=== PATIENT | female | born 1955 | race Two or more races ===

== ENCOUNTER → 2024-02-02 | Emergency (ER) | payer OTHER ==
[~2024-02-02] VITALS: Ht 152.4 cm; Wt 53.1 kg
[~2024-02-02] MED LIST: CIPR-173 PO; MET500T PO
[2024-02-02 17:22] VITALS: BP 145/83; PULSE 117; RESP 18; O2SAT 98
[2024-02-02 18:21] LABS: Urine Bacteria FEW /hpf (None Seen); Urine Blood TRACE /uL (Negative); Urine Clarity Clear (Clear); Urine Color Light-Yellow (Yellow); Urine Protein, UAD 2+ (Negative); Urine Specific Gravity 1.009 (1.001-1.035); Urine Urobilinogen Normal (Negative); Urine WBC 1 /hpf (0 - 5)
[2024-02-02 18:51] LABS: Basophils # (auto) 0 10 ^3/uL (0-0.2); Basophils % (auto) 0.4 % (0.0-2.0); Eosinophils # (auto) 0.1 10 ^3/uL (0-0.8); Eosinophils % (auto) 1.2 % (0.0-7.0); Hematocrit 28.5 % (36.0-46.0); Hemoglobin 9.5 g/dL (12.2-16.2); Lymphocytes # (auto) 1.6 10 ^3/uL (0.4-5.4); Lymphocytes % (auto) 14.5 % (10.0-50.0); Mean Corpuscular Hemoglobin 30.8 pg (28.0-32.0); Mean Corpuscular Hgb Conc. 33.5 g/dL (32.0-36.0); Mean Corpuscular Volume 92.1 fL (80.0-100.0); Monocytes # (auto) 1.2 10 ^3/uL (0-1.3); Monocytes % (auto) 10.4 % (0.0-12.0); Neutrophils # (auto) 8.2 10 ^3/uL (1.6-8.6); Neutrophils % (auto) 73.5 % (37.0-80.0); Red Blood Cells 3.09 10^6/uL (4.0-5.20); Red Cell Distribution Width 14.2 % (11.8-14.3); White Blood Cell 11.2 10^3/uL (4.4-10.8)
[2024-02-02 19:00] LABS: Alanine Aminotransferase 16 U/L (7-40); Albumin 4.1 g/dL (3.2-4.8); Alkaline Phosphatase 55 U/L (46-116); Anion Gap 12 (5-15); Aspartate Aminotransferase 8 U/L (13-40); BUN/Creatinine Ratio 7.3 (10.0-20.0); Blood Urea Nitrogen 37 mg/dL (9-23); Calcium 10.6 mg/dL (8.7-10.4); Carbon Dioxide 18 mmol/L (20-30); Chloride 111 mmol/L (98-107); Glucose 87 mg/dL (74-106); Potassium 3.7 mmol/L (3.5-5.1); Sodium 141 mmol/L (136-145)
[2024-02-02 19:01] LABS: Bilirubin, Total 0.2 mg/dL (0.2-1.0); Total Protein 6.6 g/dL (5.7-8.2)
== END | disposition home or self-care (01) ==
LOC: ER 16:36
DX: K57.32 Diverticulitis of large intestine without perforation or abscess without bleeding (principal); I12.9 Hypertensive chronic kidney disease with stage 1 through stage 4 chronic kidney disease, or unspecified chronic kidney disease; N18.9 Chronic kidney disease, unspecified; Z88.1 Allergy status to other antibiotic agents; Z88.8 Allergy status to other drugs, medicaments and biological substances
CPT/HCPCS: 36415; 74176; 80053; 81001; 85025

== ENCOUNTER 2024-04-03 10:17 | Inpatient (IN) | payer OTHER ==
[~2024-04-03] VITALS: Ht 152.4 cm; Wt 53.7 kg
[2024-04-03 11:28] LABS: Basophils # (auto) 0 10 ^3/uL (0-0.2); Basophils % (auto) 0.2 % (0.0-2.0); Eosinophils # (auto) 0.1 10 ^3/uL (0-0.8); Eosinophils % (auto) 0.6 % (0.0-7.0); Hematocrit 24.1 % (36.0-46.0); Hemoglobin 8.3 g/dL (12.2-16.2); Lymphocytes # (auto) 0.8 10 ^3/uL (0.4-5.4); Lymphocytes % (auto) 7.6 % (10.0-50.0); Mean Corpuscular Hemoglobin 32.5 pg (28.0-32.0); Mean Corpuscular Hgb Conc. 34.3 g/dL (32.0-36.0); Mean Corpuscular Volume 94.7 fL (80.0-100.0); Monocytes # (auto) 0.7 10 ^3/uL (0-1.3); Monocytes % (auto) 6.9 % (0.0-12.0); Neutrophils # (auto) 8.5 10 ^3/uL (1.6-8.6); Neutrophils % (auto) 84.7 % (37.0-80.0); Platelet Count (auto) 420 10^3/uL (140-450); Red Blood Cells 2.55 10^6/uL (4.0-5.20); Red Cell Distribution Width 14.5 % (11.8-14.3)
[2024-04-03 11:44] LABS: Alanine Aminotransferase 19 U/L (7-40); Albumin 4.3 g/dL (3.2-4.8); Alkaline Phosphatase 71 U/L (46-116); Anion Gap 9 (5-15); Aspartate Aminotransferase 10 U/L (13-40); BUN/Creatinine Ratio 7.4 (10.0-20.0); Blood Urea Nitrogen 48 mg/dL (9-23); Calcium 10.5 mg/dL (8.7-10.4); Carbon Dioxide 18 mmol/L (20-30); Chloride 112 mmol/L (98-107); Glucose 109 mg/dL (74-106); Lipase 26 U/L (12-53); Potassium 4.3 mmol/L (3.5-5.1); Sodium 139 mmol/L (136-145)
[2024-04-03 11:45] LABS: Bilirubin, Total < 0.2 mg/dL (0.2-1.0)
[2024-04-03 11:52] LABS: Urine Bacteria None Seen /hpf (None Seen)
[2024-04-03 12:06] LABS: Urine Blood Negative /uL (Negative); Urine Clarity Clear (Clear); Urine Color Light-Yellow (Yellow); Urine Protein, UAD 2+ (Negative); Urine Specific Gravity 1.009 (1.001-1.035); Urine Urobilinogen Normal (Negative); Urine WBC <1 /hpf (0 - 5)
[2024-04-03] MEDS: SODIUM CHLORIDE 0.9% 1,000 ML IV ONE ×2 (13:05→13:55)
[2024-04-03] MEDS: ALPRAZolam 0.25 MG TAB PO ONE (13:41)
[2024-04-03] MEDS: SODIUM CHLORIDE 0.9% 1,000 ML IV SCH (14:15)
[2024-04-03] MEDS ORDERED: NITROGLYCERIN 0.4 MG SL TAB SL PRN (14:15)
[2024-04-03] MEDS ORDERED: DOCUSATE SOD 100 MG CAP PO PRN (14:15)
[2024-04-03] MEDS ORDERED: MORPHINE SULFATE INJ 2 MG/ml SYRG IV PRN (14:15)
[2024-04-03] MEDS: levoFLOXacin 500MG 100 ML IV ONE (14:30)
[2024-04-03] MEDS: PANTOPRAZOLE 40 MG/10 ML VIAL INJ IV ONE (14:30)
[2024-04-03] MEDS: metroNIDAZOLE 500MG/100ML 100 ML IV ONE (14:30)
[2024-04-03] MEDS: ENOXAPARIN SOD 30 MG/0.3 ML SYRINGE SC SCH (16:00)
[2024-04-03 19:55] VITALS: PULSE 87; RESP 17; O2SAT 98
[2024-04-03] MEDS ORDERED: metroNIDAZOLE 500MG/100ML 100 ML IV SCH (22:00)
[2024-04-03] MEDS: cloNIDine HCL 0.1 MG TAB PO ONE (23:44)
[2024-04-04] MEDS ORDERED: PRAV20TA3 PO (00:58)
[2024-04-04] MEDS ORDERED: CARV6.2551 PO (00:58)
[2024-04-04] MEDS ORDERED: ONDA-188 PO (00:58)
[2024-04-04] MEDS ORDERED: MULT-1018 PO (00:58)
[2024-04-04] MEDS ORDERED: ALPR0.5T7 PO (00:58)
[2024-04-04] MEDS ORDERED: POTA1TAB4 PO (00:58)
[2024-04-04] MEDS ORDERED: BUSP10TA31 PO (00:58)
[2024-04-04] MEDS ORDERED: SERT-206 PO (00:58)
[2024-04-04] MEDS ORDERED: SPIR50TA5 PO (00:58)
[2024-04-04] MEDS ORDERED: LORA10TA6 PO (00:58)
[2024-04-04] MEDS ORDERED: LEVO75TA6 PO (00:58)
[2024-04-04] MEDS ORDERED: AMLO1TAB23 PO (00:58)
[2024-04-04] MEDS ORDERED: B-COTAB19 PO (00:58)
[2024-04-04] MEDS ORDERED: CALC0.25 PO (00:58)
[2024-04-04 01:00] VITALS: BP 156/76; PULSE 93; RESP 18; TEMP 98.7; O2SAT 97
[2024-04-04] MEDS: ACETAMINOPHEN/CODEINE#3 (300/30mg) TAB PO PRN (01:27)
[2024-04-04] MEDS: metroNIDAZOLE 500MG/100ML 100 ML IV SCH (01:37)
[2024-04-04 05:00] VITALS: BP 128/75; PULSE 93; RESP 19; TEMP 97.8; O2SAT 98
[2024-04-04 07:01] LABS: Basophils # (auto) 0 10 ^3/uL (0-0.2); Eosinophils # (auto) 0 10 ^3/uL (0-0.8); Hemoglobin 7.7 g/dL (12.2-16.2); Lymphocytes # (auto) 0.9 10 ^3/uL (0.4-5.4); Monocytes # (auto) 0.5 10 ^3/uL (0-1.3)
[2024-04-04 07:04] LABS: Basophils % (auto) 0.2 % (0.0-2.0); Eosinophils % (auto) 0.1 % (0.0-7.0); Hematocrit 22.8 % (36.0-46.0); Mean Corpuscular Hemoglobin 31.6 pg (28.0-32.0); Mean Corpuscular Hgb Conc. 33.7 g/dL (32.0-36.0); Mean Corpuscular Volume 93.5 fL (80.0-100.0); Monocytes % (auto) 5.9 % (0.0-12.0); Neutrophils # (auto) 7.2 10 ^3/uL (1.6-8.6); Neutrophils % (auto) 83.8 % (37.0-80.0); Platelet Count (auto) 371 10^3/uL (140-450); Red Blood Cells 2.43 10^6/uL (4.0-5.20); Red Cell Distribution Width 14.6 % (11.8-14.3); White Blood Cell 8.6 10^3/uL (4.4-10.8)
[2024-04-04 07:05] LABS: Alanine Aminotransferase 15 U/L (7-40); Albumin 3.8 g/dL (3.2-4.8); Alkaline Phosphatase 62 U/L (46-116); Anion Gap 14 (5-15); Aspartate Aminotransferase < 8 U/L (13-40); BUN/Creatinine Ratio 8.5 (10.0-20.0); Blood Urea Nitrogen 47 mg/dL (9-23); Calcium 9.9 mg/dL (8.7-10.4); Carbon Dioxide 15 mmol/L (20-30); Chloride 113 mmol/L (98-107); Glucose 86 mg/dL (74-106); Potassium 3.9 mmol/L (3.5-5.1); Sodium 142 mmol/L (136-145)
[2024-04-04 07:06] LABS: Bilirubin, Total < 0.2 mg/dL (0.2-1.0); Total Protein 6.1 g/dL (5.7-8.2)
[2024-04-04 08:47] VITALS: BP 146/70; PULSE 83; RESP 16; TEMP 98; O2SAT 97
[2024-04-04] MEDS ORDERED: levoFLOXacin 500MG 100 ML IV SCH (10:00)
[2024-04-04] MEDS: levoFLOXacin 250MG 50 ML IV SCH (10:36)
[2024-04-04] MEDS: PANTOPRAZOLE 40 MG/10 ML VIAL INJ IV SCH (10:37)
[2024-04-04] MEDS: ONDANSETRON HCL 4 MG/2 ML VIAL IV PRN (11:52)
[2024-04-04] MEDS: SODIUM BICARB 50mEq/50ml Vial 150 ML in D5W 5% 1,000 ML IV ONE (11:54)
[2024-04-04 13:05] VITALS: BP 162/79; PULSE 85; RESP 16; TEMP 98.3; O2SAT 99
[2024-04-04] MEDS: D5W/LACTATED RINGERS 1,000 ML IV SCH (14:37)
[2024-04-04] MEDS: POTASSIUM EFFERVESENT TAB 25 MEQ PO ONE (17:06)
[2024-04-04 17:16] VITALS: BP 179/85; PULSE 91; RESP 18; TEMP 98.2; O2SAT 98
[2024-04-04 21:00] VITALS: BP_SYST 163; BP_SYST 179; BP_DIAS 78; BP_DIAS 86; PULSE 77; PULSE 83; RESP 18; TEMP 98.7; O2SAT 93; O2SAT 96
[2024-04-04] MEDS: CARVEDILOL 3.125 MG TAB PO SCH (22:16)
[2024-04-04] MEDS: SODIUM BICARBONATE 650 MG TAB PO SCH (22:18)
[2024-04-05 01:00] VITALS: BP 148/72; PULSE 72; RESP 16; TEMP 98.6; O2SAT 97
[2024-04-05 04:27] LABS: Basophils # (auto) 0 10 ^3/uL (0-0.2); Basophils % (auto) 0.3 % (0.0-2.0); Eosinophils # (auto) 0.1 10 ^3/uL (0-0.8); Eosinophils % (auto) 1.2 % (0.0-7.0); Hemoglobin 7.4 g/dL (12.2-16.2); Lymphocytes # (auto) 1.1 10 ^3/uL (0.4-5.4); Monocytes # (auto) 0.6 10 ^3/uL (0-1.3); Neutrophils # (auto) 4.6 10 ^3/uL (1.6-8.6); White Blood Cell 6.4 10^3/uL (4.4-10.8)
[2024-04-05 04:31] LABS: Hematocrit 21.4 % (36.0-46.0); Lymphocytes % (auto) 17.3 % (10.0-50.0); Mean Corpuscular Hemoglobin 31.8 pg (28.0-32.0); Mean Corpuscular Hgb Conc. 34.6 g/dL (32.0-36.0); Monocytes % (auto) 9.5 % (0.0-12.0); Neutrophils % (auto) 71.7 % (37.0-80.0); Platelet Count (auto) 365 10^3/uL (140-450); Red Blood Cells 2.33 10^6/uL (4.0-5.20)
[2024-04-05 04:40] LABS: Alanine Aminotransferase 15 U/L (7-40); Albumin 3.5 g/dL (3.2-4.8); Alkaline Phosphatase 56 U/L (46-116); Anion Gap 8 (5-15); Aspartate Aminotransferase 10 U/L (13-40); BUN/Creatinine Ratio 7.6 (10.0-20.0); Bilirubin, Total < 0.2 mg/dL (0.2-1.0); Blood Urea Nitrogen 38 mg/dL (9-23); Calcium 9.4 mg/dL (8.7-10.4); Carbon Dioxide 24 mmol/L (20-30); Chloride 111 mmol/L (98-107); Glucose 140 mg/dL (74-106); Potassium 3.3 mmol/L (3.5-5.1); Sodium 143 mmol/L (136-145)
[2024-04-05 04:41] LABS: Total Protein 5.7 g/dL (5.7-8.2)
[2024-04-05 05:00] VITALS: BP 161/86; PULSE 73; RESP 18; TEMP 98.2; O2SAT 95
[2024-04-05] MEDS: cloNIDine HCL 0.1 MG TAB PO ONE (06:05)
[2024-04-05] MEDS: POTASSIUM CHL 20 Meq TABLET PO ONE (09:00)
[2024-04-05 09:18] VITALS: BP 152/83; PULSE 79; RESP 18; TEMP 97.7; O2SAT 97
[2024-04-05] MEDS: amLODIPine BESYLATE 5 MG TAB PO SCH (10:48)
[2024-04-05] MEDS: SPIRONOLACTONE 25 MG TAB PO SCH (10:49)
[2024-04-05] MEDS ORDERED: METR-344 PO (11:42)
[2024-04-05] MEDS ORDERED: LEVO500T91 PO (11:42)
[2024-04-05] MEDS ORDERED: ALPRAZolam 0.25 MG TAB PO PRN (11:45)
[2024-04-05] MEDS ORDERED: LEVO250T58 PO (11:45)
[2024-04-05] MEDS: POTASSIUM EFFERVESENT TAB 25 MEQ PO ONE (12:26)
[2024-04-05 13:29] VITALS: BP 147/66; PULSE 86; RESP 18; TEMP 98.1; O2SAT 98
[2024-04-05 17:19] VITALS: BP 154/82; PULSE 79; RESP 18; TEMP 98.4; O2SAT 97
[2024-04-05] MEDS: SEVELAMER 800 MG TAB PO SCH (18:00)
== END 2024-04-05 18:22 | disposition home or self-care (01) | DRG 392 ==
LOC: ER 10:17 → OVERFLOW 14:19 → WEST WING 23:49
PROVIDERS: ADMIT Nurse Practitioner Family; ATTEND Internal Medicine Geriatric Medicine
DX: K57.32 Diverticulitis of large intestine without perforation or abscess without bleeding (principal); I12.0 Hypertensive chronic kidney disease with stage 5 chronic kidney disease or end stage renal disease; N18.5 Chronic kidney disease, stage 5; D63.1 Anemia in chronic kidney disease; E87.6 Hypokalemia; G25.81 Restless legs syndrome; Z90.49 Acquired absence of other specified parts of digestive tract; Z85.038 Personal history of other malignant neoplasm of large intestine; Z88.0 Allergy status to penicillin; Z88.1 Allergy status to other antibiotic agents; Z80.0 Family history of malignant neoplasm of digestive organs
CPT/HCPCS: 36415; 71045; 74176; 76775; 80053; 81001; 83690; 83735; 83970; 84100; 85025; 99291; G0378; J2405; J2470; J3490

== ENCOUNTER 2024-06-24 09:12 | Inpatient (IN) | payer OTHER ==
[~2024-06-24] VITALS: Ht 152.4 cm; Wt 56.0 kg
[~2024-06-24 09:12] MED LIST changes: +ALPR0.5T7 PO; +AMLO1TAB23 PO; +B-COTAB19 PO; +BUSP10TA31 PO; +CALC0.25 PO; +CARV6.2551 PO; -CIPR-173 PO; +LEVO250T58 PO; +LEVO75TA6 PO; +LORA10TA6 PO; -MET500T PO; +METR-344 PO; +MULT-1018 PO; +ONDA-188 PO; +POTA1TAB4 PO; +PRAV20TA3 PO; +SERT-206 PO; +SPIR50TA5 PO
--- NOTE | 2024-06-24 10:15 | ED.PDOC ---
History of Present Illness HPI Comments 68Y F with PMHx HTN and CKD presents to ED for chief complaint SOB x4-5days. Additional symptoms include congestion, cough, headache, and body aches. Per daughter, pt's grandson and are also experiencing the same symptoms at home. Pt attempted to take OTC medications for relief but the symptoms did not improve. Chief Complaint: Shortness of Breath Time Seen by MD: 10:15 Primary Care Provider: Jessi GRIFFIN) Reviewed Notes: Medications, Allergies Allergies: Coded Allergies: Amoxicillin (Verified Allergy, Severe, 02/02/24) Cephalexin (Verified Allergy, Severe, 02/02/24) Clavulanic Acid (Verified Allergy, Severe, 02/02/24) Erythromycin (Verified Allergy, Severe, 02/02/24) Home Meds Active Scripts Levofloxacin Hemihydrate (LEVOFLOXACIN) 250 Mg Tab, 250 MG PO 1000 for 10 Days, #10 TAB Prov:MISAEL GORDON MD 04/05/24 Metronidazole (Flagyl) 500 Mg Tab, 500 MG PO TID for 10 Days, #30 TAB Prov:MISAEL GORDON MD 04/05/24 Reported Medications Loratadine (Loratadine) 10 Mg Tab, 10 MG PO DAILY, TAB 04/04/24 B-Complex Vitamins (Vitamin B Complex) Complex Tab, 1 TAB PO DAILY, TAB 04/04/24 Multiple Vitamin (Multivitamins) Tab, 1 TAB PO DAILY, TAB 04/04/24 Alprazolam (Alprazolam) 0.5 Mg Tab, 1 TAB PO DAILY PRN for ANXIETY 04/04/24 Ondansetron HCl (Ondansetron Hydrochloride) 4 Mg Tab, 1 TAB PO DAILY PRN for NAUSEA / VOMITING 04/04/24 Buspirone HCl (Buspirone HCl) 10 Mg Tab, 1 TAB PO BID 04/04/24 Calcitriol (Calcitriol) 0.25 Mcg Cap, 1 CAP PO DAILY 04/04/24 Levothyroxine Sodium (Levothyroxine Sodium) 75 Mcg Tab, 1 TAB PO DAILY 04/04/24 Sertraline Hcl (Sertraline Hcl) 50 Mg Tab, 1 TAB PO DAILY 04/04/24 Amlodipine Besylate (Amlodipine Besylate) 10 Mg Tab, 1 TAB PO DAILY 04/04/24 Carvedilol (Carvedilol) 6.25 Mg Tab, 1 TAB PO BID 04/04/24 Pravastatin Sodium (PRAVACHOL TABLET) 20 Mg Tb, 80 MG PO DAILY 04/04/24 Spironolactone (Spironolactone) 50 Mg Tab, 50 MG PO DAILY, TAB 04/04/24 Potassium Chloride (K-Tab) 20 Meq Tab, 1 TAB PO DAILY 04/04/24 Information Source: Patient, Relative (Child) Mode of Arrival: Wheelchair Severity: Moderate Timing: Days Duration: Since onset Past Medical History PAST MEDICAL HISTORY: Cancer, CKF, HTN QUALITY ASSURANCE ASSOCIATE History: No Pertinent QUALITY ASSURANCE ASSOCIATE History Family History Family History: Reviewed,noncontributory to illness, No family hx of Cancer, No family hx of DM, No family hx of Heart gerri, No family hx of HTN, No family hx ofKidney gerri, No family hx of Liver gerri, No family hx of Lung gerri, No family hx of Stroke Social History Smoker: Non-Smoker Alcohol: Denies ETOH Use Drugs: Denies Drug Use Lives In: Home Constitutional: reports: others (body aches); denies: chills, diaphoresis, fatigue, fever, malaise, sweats, weakness EENTM: reports: nose congestion; denies: blurred vision, double vision, ear bleeding, ear discharge, ear drainage, ear pain, ear ringing, eye pain, eye redness, hearing loss, mouth pain, mouth swelling, nasal discharge, nose bleeding, nose pain, photophobia, tearing, throat pain, throat swelling, voice changes, others Respiratory: reports: cough, shortness of breath; denies: hemoptysis, orthopnea, SOB at rest, SOB with excertion, stridor, wheezing, others Cardiovascular: denies: chest pain, dizzy spells, diaphoresis, Dyspnea on exertion, edema, irregular heart beat, left arm pain, lightheadedness, palpitations, PND, syncope, others Gastrointestinal: denies: abdomen distended, abdominal pain, blood streaked bowels, constipated, diarrhea, dysphagia, difficulty swallowing, hematemesis, melena, nausea, poor appetite, poor fluid intake, rectal bleeding, rectal pain, vomiting, others Genitourinary: denies: abnormal vagina bleeding, burning, dyspareunia, dysuria, flank pain, frequency, hematuria, incontinence, pain, , vagina discharge, urgency, others Neurological: reports: headache; denies: dizziness, fainting, left sided numbness, left sided weakness, numbness, paresthesia, pre-existing deficit, right sided numbness, right sided weakness, seizure, speech problems, tingling, tremors, weakness, others Musculoskeletal: denies: back pain, gout, joint pain, joint swelling, muscle pain, muscle stiffness, neck pain, others Integumetry: denies: bruises, change in color, change in hair/nails, dryness, laceration, lesions, lumps, rash, wounds, others Allergic/Immunocompromised: denies: Difficulty Healing, Frequent Infections, Hives, Itching, others Hematologic/Lymphatic: denies: anemia, blood clots, easy bleeding, easy bruising, swollen glands, others Endocrine: denies: excessive hunger, excessive sweating, excessive thirst, excessive urination, flushing, intolerance to cold, intolerance to heat, unexplained weight gain, unexplained weight loss, others Psychiatric: denies: anxiety, bipolar disorder, depression, hopeless, panic disorder, schizophrenia, sleepless, suicidal, others All Other Systems: Reviewed and Negative Physical Exam General Appearance: No Apparent Distress, Normal HEENT: Normal ENT Inspection, Pharynx Normal, TMs Normal Neck: Full Range of Motion, Non-Tender, Normal, Normal Inspection Respiratory: Chest Non-Tender, Lungs Clear, No Accessory Muscle Use, No Respiratory Distress, Normal Breath Sounds Cardiovascular: No Edema, No JVD, No Murmur, No Gallop, Normal Peripheral Pulses, Regular Rate/Rhythm Breast Exam: Deferred Gastrointestinal: No Organomegaly, Non Tender, No Pulsatile Mass, Normal Bowel Sounds, Soft Genitalia: Deferred Pelvic: Deferred Rectal: Deferred Extremities: No calf tenderness, Normal capillary refill, Normal inspection, Normal range of motion, Non-tender, No pedal edema Musculoskeletal : Apperance: Normal Neurologic: Alert, tangible personal property appraiser II-XII nml as Tested, No Motor Deficits, Normal Affect, Normal Mood, No Sensory Deficits Cerebellar Function: Normal Reflexes: Normal Skin: Dry, Normal Color, Warm Lymphatic: No Adenopathy Was a procedure done? Was a procedure done?: No EKG EKG : Pulse Rate (adult): 83 Donnelly: Normal Cardiac Rhythm: PVC's ST: Old Differential Dx Considerations may include: , NSTEMI, bacterial pneumonia, viral pneumonia, COVID-19, influenza, CHF X-Ray, Labs, Meds, VS Vital Signs Date Time Temp Pulse Resp B/P (MAP) Pulse Ox O2 Delivery O2 Flow Rate FiO2 06/24/24 11:01 85 18 97 Room Air 06/24/24 11:01 98.1 85 18 132/57 (82) 97 98.1 06/24/24 09:49 83 06/24/24 09:41 99.1 84 16 119/53 (75) 97 Lab Test 06/24/24 11:23 06/24/24 10:40 Range/Units Influenza Type A Antigen Pending Influenza Type B Antigen Pending SARS-CoV-2 Antigen (Rapid) Pending White Blood Count 6.2 4.4-10.8 10^3/uL Red Blood Count 2.57 L 4.0-5.20 10^6/uL Hemoglobin 8.3 L 12.2-16.2 g/dL Hematocrit 25.7 L 36.0-46.0 % Mean Corpuscular Volume 99.8 80.0-100.0 fL Mean Corpuscular Hemoglobin 32.4 H 28.0-32.0 pg Mean Corpuscular Hemoglobin Concent 32.5 32.0-36.0 g/dL Red Cell Distribution Width 15.2 H 11.8-14.3 % Platelet Count 227 140-450 10^3/uL Mean Platelet Volume 7.8 6.9-10.8 fL Neutrophils (%) (Auto) 77.5 37.0-80.0 % Lymphocytes (%) (Auto) 12.3 10.0-50.0 % Monocytes (%) (Auto) 9.4 0.0-12.0 % Eosinophils (%) (Auto) 0.5 0.0-7.0 % Basophils (%) (Auto) 0.3 0.0-2.0 % Neutrophils # (Auto) 4.8 1.6-8.6 10 ^3/uL Lymphocytes # (Auto) 0.8 0.4-5.4 10 ^3/uL Monocytes # (Auto) 0.6 0-1.3 10 ^3/uL Eosinophils # (Auto) 0 0-0.8 10 ^3/uL Basophils # (Auto) 0 0-0.2 10 ^3/uL Nucleated Red Blood Cells 0.1 % Sodium Level 138 136-145 mmol/L Potassium Level 5.9 *H 3.5-5.1 mmol/L Chloride Level 110 H 98-107 mmol/L Carbon Dioxide Level 14 L 20-31 mmol/L Anion Gap 14 5-15 Blood Urea Nitrogen 68 H 9-23 mg/dL Creatinine 7.08 H 0.550-1.02 mg/dL Glomerular Filtration Rate Calc 6 >90 mL/min BUN/Creatinine Ratio 9.6 L 10.0-20.0 Serum Glucose 83 74-106 mg/dL Calcium Level 9.5 8.7-10.4 mg/dL Troponin I High Sensitivity 67 *H </=34 ng/L [place] [address] Ph: [phone] DIAGNOSTIC IMAGING Diagnostic Imaging Report : [id number] Signed PATIENT: BRITTA YARBROUGH LYNNACCT: [id number] UNIT: [id number] : 1955 LOC: ER ROOM / BED: / AGE / SEX: 68 / F ADM STATUS: REG ER SERVICE 9 ORDERING PHYSICIAN: CLEMENTINA GREER MD PROCEDURE(s): CXR2 - CHEST TWO VIEWS ROUTINE REASON: SOB ORDER NUMBER(s): [id number], ACCESSION NUMBER(s): [id number] CHEST TWO VIEWS ROUTINE CLINICAL HISTORY: SOB COMPARISON: None TECHNIQUE: Frontal and lateral view of the chest was obtained FINDINGS: Lines and Tubes: None Lungs: No focal consolidation. Pleura: No effusion. No pneumothorax. Cardiomediastinal contours: Cardiomegaly Bones: No acute osseous abnormality. IMPRESSION: No acute cardiopulmonary disease. ATED BY: LAYA KABA MD DICTATED DATE/TIME: 06/24/241041 SIGNED BY: LAYA KABA MD SIGNED DATE/TIME: 06/24/241041 CC: X-Ray, Labs, Meds, VS Comment This 68-year-old female presents secondary to 3 4 day history of shortness of breath, denies body aches and malaise. She was noted to have a potassium 5.9, hemoglobin 8.5, and elevated troponin additionally, her GFR is 6. She was noted to have stage 3 chronic kidney disease. As she is endorsing chest pain has a heart score 4 with an elevated troponin, the patient further workup and management. Initially, she will need a consult to Nephrology for possible vascular access. Time of 1ST Reevaluation: 10:49 Reevaluation 1ST: Unchanged Patient Education/Counseling: Diagnosis, Treatment Family Education/Counseling: Diagnosis, Treatment Departure 1 Departure Time of Disposition: 12:13 Impression: Primary Impression: NSTEMI (non-ST elevated myocardial infarction) Additional Impressions: Renal failure Hyperkalemia Body aches Disposition: ADMITTED INPATIENT Admit to: Tele Condition: Serious Critical Care Note Critical Care Time?: No Stability Stability form required: No Heart Score Heart Score: Heart Score Response (Comments) Value History N/A 0 EKG N/A 0 Age N/A 0 Risk Factors N/A 0 Troponin N/A 0 Total 0 I personally scribed for SLAVA PEDRAZA MD ([email or web address]) on 06/24/24 at 10:36. Electronically submitted by Cindi Olivo ([email or web address]). I personally scribed for SLAVA PEDRAZA MD ([email or web address]) on 06/24/24 at 11:34. Electronically submitted by Cindi Olivo ([employer]). SLAVA PEDRAZA MD Jun 24, 2024 10:15
--- NOTE | 2024-06-24 10:44 | DVH ---
XY CHEST TWO VIEWS ROUTINE CLINICAL HISTORY: SOB COMPARISON: None TECHNIQUE: Frontal and lateral view of the chest was obtained FINDINGS: Lines and Tubes: None Lungs: No focal consolidation. Pleura: No effusion. No pneumothorax. Cardiomediastinal contours: Cardiomegaly Bones: No acute osseous abnormality. IMPRESSION: No acute cardiopulmonary disease.
[2024-06-24 11:23] LABS: Basophils # (auto) 0 10 ^3/uL (0-0.2); Basophils % (auto) 0.3 % (0.0-2.0); Eosinophils # (auto) 0 10 ^3/uL (0-0.8); Lymphocytes # (auto) 0.8 10 ^3/uL (0.4-5.4); Nucleated Red Blood Cells % 0.1 %; Platelet Count (auto) 227 10^3/uL (140-450)
[2024-06-24 11:26] LABS: Eosinophils % (auto) 0.5 % (0.0-7.0); Hematocrit 25.7 % (36.0-46.0); Hemoglobin 8.3 g/dL (12.2-16.2); Lymphocytes % (auto) 12.3 % (10.0-50.0); Mean Corpuscular Hemoglobin 32.4 pg (28.0-32.0); Mean Corpuscular Hgb Conc. 32.5 g/dL (32.0-36.0); Mean Corpuscular Volume 99.8 fL (80.0-100.0); Monocytes # (auto) 0.6 10 ^3/uL (0-1.3); Monocytes % (auto) 9.4 % (0.0-12.0); Neutrophils # (auto) 4.8 10 ^3/uL (1.6-8.6); Neutrophils % (auto) 77.5 % (37.0-80.0); Red Blood Cells 2.57 10^6/uL (4.0-5.20); Red Cell Distribution Width 15.2 % (11.8-14.3); White Blood Cell 6.2 10^3/uL (4.4-10.8)
[2024-06-24 11:30] LABS: Sodium 138 mmol/L (136-145)
[2024-06-24 11:31] LABS: Anion Gap 14 (5-15)
[2024-06-24 11:32] LABS: Calcium 9.5 mg/dL (8.7-10.4)
[2024-06-24 11:36] LABS: Glucose 83 mg/dL (74-106)
[2024-06-24 11:37] LABS: BUN/Creatinine Ratio 9.6 (10.0-20.0)
[2024-06-24 11:44] LABS: Blood Urea Nitrogen 68 mg/dL (9-23); Carbon Dioxide 14 mmol/L (20-31); Chloride 110 mmol/L (98-107)
[2024-06-24 11:48] LABS: Potassium 5.9 mmol/L (3.5-5.1)
[2024-06-24] MEDS: ALBUTEROL SULF 2.5 MG/0.5ML(0.5%) NEB SOLN NEB ONE (12:41)
[2024-06-24 13:00] VITALS: PULSE 85; RESP 18; O2SAT 100
[2024-06-24 13:00] LABS: COVID19 ANTIGEN SOFIA FIA NEGATIVE (NEGATIVE)
[2024-06-24 13:05] LABS: Rapid Influenza A Positive (Negative); Rapid Influenza B Negative (Negative)
[2024-06-24] MEDS ORDERED: DOCUSATE SOD 100 MG CAP PO PRN (16:00)
[2024-06-24] MEDS ORDERED: HYDROcodone-ACET 5/325MG TAB PO PRN (16:00)
[2024-06-24] MEDS ORDERED: MORPHINE SULFATE INJ 2 MG/ml SYRG IV PRN (16:00)
[2024-06-24] MEDS ORDERED: ONDANSETRON HCL 4 MG/2 ML VIAL IV PRN (16:00)
[2024-06-24] MEDS ORDERED: NITROGLYCERIN 0.4 MG SL TAB SL PRN (16:00)
[2024-06-24] MEDS ORDERED: ACETAMINOPHEN 325 MG TAB PO PRN (16:00)
[2024-06-24] MEDS ORDERED: ALBUTEROL SULF 2.5 MG/0.5ML(0.5%) NEB SOLN NEB PRN (16:15)
--- NOTE | 2024-06-24 16:22 | DVHHP2 ---
History of Present Illness Reason for Visit: Shortness of breath History of Present Illness Donya Palomares is a 68-year-old female with past medical history of hypertension, colon cancer, and chronic kidney disease who came in due to shortness of breath. Patient states she has been having flu like symptoms for about 4 days with headache, earache, cough, throat pain, and shortness of breath. Her symptoms have been worsening causing her to come to the hospital. Patient's entire family has been sick for the last week. Patient states that she sees a housekeeping worker down is Carlos Mckeon who she has been working with for her kidney failure. She has begun the process of having a fistula created on her left forearm. She has a final surgery Scheduled for July 07 and will be starting hemodialysis sometime after the of the year. Cardiovascular: HTN Heme/Onc: Cancer (colon) Renal/: Chronic renal insuff Past Surgical History: Other (colon resection) Smoke: No ALCOHOL: none Drugs: None Lives: with Family Domestic Violence: Neg Review of Systems Constitutional: Yes: Weakness, Malaise, Other (headache and earache); No: Fever, Chills, Sweats Eyes: No: Pain, Vision change, Conjunctivae inflammation, Eyelid inflammation, Other, Redness ENT: No: Ear pain, Ear discharge, Nose pain, Nose discharge, Nose congestion, Mouth pain, Mouth swelling, Throat pain, Throat swelling, Other Respiratory: Cough, Shortness of breath, SOB with excertion; No: Dry, Wheezing, Hemoptysis, Pleuritic Pain, Sputum, Wheezing, Other Cardiovascular: No: Chest Pain, Palpitations, Orthopnea, Paroxysmal Noc. Dyspnea, Edema, Lt Headedness, Other Gastrointestinal: No: Nausea, Vomiting, Abdominal Pain, Diarrhea, Constipation, Melena, Hematochezia, Other Genitourinary: No Dysuria, No Frequency, No Incontinence, No Hematuria, No Retention, No Other Musculoskeletal: No: other, neck pain, shoulder pain, arm pain, back pain, hand pain, leg pain, foot pain Skin: No: Rash, Lesions, Jaundice, Bruising, Other Neurological: No: Weakness, Numbness, Incoordination, Change in speech, Confusion, Seizures, Other Allergies: Coded Allergies: Amoxicillin (Verified Allergy, Severe, 02/02/24) Cephalexin (Verified Allergy, Severe, 02/02/24) Clavulanic Acid (Verified Allergy, Severe, 02/02/24) Erythromycin (Verified Allergy, Severe, 02/02/24) Medications Current Medications Medications Dose Ordered Sig/Thanh Route Start Time Stop Time Status Last Admin Dose Admin Acetaminophen/ Hydrocodone Bitart 1 tab Q4HP PRN PO 06/24/24 16:00 UNV Ondansetron HCl 4 mg Q4HP PRN IV 06/24/24 16:00 UNV Docusate Sodium 100 mg BIDPRN PRN PO 06/24/24 16:00 UNV Acetaminophen 650 mg Q6HP PRN PO 06/24/24 16:00 UNV Nitroglycerin 0.4 mg Q5MINP PRN SL 06/24/24 16:00 UNV Morphine Sulfate 2 mg Q30M PRN IV 06/24/24 16:00 UNV Sodium Chloride 1,000 ml @ 100 mls/hr Q10H IV 06/24/24 16:00 UNV Alprazolam 0.5 mg DAILY PRN PO 06/24/24 16:00 UNV Buspirone HCl 10 mg BID PO 06/24/24 22:00 UNV Calcitriol 0.25 mcg DAILY PO 06/25/24 10:00 UNV Loratadine 10 mg DAILY PO 06/25/24 10:00 UNV Multivitamins 1 tab DAILY PO 06/25/24 10:00 UNV Pravastatin Sodium 80 mg DAILY PO 06/25/24 10:00 UNV Sertraline HCl 50 mg DAILY PO 06/25/24 10:00 UNV Patient Own Medication 1 tab DAILY PO 06/25/24 10:00 UNV Patient Own Medication 1 tab DAILY PO 06/25/24 10:00 UNV Patient Own Medication 1 tab BID PO 06/24/24 22:00 UNV Patient Own Medication 1 tab DAILY PO 06/25/24 10:00 UNV Patient Own Medication 50 mg DAILY PO 06/25/24 10:00 UNV Exam Vital Signs Vital Signs Date Time Temp Pulse Resp B/P (MAP) Pulse Ox O2 Delivery O2 Flow Rate FiO2 06/24/24 12:41 20 95 Room Air* 0 21 06/24/24 12:16 83 06/24/24 11:01 98.1 132/57 (82) 98.1 General Appearance: Alert, Oriented X3, Cooperative, mild distress HEENT: Atraumatic, PERRLA Respiratory: Other (Diminished breath sounds) Cardiovascular: Regular rate, Normal S1, Normal S2 Abdominal: Normal bowel sounds, Soft, No tenderness Extremities: No clubbing, No cyanosis, No edema, Normal pulses, No tenderness/swelling, Other (Left arm fistula) Skin: No rashes, No breakdown, No significant lesion Neuro: Normal gait, Normal speech, Strength at 5/5 X4 ext Psych/Mental Status: Mental status NL, Mood NL Labs/Xrays Labs Test 06/24/24 13:07 06/24/24 11:23 06/24/24 10:40 Range/Units Troponin I High Sensitivity 63 *H </=34 ng/L Influenza Type A Antigen Positive Negative Influenza Type B Antigen Negative Negative SARS-CoV-2 Antigen (Rapid) Negative NEGATIVE White Blood Count 6.2 4.4-10.8 10^3/uL Red Blood Count 2.57 L 4.0-5.20 10^6/uL Hemoglobin 8.3 L 12.2-16.2 g/dL Hematocrit 25.7 L 36.0-46.0 % Mean Corpuscular Volume 99.8 80.0-100.0 fL Mean Corpuscular Hemoglobin 32.4 H 28.0-32.0 pg Mean Corpuscular Hemoglobin Concent 32.5 32.0-36.0 g/dL Red Cell Distribution Width 15.2 H 11.8-14.3 % Platelet Count 227 140-450 10^3/uL Mean Platelet Volume 7.8 6.9-10.8 fL Neutrophils (%) (Auto) 77.5 37.0-80.0 % Lymphocytes (%) (Auto) 12.3 10.0-50.0 % Monocytes (%) (Auto) 9.4 0.0-12.0 % Eosinophils (%) (Auto) 0.5 0.0-7.0 % Basophils (%) (Auto) 0.3 0.0-2.0 % Neutrophils # (Auto) 4.8 1.6-8.6 10 ^3/uL Lymphocytes # (Auto) 0.8 0.4-5.4 10 ^3/uL Monocytes # (Auto) 0.6 0-1.3 10 ^3/uL Eosinophils # (Auto) 0 0-0.8 10 ^3/uL Basophils # (Auto) 0 0-0.2 10 ^3/uL Nucleated Red Blood Cells 0.1 % Sodium Level 138 136-145 mmol/L Potassium Level 5.9 *H 3.5-5.1 mmol/L Chloride Level 110 H 98-107 mmol/L Carbon Dioxide Level 14 L 20-31 mmol/L Anion Gap 14 5-15 Blood Urea Nitrogen 68 H 9-23 mg/dL Creatinine 7.08 H 0.550-1.02 mg/dL Glomerular Filtration Rate Calc 6 >90 mL/min BUN/Creatinine Ratio 9.6 L 10.0-20.0 Serum Glucose 83 74-106 mg/dL Calcium Level 9.5 8.7-10.4 mg/dL XY CHEST TWO VIEWS ROUTINE FINDINGS: Lines and Tubes: None Lungs: No focal consolidation. Pleura: No effusion. No pneumothorax. Cardiomediastinal contours: Cardiomegaly Bones: No acute osseous abnormality. IMPRESSION: No acute cardiopulmonary disease. Assessment/Plan Assessment/Plan Assessment: Acute on chronic kidney failure, Hyperkalemia, Influenza A +, Elevated troponin, Hypertension, Plan: Admit to Tele, Nephrology consult, IV hydration, Lokelma, Manage/Monitor electrolytes closely, Supportive measures for influenza, Breathing treatments as needed, Supplemental oxygen as needed, Consider IV antibiotics if symptoms do not improve, Home medications reconciled, Plan discussed with: Patient My Orders Orders - MANE MCKAY TELECOMMUNICATION OPERATOR Procedure Category Date Status Time Admit ADMIT 06/24/24 Transmitted 15:46 Code Status CODE 06/24/24 Transmitted 15:46 Renal DIET 06/24/24 Transmitted Standard(2gna,3gk,Lopho) Dinner Hydrocodone-Acet PHA 06/24/24 Logged 5/325mg Tab ([place] 16:00 Ondansetron Hcl PHA 06/24/24 Logged (Zofran) 16:00 Docusate Sodium PHA 06/24/24 Logged Capsule (Colace 16:00 Complete Blood Count LAB 06/25/24 Verified 04:00 Comprehensive LAB 06/25/24 Verified Metabolic Panel 04:00 Condition: Serious MOHIT 06/24/24 In Process 15:46 Acetaminophen Tablet PHA 06/24/24 Logged (Tylenol Tablet) 16:00 Nitroglycerin PHA 06/24/24 Logged Sublingual (Ntrostat 16:00 Morphine Sulfate PHA 06/24/24 Logged Injection 16:00 Stat Ekg For Chest MOHIT 06/24/24 In Process Pain 15:46 Notify Of Changes MOHIT 06/24/24 In Process From Base 15:46 Dental Ceramist For [facility] 06/24/24 In Process 24 Hours 15:46 Emergency Dysrhythmia [facility] 06/24/24 In Process Protocol 15:46 Rhythm Strips Once [facility] 06/24/24 In Process Every Shift 15:46 Oxygen By Nasal RT 06/24/24 Transmitted Cannula 15:46 Strict I & O MOHIT 06/24/24 In Process 15:46 *[facility] CONS 06/24/24 Transmitted -[place] 15:46 Sodium Chloride 0.9% PHA 06/24/24 Logged 16:00 Sodium Chloride 0.9% PHA 06/24/24 Logged 16:00 Sodium Zirconium PHA 06/24/24 Logged Cyclosilicate 16:00 Alprazolam Tablet PHA 06/24/24 Logged (Xanax Tablet) 16:00 Buspirone Hcl Tablet PHA 06/24/24 Logged (Buspar Tablet) 22:00 Calcitriol Capsule PHA 06/25/24 Logged (Rocaltrol Capsule) 10:00 Loratadine Tablet PHA 06/25/24 Logged (Claritin Tablet) 10:00 Multiple Vitamin PHA 06/25/24 Logged Tablet (Mvi Tab) 10:00 Pravastatin Sodium PHA 06/25/24 Logged Tablet (Pravachol Tab 10:00 Sertraline Hcl PHA 06/25/24 Logged (Zoloft) 10:00 (Nf) Amlodipine PHA 06/25/24 Logged Besylate 10:00 (Nf) B-Complex PHA 06/25/24 Logged Vitamins (Vitamin B 10:00 (Nf) Carvedilol PHA 06/24/24 Logged 22:00 (Nf) Levothyroxine PHA 06/25/24 Logged Sodium 10:00 (Nf) Spironolactone PHA 06/25/24 Logged 10:00 Throat Lozenges PHA 06/24/24 Verified (Cepastat Lozenges) 16:00 Guaifenesin-Dextromet PHA 06/24/24 Verified Liquid (Robitussin 16:00 Date of Service: Jun 24, 2024 Billing Provider: MANE MCKAY Common Visit Codes: [id number] INP/OBS CARE (MOD) MANE MCKAY Jun 24, 2024 16:22
[2024-06-24] MEDS: SODIUM CHLORIDE 0.9% 500 ML IV ONE (17:10)
[2024-06-24] MEDS: SODIUM ZIRCONIUM CYCL 10 GM PAK PO ONE (17:10)
[2024-06-24] MEDS: SODIUM CHLORIDE 0.9% 1,000 ML IV SCH (17:11)
[2024-06-24] MEDS: guaiFENesin-DM 100/10mg/5ml SYR PO PRN (17:38)
[2024-06-24] MEDS: IPRATROPIUM BROM 0.5 MG/2.5ML INH SOL NEB SCH (18:00)
[2024-06-24 19:00] VITALS: PULSE 88; RESP 18; O2SAT 95
[2024-06-24] MEDS ORDERED: IPRATROPIUM BROM 0.5 MG/2.5ML INH SOL NEB PRN (19:15)
[2024-06-24 19:53] VITALS: RESP 16; O2SAT 100
[2024-06-24 21:24] LABS: Urine Bacteria FEW /hpf (None Seen); Urine Blood Negative /uL (Negative); Urine Clarity Turbid (Clear); Urine Color Light-Yellow (Yellow); Urine Mucus FEW (None Seen); Urine Protein, UAD 3+ (Negative); Urine Specific Gravity 1.017 (1.001-1.035); Urine Urobilinogen Normal (Negative); Urine WBC 3 /hpf (0 - 5); Urine pH 5.5 (5.0-9.0)
[2024-06-24 21:45] VITALS: BP 153/54; PULSE 90; RESP 18; TEMP 98.3; O2SAT 93
[2024-06-24] MEDS: CARVEDILOL 3.125 MG TAB PO SCH (22:12)
[2024-06-24] MEDS: ATORVASTATIN 20 MG TAB PO SCH (22:12)
[2024-06-24] MEDS: busPIRone HCL 10 MG TAB PO SCH (22:13)
[2024-06-24] MEDS ORDERED: ROPI5TAB20 PO (22:32)
[2024-06-25] VITALS (11 sets, daily range): BP systolic 120–144; BP diastolic 47–80; PULSE 78–97; RESP 16–22; TEMP 97.7–98.6; O2SAT 92–98
[2024-06-25] MEDS ORDERED: GABA-1308 PO (01:44)
[2024-06-25] MEDS: ALPRAZolam 0.5 MG TAB PO PRN (01:55)
[2024-06-25 08:34] LABS: Basophils # (auto) 0 10 ^3/uL (0-0.2); Basophils % (auto) 0.4 % (0.0-2.0); Eosinophils # (auto) 0 10 ^3/uL (0-0.8); Hemoglobin 7.7 g/dL (12.2-16.2); Lymphocytes # (auto) 0.7 10 ^3/uL (0.4-5.4); Lymphocytes % (auto) 19.7 % (10.0-50.0); Nucleated Red Blood Cells % 0.1 %; White Blood Cell 3.8 10^3/uL (4.4-10.8)
[2024-06-25 08:36] LABS: Eosinophils % (auto) 0.5 % (0.0-7.0); Hematocrit 22.7 % (36.0-46.0); Mean Corpuscular Hemoglobin 32.8 pg (28.0-32.0); Mean Corpuscular Volume 96.3 fL (80.0-100.0); Monocytes # (auto) 0.5 10 ^3/uL (0-1.3); Monocytes % (auto) 12.3 % (0.0-12.0); Neutrophils # (auto) 2.5 10 ^3/uL (1.6-8.6); Neutrophils % (auto) 67.1 % (37.0-80.0); Platelet Count (auto) 209 10^3/uL (140-450); Red Blood Cells 2.36 10^6/uL (4.0-5.20)
[2024-06-25 08:49] LABS: Albumin 3.5 g/dL (3.2-4.8); Alkaline Phosphatase 70 U/L (46-116); Anion Gap 16 (5-15); Aspartate Aminotransferase 32 U/L (13-40); BUN/Creatinine Ratio 8.8 (10.0-20.0); Glucose 83 mg/dL (74-106); Potassium 4.3 mmol/L (3.5-5.1); Sodium 142 mmol/L (136-145)
[2024-06-25 08:50] LABS: Total Protein 5.7 g/dL (5.7-8.2)
[2024-06-25 08:56] LABS: Alanine Aminotransferase 61 U/L (7-40); Bilirubin, Total < 0.2 mg/dL (0.2-1.0); Blood Urea Nitrogen 66 mg/dL (9-23); Carbon Dioxide 14 mmol/L (20-31); Chloride 112 mmol/L (98-107)
[2024-06-25] MEDS: MULTIPLE VITAMIN TAB PO SCH (09:10)
[2024-06-25] MEDS: LEVOTHYROXINE SODIUM 25 MCG TAB PO SCH (09:10)
[2024-06-25] MEDS: CALCITRIOL 0.25 MCG CAP PO SCH (09:11)
[2024-06-25] MEDS: SERTRALINE HCL 50 MG TAB PO SCH (09:11)
[2024-06-25] MEDS: amLODIPine BESYLATE 5 MG TAB PO SCH (09:12)
[2024-06-25] MEDS: LORATADINE 10 MG TAB PO SCH (09:13)
[2024-06-25] MEDS: VITAMIN B COMPLEX PO SCH (09:14)
[2024-06-25] MEDS: THROAT LOZENGES(CEPASTAT) MT PRN (09:32)
[2024-06-25] MEDS ORDERED: SPIRONOLACTONE 25 MG TAB PO SCH (10:00)
--- NOTE | 2024-06-25 14:36 | DVHINCON2 ---
Date of service: Jun 25, 2024 Referring Physician Erma Cullen NP Reason for Consultation JOSIE History of Present Illness Mrs. Palomares is a 68-year-old female with known history of advanced stage V chronic kidney disease with plans to optimally initiate kidney replacement as an outpatient. She has a maturing left upper extremity AV fistula with plans for another vascular surgery later this month. She was seen in her room patient's family was at bedside. Mrs. Palomares was in no acute distress. Current consultation requested due to elevated serum creatinine when compared to her baseline. She was also mildly hyperkalemic during admission. Past Medical History colon cancer Hypertension Stage V chronic kidney disease Allergies: Coded Allergies: Amoxicillin (Verified Allergy, Severe, 02/02/24) Cephalexin (Verified Allergy, Severe, 02/02/24) Clavulanic Acid (Verified Allergy, Severe, 02/02/24) Erythromycin (Verified Allergy, Severe, 02/02/24) Home Meds Reported Medications Gabapentin (Gabapentin) 100 Mg Cap, 100 MG PO BID for 30 Days, MG 06/25/24 Ropinirole Hydrochloride (Ropinirole Hcl) 0.25 Mg Tab, 0.25 MG PO DAILY, TAB 06/24/24 Loratadine (Loratadine) 10 Mg Tab, 10 MG PO DAILY, TAB 04/04/24 B-Complex Vitamins (Vitamin B Complex) Complex Tab, 1 TAB PO DAILY, TAB 04/04/24 Multiple Vitamin (Multivitamins) Tab, 1 TAB PO DAILY, TAB 04/04/24 Alprazolam (Alprazolam) 0.5 Mg Tab, 1 TAB PO DAILY PRN for ANXIETY 04/04/24 Ondansetron HCl (Ondansetron Hydrochloride) 4 Mg Tab, 1 TAB PO DAILY PRN for NAUSEA / VOMITING 04/04/24 Buspirone HCl (Buspirone HCl) 10 Mg Tab, 1 TAB PO BID 04/04/24 Calcitriol (Calcitriol) 0.25 Mcg Cap, 1 CAP PO DAILY 04/04/24 Levothyroxine Sodium (Levothyroxine Sodium) 75 Mcg Tab, 1 TAB PO DAILY 04/04/24 Sertraline Hcl (Sertraline Hcl) 50 Mg Tab, 1 TAB PO DAILY 04/04/24 Amlodipine Besylate (Amlodipine Besylate) 10 Mg Tab, 1 TAB PO DAILY 04/04/24 Carvedilol (Carvedilol) 6.25 Mg Tab, 1 TAB PO BID 04/04/24 Pravastatin Sodium (PRAVACHOL TABLET) 20 Mg Tb, 80 MG PO DAILY 04/04/24 Spironolactone (Spironolactone) 50 Mg Tab, 50 MG PO DAILY, TAB 04/04/24 Potassium Chloride (K-Tab) 20 Meq Tab, 1 TAB PO DAILY 04/04/24 Discontinued Scripts Levofloxacin Hemihydrate (LEVOFLOXACIN) 250 Mg Tab, 250 MG PO 1000 for 10 Days, #10 TAB Prov:MISAEL GORDON MD 04/05/24 Metronidazole (Flagyl) 500 Mg Tab, 500 MG PO TID for 10 Days, #30 TAB Prov:MISAEL GORDON MD 04/05/24 Current Medications Current Medications Medications (Trade) Dose Ordered Sig/Thanh Route PRN Reason Start Time Stop Time Status Last Admin Acetaminophen/ Hydrocodone Bitart ([place] 5/325MG Tab) 1 tab Q4HP PRN PO MODERATE PAIN (4-6 PAIN SCALE) 06/24/24 16:00 Ondansetron HCl (Zofran) 4 mg Q4HP PRN IV NAUSEA / VOMITING 06/24/24 16:00 Docusate Sodium (Colace Capsule) 100 mg BIDPRN PRN PO FOR CONSTIPATION 06/24/24 16:00 Acetaminophen (Tylenol Tablet) 650 mg Q6HP PRN PO PAIN SCALE 1-3 OR TEMP>100.4 06/24/24 16:00 Nitroglycerin (Ntrostat Sublingual) 0.4 mg Q5MINP PRN SL FOR CHEST PAIN 06/24/24 16:00 Morphine Sulfate 2 mg Q30M PRN IV FOR CHEST PAIN 06/24/24 16:00 Sodium Chloride 1,000 ml @ 100 mls/hr Q10H IV 06/24/24 16:00 06/25/24 09:32 Alprazolam (Xanax Tablet) 0.5 mg DAILY PRN PO ANXIETY 06/24/24 16:00 06/25/24 01:55 Buspirone HCl (Buspar Tablet) 10 mg BID PO 06/24/24 22:00 06/25/24 09:10 Calcitriol (Rocaltrol Capsule) 0.25 mcg DAILY PO 06/25/24 10:00 06/25/24 09:11 Loratadine (Claritin Tablet) 10 mg DAILY PO 06/25/24 10:00 06/25/24 09:13 Multivitamins (Mvi Tab) 1 tab DAILY PO 06/25/24 10:00 06/25/24 09:10 Atorvastatin Calcium (Lipitor) 20 mg HS PO 06/24/24 22:00 06/24/24 22:12 Sertraline HCl (Zoloft) 50 mg DAILY PO 06/25/24 10:00 06/25/24 09:11 Amlodipine Besylate (Norvasc Tablet) 10 mg DAILY PO 06/25/24 10:00 06/25/24 09:12 Patient Own Medication 1 tab DAILY PO 06/25/24 10:00 Carvedilol (Coreg Tablet) 6.25 mg BID PO 06/24/24 22:00 06/25/24 09:13 Levothyroxine Sodium (Synthroid Tablet) 75 mcg DAILY PO 06/25/24 10:00 06/25/24 09:10 Spironolactone (Aldactone) 50 mg DAILY PO 06/25/24 10:00 06/24/24 17:23 DC Throat Lozenges (Cepastat Lozenges) 1 bello Q2HP PRN MT FOR SORE THROAT 06/24/24 16:00 06/25/24 09:32 Guaifenesin/ Dextromethorphan (Robitussin-Dm Liquid) 10 ml Q4HP PRN PO FOR COUGH 06/24/24 16:00 06/25/24 09:27 Ipratropium [place] (Atrovent Medneb) 0.5 mg Q4HR NEB 06/24/24 18:00 06/24/24 19:17 DC Albuterol (Ventolin Medneb) 2.5 mg Q4HPRN PRN NEB SHORTNESS OF BREATH 06/24/24 16:15 Ipratropium [place] (Atrovent Medneb) 0.5 mg Q4HPRN PRN NEB SHORTNESS OF BREATH 06/24/24 19:15 Family History: FH: brain aneurysm G8 MOTHER, FH: pancreatic cancer G8 FATHER, Review of Systems denies nausea, vomiting, all other review systems were non-contributory H&P Exam Vital Signs/I&O Vital Sign Date Time Temp Pulse Resp B/P (MAP) Pulse Ox O2 Delivery O2 Flow Rate FiO2 06/25/24 11:04 98.6 90 18 141/66 95 0.0 21 98.6 06/25/24 10:00 Room Air Intake and Output 06/24/24 06/25/24 19:00 07:00 Intake Total 480 ml Output Total 500 ml Balance -20 ml Intake Oral 480 ml Output Urine Total 500 ml Physical Exam gen: nad heent: mmm lungs: CTA bilaterally cvs; no rub abd: soft, nontender ext: no edema, LUE AVF patent skin: no rash Labs/Diagnostic Data Labs/Diagnostic Data Laboratory Tests Test 06/25/24 07:22 06/24/24 19:00 06/24/24 15:51 06/24/24 13:07 Range/Units White Blood Count 3.8 #L 4.4-10.8 10^3/uL Red Blood Count 2.36 L 4.0-5.20 10^6/uL Hemoglobin 7.7 L 12.2-16.2 g/dL Hematocrit 22.7 #L 36.0-46.0 % Mean Corpuscular Volume 96.3 80.0-100.0 fL Mean Corpuscular Hemoglobin 32.8 H 28.0-32.0 pg Mean Corpuscular Hemoglobin Concent 34.0 32.0-36.0 g/dL Red Cell Distribution Width 15.0 H 11.8-14.3 % Platelet Count 209 140-450 10^3/uL Mean Platelet Volume 7.8 6.9-10.8 fL Neutrophils (%) (Auto) 67.1 37.0-80.0 % Lymphocytes (%) (Auto) 19.7 10.0-50.0 % Monocytes (%) (Auto) 12.3 H 0.0-12.0 % Eosinophils (%) (Auto) 0.5 0.0-7.0 % Basophils (%) (Auto) 0.4 0.0-2.0 % Neutrophils # (Auto) 2.5 1.6-8.6 10 ^3/uL Lymphocytes # (Auto) 0.7 0.4-5.4 10 ^3/uL Monocytes # (Auto) 0.5 0-1.3 10 ^3/uL Eosinophils # (Auto) 0 0-0.8 10 ^3/uL Basophils # (Auto) 0 0-0.2 10 ^3/uL Nucleated Red Blood Cells 0.1 % Sodium Level 142 136-145 mmol/L Potassium Level 4.3 3.5-5.1 mmol/L Chloride Level 112 H 98-107 mmol/L Carbon Dioxide Level 14 L 20-31 mmol/L Anion Gap 16 H 5-15 Blood Urea Nitrogen 66 H 9-23 mg/dL Creatinine 7.51 H 0.550-1.02 mg/dL Glomerular Filtration Rate Calc 5 >90 mL/min BUN/Creatinine Ratio 8.8 L 10.0-20.0 Serum Glucose 83 74-106 mg/dL Calcium Level 9.0 8.7-10.4 mg/dL Total Bilirubin < 0.2 L 0.2-1.0 mg/dL Aspartate Amino Transferase (AST) 32 13-40 U/L Alanine Aminotransferase (ALT) 61 H 7-40 U/L Alkaline Phosphatase 70 46-116 U/L Total Protein 5.7 5.7-8.2 g/dL Albumin 3.5 3.2-4.8 g/dL Urine Color Light-yellow Yellow Urine Clarity Turbid H Clear Urine pH 5.5 5.0-9.0 Urine Specific [place] 1.017 1.001-1.035 Urine Protein 3+ H Negative Urine Ketones Trace Negative Urine Blood Negative Negative /uL Urine Nitrite Negative Negative Urine Bilirubin Negative Negative Urine Urobilinogen Normal Negative mg/dL Urine Leukocyte Esterase Negative Negative /uL Urine RBC 1 0 - 4 /hpf Urine WBC 3 0 - 5 /hpf Urine Squamous Epithelial Cells Few <5 /hpf Urine Bacteria Few H None Seen /hpf Urine Mucus Few None Seen Urine Glucose Normal Normal mg/dL Troponin I High Sensitivity 65 *H 63 *H </=34 ng/L Test 06/24/24 11:23 06/24/24 10:40 Range/Units Influenza Type A Antigen Positive Negative Influenza Type B Antigen Negative Negative SARS-CoV-2 Antigen (Rapid) Negative NEGATIVE White Blood Count 6.2 4.4-10.8 10^3/uL Red Blood Count 2.57 L 4.0-5.20 10^6/uL Hemoglobin 8.3 L 12.2-16.2 g/dL Hematocrit 25.7 L 36.0-46.0 % Mean Corpuscular Volume 99.8 80.0-100.0 fL Mean Corpuscular Hemoglobin 32.4 H 28.0-32.0 pg Mean Corpuscular Hemoglobin Concent 32.5 32.0-36.0 g/dL Red Cell Distribution Width 15.2 H 11.8-14.3 % Platelet Count 227 140-450 10^3/uL Mean Platelet Volume 7.8 6.9-10.8 fL Neutrophils (%) (Auto) 77.5 37.0-80.0 % Lymphocytes (%) (Auto) 12.3 10.0-50.0 % Monocytes (%) (Auto) 9.4 0.0-12.0 % Eosinophils (%) (Auto) 0.5 0.0-7.0 % Basophils (%) (Auto) 0.3 0.0-2.0 % Neutrophils # (Auto) 4.8 1.6-8.6 10 ^3/uL Lymphocytes # (Auto) 0.8 0.4-5.4 10 ^3/uL Monocytes # (Auto) 0.6 0-1.3 10 ^3/uL Eosinophils # (Auto) 0 0-0.8 10 ^3/uL Basophils # (Auto) 0 0-0.2 10 ^3/uL Nucleated Red Blood Cells 0.1 % Sodium Level 138 136-145 mmol/L Potassium Level 5.9 *H 3.5-5.1 mmol/L Chloride Level 110 H 98-107 mmol/L Carbon Dioxide Level 14 L 20-31 mmol/L Anion Gap 14 5-15 Blood Urea Nitrogen 68 H 9-23 mg/dL Creatinine 7.08 H 0.550-1.02 mg/dL Glomerular Filtration Rate Calc 6 >90 mL/min BUN/Creatinine Ratio 9.6 L 10.0-20.0 Serum Glucose 83 74-106 mg/dL Calcium Level 9.5 8.7-10.4 mg/dL Troponin I High Sensitivity 67 *H </=34 ng/L Assessment IMP: !) hemodynamically mediated acute kidney injury superimposed on CKD 5 2) Hyperkalemia - improved 3) Influenza illness 4) colon cancer 5) anemia REC: - Gentle IV fluid hydration - Spirololactone held due to JOSIE and hyperkalemia - discussed plan of care from nephrology perspective with patient and patient's family - Currently without urgent indication for dialysis initiation Thank you for the consultation Plan discussed with: Patient, Spouse, Daughter, Son KATHRYN YEPEZ MD Jun 25, 2024 14:36
--- NOTE | 2024-06-25 19:29 | DVHPN2 ---
Subjective Assuming the care of the patient from today onwards. Patient is influenza A positive also has a acute kidney injury with underlying CKD . Reviewed: Care Plan Changes from previous H/P or p: No Changes Eyes: No Pain, No Vision change, No Conjunctivae inflammation, No Eyelid inflammation, No Other, No Redness ENT: No Ear pain, No Ear discharge, No Nose pain, No Nose discharge, No Nose congestion, No Mouth pain, No Mouth swelling, No Throat pain, No Throat swelling, No Other Cardiovascular: No Chest Pain, No Palpitations, No Orthopnea, No Paroxysmal Noc. Dyspnea, No Edema, No Lt Headedness, No Other Respiratory: Cough; No Dry; Shortness of breath, SOB with excertion; No Wheezing, No Hemoptysis, No Pleuritic Pain, No Sputum, No Other Gastrointestinal: No Nausea, No Vomiting, No Abdominal Pain, No Diarrhea, No Constipation, No Melena, No Hematochezia, No Other Genitourinary: No Dysuria, No Frequency, No Incontinence, No Hematuria, No Retention, No Other Musculoskeletal: No other, No neck pain, No shoulder pain, No arm pain, No back pain, No hand pain, No leg pain, No foot pain Skin: No Rash, No Lesions, No Jaundice, No Bruising, No Other Objective Vitals Vital Signs Date Time Temp Pulse Resp B/P (MAP) Pulse Ox O2 Delivery O2 Flow Rate FiO2 06/25/24 16:55 97.8 83 16 144/68 (93) 96 97.8 06/25/24 11:04 0.0 21 06/25/24 10:00 Room Air Intake/Output Intake and Output 06/25/24 07:00 Intake Total 480 ml Output Total 500 ml Balance -20 ml Intake Oral 480 ml Output Urine Total 500 ml Exam HEENT pupils are reactive Neck is supple CV is S1-S2 regular rate and rhythm Respiratory are clear GI positive bowel sound 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 Medications Current Medications Medications Dose Ordered Sig/Thanh Route Start Time Stop Time Status Last Admin Dose Admin Acetaminophen/ Hydrocodone Bitart 1 tab Q4HP PRN PO 06/24/24 16:00 Ondansetron HCl 4 mg Q4HP PRN IV 06/24/24 16:00 Docusate Sodium 100 mg BIDPRN PRN PO 06/24/24 16:00 Acetaminophen 650 mg Q6HP PRN PO 06/24/24 16:00 Nitroglycerin 0.4 mg Q5MINP PRN SL 06/24/24 16:00 Morphine Sulfate 2 mg Q30M PRN IV 06/24/24 16:00 Sodium Chloride 1,000 ml @ 100 mls/hr Q10H IV 06/24/24 16:00 06/25/24 18:06 100 MLS/HR Alprazolam 0.5 mg DAILY PRN PO 06/24/24 16:00 06/25/24 01:55 0.5 MG Buspirone HCl 10 mg BID PO 06/24/24 22:00 06/25/24 09:10 10 MG Calcitriol 0.25 mcg DAILY PO 06/25/24 10:00 06/25/24 09:11 0.25 MCG Loratadine 10 mg DAILY PO 06/25/24 10:00 06/25/24 09:13 10 MG Multivitamins 1 tab DAILY PO 06/25/24 10:00 06/25/24 09:10 1 TAB Atorvastatin Calcium 20 mg HS PO 06/24/24 22:00 06/24/24 22:12 20 MG Sertraline HCl 50 mg DAILY PO 06/25/24 10:00 06/25/24 09:11 50 MG Amlodipine Besylate 10 mg DAILY PO 06/25/24 10:00 06/25/24 09:12 10 MG Patient Own Medication 1 tab DAILY PO 06/25/24 10:00 Carvedilol 6.25 mg BID PO 06/24/24 22:00 06/25/24 09:13 6.25 MG Levothyroxine Sodium 75 mcg DAILY PO 06/25/24 10:00 06/25/24 09:10 75 MCG Throat Lozenges 1 ruth Q2HP PRN MT 06/24/24 16:00 06/25/24 18:05 1 RUTH Guaifenesin/ Dextromethorphan 10 ml Q4HP PRN PO 06/24/24 16:00 06/25/24 18:06 10 ML Albuterol 2.5 mg Q4HPRN PRN NEB 06/24/24 16:15 Ipratropium [place] 0.5 mg Q4HPRN PRN NEB 06/24/24 19:15 Oseltamivir Phosphate 75 mg Q12HR PO 06/25/24 22:00 06/30/24 21:59 Future Hold Laboratory Results Laboratory Tests 06/25/24 07:22 Chemistry Test 06/25/24 07:22 Albumin 3.5 g/dL (3.2-4.8) Calcium Level 9.0 mg/dL (8.7-10.4) Total Protein 5.7 g/dL (5.7-8.2) LFT Test 06/25/24 07:22 Alanine Aminotransferase (ALT) 61 U/L (7-40) H Alkaline Phosphatase 70 U/L (46-116) Aspartate Amino Transferase (AST) 32 U/L (13-40) Total Bilirubin < 0.2 mg/dL (0.2-1.0) L Urinalysis Test 06/24/24 19:00 Urine Color Light-yellow (Yellow) Urine Clarity Turbid (Clear) H Urine pH 5.5 (5.0-9.0) Urine Specific [place] 1.017 (1.001-1.035) Urine Protein 3+ (Negative) H Urine Ketones Trace (Negative) Urine Blood Negative /uL (Negative) Urine Nitrite Negative (Negative) Urine Bilirubin Negative (Negative) Urine Urobilinogen Normal mg/dL (Negative) Urine Leukocyte Esterase Negative /uL (Negative) Urine RBC 1 /hpf (0 - 4) Urine WBC 3 /hpf (0 - 5) Urine Squamous Epithelial Cells Few /hpf (<5) Urine Bacteria Few /hpf (None Seen) H Urine Mucus Few (None Seen) Urine Glucose Normal mg/dL (Normal) Assessment/Plan Assessment/Plan 68-year-old female with a known history of colon cancer , CKD who initially admitted to the hospital with a flu-like symptoms found to have 1. Acute kidney injury with underlying CKD 2. Hyperkalemia suspect secondary to Aldactone 3. Mildly elevated troponin suspect demand ischemia and decreased renal clearance 4. Hypertension 5. History of colon cancer 6. Influenza A positive -gentle IV hydration, Doppler isolation, nephrology consultation Plan discussed with: Patient, Spouse My Orders Orders - NHI CHIRINOS MD Procedure Category Date Status Time Oseltamivir 75mg PHA 06/25/24 In Process Capsule (Tamiflu 75mg 22:00 Date of Service: Jun 25, 2024 Billing Provider: NHI CHIRINOS MD Common Visit Codes: [id number] INP/OBS CARE(MOD), NOT BILLABLE NHI CHIRINOS MD Jun 25, 2024 19:29
[2024-06-25] MEDS ORDERED: OSELTAMIVIR 75 MG CAP PO SCH (22:00)
[2024-06-26] VITALS (10 sets, daily range): BP systolic 134–151; BP diastolic 60–71; PULSE 79–87; RESP 16–18; TEMP 97.7–98.6; O2SAT 93–95
[2024-06-26 07:37] LABS: Calcium 8.9 mg/dL (8.7-10.4); Potassium 3.6 mmol/L (3.5-5.1); Sodium 143 mmol/L (136-145)
[2024-06-26 07:38] LABS: Anion Gap 15 (5-15)
[2024-06-26 07:43] LABS: BUN/Creatinine Ratio 8.7 (10.0-20.0); Glucose 106 mg/dL (74-106)
[2024-06-26 07:44] LABS: Blood Urea Nitrogen 62 mg/dL (9-23); Carbon Dioxide 14 mmol/L (20-31); Chloride 114 mmol/L (98-107)
[2024-06-26] MEDS: VANCOMYCIN HCL 250 MG CAP PO SCH (17:24)
--- NOTE | 2024-06-26 17:58 | DVHPN2 ---
Subjective Patient is influenza A positive also has a acute kidney injury with underlying CKD . Insufficiency diff positive, diarrhea is getting better. Reviewed: Care Plan Changes from previous H/P or p: No Changes Eyes: No Pain, No Vision change, No Conjunctivae inflammation, No Eyelid inflammation, No Other, No Redness ENT: No Ear pain, No Ear discharge, No Nose pain, No Nose discharge, No Nose congestion, No Mouth pain, No Mouth swelling, No Throat pain, No Throat swelling, No Other Cardiovascular: No Chest Pain, No Palpitations, No Orthopnea, No Paroxysmal Noc. Dyspnea, No Edema, No Lt Headedness, No Other Respiratory: Cough; No Dry; Shortness of breath, SOB with excertion; No Wheezing, No Hemoptysis, No Pleuritic Pain, No Sputum, No Other Gastrointestinal: No Nausea, No Vomiting, No Abdominal Pain, No Diarrhea, No Constipation, No Melena, No Hematochezia, No Other Genitourinary: No Dysuria, No Frequency, No Incontinence, No Hematuria, No Retention, No Other Musculoskeletal: No other, No neck pain, No shoulder pain, No arm pain, No back pain, No hand pain, No leg pain, No foot pain Skin: No Rash, No Lesions, No Jaundice, No Bruising, No Other Objective Vitals Vital Signs Date Time Temp Pulse Resp B/P (MAP) Pulse Ox O2 Delivery O2 Flow Rate FiO2 06/26/24 17:00 97.7 87 18 138/66 (90) 95 97.7 06/26/24 10:00 Room Air 06/26/24 10:00 0 21 Intake/Output Intake and Output 06/26/24 07:00 Intake Total 4420 ml Output Total 1050 ml Balance 3370 ml Intake Oral 3220 ml IV Total 1200 ml Output Urine Total 600 ml Urine/Stool Mix 450 ml # Voids 4 # Bowel Movements 4 Exam HEENT pupils are reactive Neck is supple CV is S1-S2 regular rate and rhythm Respiratory are clear GI positive bowel sound 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 Medications Current Medications Medications Dose Ordered Sig/Thanh Route Start Time Stop Time Status Last Admin Dose Admin Acetaminophen/ Hydrocodone Bitart 1 tab Q4HP PRN PO 06/24/24 16:00 Ondansetron HCl 4 mg Q4HP PRN IV 06/24/24 16:00 Docusate Sodium 100 mg BIDPRN PRN PO 06/24/24 16:00 Acetaminophen 650 mg Q6HP PRN PO 06/24/24 16:00 Nitroglycerin 0.4 mg Q5MINP PRN SL 06/24/24 16:00 Morphine Sulfate 2 mg Q30M PRN IV 06/24/24 16:00 Sodium Chloride 1,000 ml @ 100 mls/hr Q10H IV 06/24/24 16:00 06/26/24 10:43 100 MLS/HR Alprazolam 0.5 mg DAILY PRN PO 06/24/24 16:00 06/26/24 02:13 0.5 MG Buspirone HCl 10 mg BID PO 06/24/24 22:00 06/26/24 10:43 10 MG Calcitriol 0.25 mcg DAILY PO 06/25/24 10:00 06/26/24 10:40 0.25 MCG Loratadine 10 mg DAILY PO 06/25/24 10:00 06/26/24 10:40 10 MG Multivitamins 1 tab DAILY PO 06/25/24 10:00 06/26/24 10:42 1 TAB Atorvastatin Calcium 20 mg HS PO 06/24/24 22:00 06/25/24 22:04 20 MG Sertraline HCl 50 mg DAILY PO 06/25/24 10:00 06/26/24 10:47 50 MG Amlodipine Besylate 10 mg DAILY PO 06/25/24 10:00 06/26/24 10:42 10 MG Patient Own Medication 1 tab DAILY PO 06/25/24 10:00 Carvedilol 6.25 mg BID PO 06/24/24 22:00 06/26/24 10:41 6.25 MG Levothyroxine Sodium 75 mcg DAILY PO 06/25/24 10:00 06/26/24 10:41 75 MCG Throat Lozenges 1 ruth Q2HP PRN MT 06/24/24 16:00 06/26/24 17:24 1 RUTH Guaifenesin/ Dextromethorphan 10 ml Q4HP PRN PO 06/24/24 16:00 06/26/24 10:40 10 ML Albuterol 2.5 mg Q4HPRN PRN NEB 06/24/24 16:15 Ipratropium [place] 0.5 mg Q4HPRN PRN NEB 06/24/24 19:15 Oseltamivir Phosphate 75 mg Q12HR PO 06/25/24 22:00 06/30/24 21:59 Hold Vancomycin HCl 250 mg Q6HR PO 06/26/24 18:00 06/26/24 17:24 250 MG Laboratory Results Laboratory Tests 06/25/24 07:22 06/26/24 06:23 Chemistry Test 06/26/24 06:23 Calcium Level 8.9 mg/dL (8.7-10.4) Urinalysis Test 06/24/24 19:00 Urine Color Light-yellow (Yellow) Urine Clarity Turbid (Clear) H Urine pH 5.5 (5.0-9.0) Urine Specific [place] 1.017 (1.001-1.035) Urine Protein 3+ (Negative) H Urine Ketones Trace (Negative) Urine Blood Negative /uL (Negative) Urine Nitrite Negative (Negative) Urine Bilirubin Negative (Negative) Urine Urobilinogen Normal mg/dL (Negative) Urine Leukocyte Esterase Negative /uL (Negative) Urine RBC 1 /hpf (0 - 4) Urine WBC 3 /hpf (0 - 5) Urine Squamous Epithelial Cells Few /hpf (<5) Urine Bacteria Few /hpf (None Seen) H Urine Mucus Few (None Seen) Urine Glucose Normal mg/dL (Normal) Microbiology Microbiology Date/Time Source Procedure Growth Status 06/25/24 12:52 Stool Clostridium difficile Toxin Assay - Final Complete Assessment/Plan Assessment/Plan 68-year-old female with a known history of colon cancer , CKD who initially admitted to the hospital with a flu-like symptoms found to have 1. Acute kidney injury with underlying CKD 2. Hyperkalemia suspect secondary to Aldactone 3. Mildly elevated troponin suspect demand ischemia and decreased renal clearance 4. Hypertension 5. History of colon cancer 6. Influenza A positive 7. C diff colitis -add vancomycin p.o. 250 mg Q 6 hours -gentle IV hydration, droplet and contact isolation, nephrology consultation appreciated Plan discussed with: Patient My Orders Orders - NHI CHIRINOS MD Procedure Category Date Status Time Vancomycin Po PHA 06/26/24 In Process (Vancomycin 18:00 * Infectious [place]- CONS 06/26/24 Transmitted [place] 14:38 Date of Service: Jun 26, 2024 Billing Provider: NHI CHIRINOS MD Common Visit Codes: [id number] INP/OBS CARE(MOD) NHI CHIRINOS MD Jun 26, 2024 17:58
--- NOTE | 2024-06-26 18:05 | DVHPN2 ---
Progress Note - Dictate Date Seen: Jun 26, 2024 Medical Necessity Reason Pt with a Central, PICC or Fol: No Subjective resting comfortably vital signs Vital Sign Date Time Temp Pulse Resp B/P (MAP) Pulse Ox O2 Delivery O2 Flow Rate FiO2 06/26/24 17:00 97.7 87 18 138/66 (90) 95 97.7 06/26/24 10:00 Room Air 06/26/24 10:00 0 21 Total Intake and Output 06/25/24 06/25/24 06/26/24 15:00 23:00 07:00 Intake Total 600 ml 3020 ml 800 ml Output Total 650 ml 400 ml Balance -50 ml 3020 ml 400 ml medications Current Medications Medications Dose Ordered Sig/Thanh Route Start Time Stop Time Status Last Admin Dose Admin Acetaminophen/ Hydrocodone Bitart 1 tab Q4HP PRN PO 06/24/24 16:00 Ondansetron HCl 4 mg Q4HP PRN IV 06/24/24 16:00 Docusate Sodium 100 mg BIDPRN PRN PO 06/24/24 16:00 Acetaminophen 650 mg Q6HP PRN PO 06/24/24 16:00 Nitroglycerin 0.4 mg Q5MINP PRN SL 06/24/24 16:00 Morphine Sulfate 2 mg Q30M PRN IV 06/24/24 16:00 Sodium Chloride 1,000 ml @ 100 mls/hr Q10H IV 06/24/24 16:00 06/26/24 10:43 100 MLS/HR Alprazolam 0.5 mg DAILY PRN PO 06/24/24 16:00 06/26/24 02:13 0.5 MG Buspirone HCl 10 mg BID PO 06/24/24 22:00 06/26/24 10:43 10 MG Calcitriol 0.25 mcg DAILY PO 06/25/24 10:00 06/26/24 10:40 0.25 MCG Loratadine 10 mg DAILY PO 06/25/24 10:00 06/26/24 10:40 10 MG Multivitamins 1 tab DAILY PO 06/25/24 10:00 06/26/24 10:42 1 TAB Atorvastatin Calcium 20 mg HS PO 06/24/24 22:00 06/25/24 22:04 20 MG Sertraline HCl 50 mg DAILY PO 06/25/24 10:00 06/26/24 10:47 50 MG Amlodipine Besylate 10 mg DAILY PO 06/25/24 10:00 06/26/24 10:42 10 MG Patient Own Medication 1 tab DAILY PO 06/25/24 10:00 Carvedilol 6.25 mg BID PO 06/24/24 22:00 06/26/24 10:41 6.25 MG Levothyroxine Sodium 75 mcg DAILY PO 06/25/24 10:00 06/26/24 10:41 75 MCG Throat Lozenges 1 ruth Q2HP PRN MT 06/24/24 16:00 06/26/24 17:24 1 RUTH Guaifenesin/ Dextromethorphan 10 ml Q4HP PRN PO 06/24/24 16:00 06/26/24 10:40 10 ML Albuterol 2.5 mg Q4HPRN PRN NEB 06/24/24 16:15 Ipratropium [place] 0.5 mg Q4HPRN PRN NEB 06/24/24 19:15 Oseltamivir Phosphate 75 mg Q12HR PO 06/25/24 22:00 06/30/24 21:59 Hold Vancomycin HCl 250 mg Q6HR PO 06/26/24 18:00 06/26/24 17:24 250 MG objective gen: nad lungs: cta cvs: no rub ext: no edema laboratory and microbiology Laboratory Tests 06/26/24 06:23 06/25/24 07:22 Test 06/26/24 06:23 Range/Units Serum Glucose 106 74-106 mg/dL Assessment/Plan IMP: !) hemodynamically mediated acute kidney injury superimposed on CKD 5 2) Hyperkalemia - improved 3) Influenza illness 4) colon cancer 5) anemia REC: - will continue with 1/2 NS - without urgent indication for dialysis - 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
--- NOTE | 2024-06-26 18:27 | DVHINCON2 ---
Date of service: Jun 26, [address] Gee History of Present Illness This is a 68-year-old female with past medical history of hypertension who complained of shortness of breath. Patient states she has been having flu like symptoms for about 4 days with headache, earache, cough, throat pain, and foster rtness of breath. Her symptoms have been worsening causing her to come to the hospital. Patient's entire family has been sick for the last week. Patient states that she sees a information assurance down is Carlos Mckeon who she has been working with for her kidney failure. She has begun the process of having a fistula created on her left forearm. She has a final surgery Scheduled for Decem and will be starting hemodialysis later this month Past Medical History Cardiovascular: HTN Heme/Onc: Cancer (colon) Renal/: Chronic renal insuff Past Surgical History Past Surgical History: Other (colon resection) Family History: FH: brain aneurysm G8 MOTHER, FH: pancreatic cancer G8 FATHER, Family History Lives: with Family Domestic Violence: Neg Social History Smoke: No ALCOHOL: none Drugs: None Allergies: Coded Allergies: Amoxicillin (Verified Allergy, Severe, 02/02/24) Cephalexin (Verified Allergy, Severe, 02/02/24) Clavulanic Acid (Verified Allergy, Severe, 02/02/24) Erythromycin (Verified Allergy, Severe, 02/02/24) Home Meds Reported Medications Gabapentin (Gabapentin) 100 Mg Cap, 100 MG PO BID for 30 Days, MG 06/25/24 Ropinirole Hydrochloride (Ropinirole Hcl) 0.25 Mg Tab, 0.25 MG PO DAILY, TAB 06/24/24 Loratadine (Loratadine) 10 Mg Tab, 10 MG PO DAILY, TAB 04/04/24 B-Complex Vitamins (Vitamin B Complex) Complex Tab, 1 TAB PO DAILY, TAB 04/04/24 Multiple Vitamin (Multivitamins) Tab, 1 TAB PO DAILY, TAB 04/04/24 Alprazolam (Alprazolam) 0.5 Mg Tab, 1 TAB PO DAILY PRN for ANXIETY 04/04/24 Ondansetron HCl (Ondansetron Hydrochloride) 4 Mg Tab, 1 TAB PO DAILY PRN for NAUSEA / VOMITING 04/04/24 Buspirone HCl (Buspirone HCl) 10 Mg Tab, 1 TAB PO BID 04/04/24 Calcitriol (Calcitriol) 0.25 Mcg Cap, 1 CAP PO DAILY 04/04/24 Levothyroxine Sodium (Levothyroxine Sodium) 75 Mcg Tab, 1 TAB PO DAILY 04/04/24 Sertraline Hcl (Sertraline Hcl) 50 Mg Tab, 1 TAB PO DAILY 04/04/24 Amlodipine Besylate (Amlodipine Besylate) 10 Mg Tab, 1 TAB PO DAILY 04/04/24 Carvedilol (Carvedilol) 6.25 Mg Tab, 1 TAB PO BID 04/04/24 Pravastatin Sodium (PRAVACHOL TABLET) 20 Mg Tb, 80 MG PO DAILY 04/04/24 Spironolactone (Spironolactone) 50 Mg Tab, 50 MG PO DAILY, TAB 04/04/24 Potassium Chloride (K-Tab) 20 Meq Tab, 1 TAB PO DAILY 04/04/24 Discontinued Scripts Levofloxacin Hemihydrate (LEVOFLOXACIN) 250 Mg Tab, 250 MG PO 1000 for 10 Days, #10 TAB Prov:MISAEL GORDON MD 04/05/24 Metronidazole (Flagyl) 500 Mg Tab, 500 MG PO TID for 10 Days, #30 TAB Prov:MISAEL GORDON MD 04/05/24 Current Medications Current Medications Medications (Trade) Dose Ordered Sig/Thanh Route PRN Reason Start Time Stop Time Status Last Admin Oseltamivir Phosphate (Tamiflu 75MG Capsule) 75 mg Q12HR PO 06/25/24 22:00 06/30/24 21:59 Hold Vancomycin HCl (Vancomycin Hydrochloride) 250 mg Q6HR PO 06/26/24 18:00 06/26/24 17:24 Sodium Chloride 1,000 ml @ 100 mls/hr Q10H IV 06/26/24 18:15 Review of Systems Constitutional: Yes: Weakness, Malaise, Other (headache and earache); No: Fever, Chills, Sweats Eyes: No: Pain, Vision change, Conjunctivae inflammation, Eyelid inflammation, Other, Redness ENT: No: Ear pain, Ear discharge, Nose pain, Nose discharge, Nose congestion, Mouth pain, Mouth swelling, Throat pain, Throat swelling, Other Respiratory: Cough, Shortness of breath, SOB with excertion; No: Dry, Wheezing, Hemoptysis, Pleuritic Pain, Sputum, Wheezing, Other Cardiovascular: No: Chest Pain, Palpitations, Orthopnea, Paroxysmal Noc. Dyspnea, Edema, Lt Headedness, Other Gastrointestinal: No: Nausea, Vomiting, Abdominal Pain, Diarrhea, Constipation, Melena, Hematochezia, Other Genitourinary: No Dysuria, No Frequency, No Incontinence, No Hematuria, No Retention, No Other Musculoskeletal: No: other, neck pain, shoulder pain, arm pain, back pain, hand pain, leg pain, foot pain Skin: No: Rash, Lesions, Jaundice, Bruising, Other Neurological: No: Weakness, Numbness, Incoordination, Change in speech, Confusion, Seizures, Other Vital Signs Vital Signs Date Time Temp Pulse Resp B/P (MAP) Pulse Ox O2 Delivery O2 Flow Rate FiO2 06/26/24 17:00 97.7 87 18 138/66 (90) 95 97.7 06/26/24 10:00 Room Air 06/26/24 10:00 0 21 Physical Exam General Appearance: Alert, Oriented X3, Cooperative, mild distress HEENT: Atraumatic, PERRLA Respiratory: Other (Diminished breath sounds) Cardiovascular: Regular rate, Normal S1, Normal S2 Abdominal: Normal bowel sounds, Soft, No tenderness Extremities: No clubbing, No cyanosis, No edema, Normal pulses, No tenderness/swelling, Other (Left arm fistula) Skin: No rashes, No breakdown, No significant lesion Neuro: Normal gait, Normal speech, Strength at 5/5 X4 ext Psych/Mental Status: Mental status NL, Mood NL Labs/Diagnostic Data Labs Test 06/26/24 06:23 06/25/24 07:22 06/24/24 19:00 06/24/24 15:51 Range/Units Sodium Level 143 136-145 mmol/L Potassium Level 3.6 3.5-5.1 mmol/L Chloride Level 114 H 98-107 mmol/L Carbon Dioxide Level 14 L 20-31 mmol/L Anion Gap 15 5-15 Blood Urea Nitrogen 62 H 9-23 mg/dL Creatinine 7.09 H 0.550-1.02 mg/dL Glomerular Filtration Rate Calc 6 >90 mL/min BUN/Creatinine Ratio 8.7 L 10.0-20.0 Serum Glucose 106 74-106 mg/dL Calcium Level 8.9 8.7-10.4 mg/dL White Blood Count 3.8 #L 4.4-10.8 10^3/uL Red Blood Count 2.36 L 4.0-5.20 10^6/uL Hemoglobin 7.7 L 12.2-16.2 g/dL Hematocrit 22.7 #L 36.0-46.0 % Mean Corpuscular Volume 96.3 80.0-100.0 fL Mean Corpuscular Hemoglobin 32.8 H 28.0-32.0 pg Mean Corpuscular Hemoglobin Concent 34.0 32.0-36.0 g/dL Red Cell Distribution Width 15.0 H 11.8-14.3 % Platelet Count 209 140-450 10^3/uL Mean Platelet Volume 7.8 6.9-10.8 fL Neutrophils (%) (Auto) 67.1 37.0-80.0 % Lymphocytes (%) (Auto) 19.7 10.0-50.0 % Monocytes (%) (Auto) 12.3 H 0.0-12.0 % Eosinophils (%) (Auto) 0.5 0.0-7.0 % Basophils (%) (Auto) 0.4 0.0-2.0 % Neutrophils # (Auto) 2.5 1.6-8.6 10 ^3/uL Lymphocytes # (Auto) 0.7 0.4-5.4 10 ^3/uL Monocytes # (Auto) 0.5 0-1.3 10 ^3/uL Eosinophils # (Auto) 0 0-0.8 10 ^3/uL Basophils # (Auto) 0 0-0.2 10 ^3/uL Nucleated Red Blood Cells 0.1 % Total Bilirubin < 0.2 L 0.2-1.0 mg/dL Aspartate Amino Transferase (AST) 32 13-40 U/L Alanine Aminotransferase (ALT) 61 H 7-40 U/L Alkaline Phosphatase 70 46-116 U/L Total Protein 5.7 5.7-8.2 g/dL Albumin 3.5 3.2-4.8 g/dL Urine Color Light-yellow Yellow Urine Clarity Turbid H Clear Urine pH 5.5 5.0-9.0 Urine Specific [place] 1.017 1.001-1.035 Urine Protein 3+ H Negative Urine Ketones Trace Negative Urine Blood Negative Negative /uL Urine Nitrite Negative Negative Urine Bilirubin Negative Negative Urine Urobilinogen Normal Negative mg/dL Urine Leukocyte Esterase Negative Negative /uL Urine RBC 1 0 - 4 /hpf Urine WBC 3 0 - 5 /hpf Urine Squamous Epithelial Cells Few <5 /hpf Urine Bacteria Few H None Seen /hpf Urine Mucus Few None Seen Urine Glucose Normal Normal mg/dL Troponin I High Sensitivity 65 *H </=34 ng/L Test 06/24/24 11:23 Range/Units Influenza Type A Antigen Positive Negative Influenza Type B Antigen Negative Negative SARS-CoV-2 Antigen (Rapid) Negative NEGATIVE Microbiology Date/Time Source Procedure Growth Status 06/25/24 12:52 Stool Clostridium difficile Toxin Assay - Final Complete Assessment A 68 yo F with Influenza A C diff diarrhea JOSIE on CKD electrolyte imbalance Recommendations gentle IV hydration po vancomycin 125 q6h not a candidate for Tamiflu due to low GFR thank you for consult Plan discussed with: LAILA Jimenez MD Jun 26, 2024 18:27
[2024-06-26] MEDS: SOD CHL 0.45% 1,000 ML IV SCH (18:47)
[2024-06-27] VITALS (8 sets, daily range): BP systolic 137–160; BP diastolic 60–75; PULSE 75–99; RESP 18; TEMP 97.5–98.6; O2SAT 92–98
--- NOTE | 2024-06-27 05:47 | ECG ---
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
[2024-06-27] MEDS: SODIUM BICARBONATE 650 MG TAB PO SCH (13:05)
[2024-06-27] MEDS: SODIUM BICARB 8.4% 50Meq/50ml SYR Vial IV ONE (13:05)
--- NOTE | 2024-06-27 15:30 | DVHPN2 ---
Progress Note Date Seen: Jun 27, 2024 Medical Necessity Reason Pt with a Central, PICC or Fol: No Subjective Patient reports: No new complaints Review of Systems: HEENT:Normal, CVS:Normal, RESPIRATORY:Abnormal, GI:Abnormal, :Normal, MSK:Normal, NEURO:Normal Objective vital signs Vital Sign Date Time Temp Pulse Resp B/P (MAP) Pulse Ox O2 Delivery O2 Flow Rate FiO2 06/27/24 10:31 86 160/64 06/27/24 09:35 96 Nasal Cannula 2.0 06/27/24 09:35 28 06/27/24 09:00 97.5 18 97.5 Total Intake and Output 06/26/24 06/26/24 06/27/24 15:00 23:00 07:00 Intake Total 480 ml 2100 ml 1300 ml Output Total 400 ml Balance 480 ml 1700 ml 1300 ml medications Current Medications Medications Dose Ordered Sig/Thanh Route Start Time Stop Time Status Last Admin Dose Admin Acetaminophen/ Hydrocodone Bitart 1 tab Q4HP PRN PO 06/24/24 16:00 Ondansetron HCl 4 mg Q4HP PRN IV 06/24/24 16:00 Docusate Sodium 100 mg BIDPRN PRN PO 06/24/24 16:00 Acetaminophen 650 mg Q6HP PRN PO 06/24/24 16:00 Nitroglycerin 0.4 mg Q5MINP PRN SL 06/24/24 16:00 Morphine Sulfate 2 mg Q30M PRN IV 06/24/24 16:00 Alprazolam 0.5 mg DAILY PRN PO 06/24/24 16:00 06/27/24 00:07 0.5 MG Buspirone HCl 10 mg BID PO 06/24/24 22:00 06/27/24 10:29 10 MG Calcitriol 0.25 mcg DAILY PO 06/25/24 10:00 06/27/24 10:29 0.25 MCG Loratadine 10 mg DAILY PO 06/25/24 10:00 06/27/24 10:31 10 MG Multivitamins 1 tab DAILY PO 06/25/24 10:00 06/27/24 10:30 1 TAB Atorvastatin Calcium 20 mg HS PO 06/24/24 22:00 06/26/24 21:30 20 MG Sertraline HCl 50 mg DAILY PO 06/25/24 10:00 06/27/24 10:29 50 MG Amlodipine Besylate 10 mg DAILY PO 06/25/24 10:00 06/27/24 10:30 10 MG Patient Own Medication 1 tab DAILY PO 06/25/24 10:00 Carvedilol 6.25 mg BID PO 06/24/24 22:00 06/27/24 10:31 6.25 MG Levothyroxine Sodium 75 mcg DAILY PO 06/25/24 10:00 06/27/24 10:29 75 MCG Throat Lozenges 1 ruth Q2HP PRN MT 06/24/24 16:00 06/27/24 05:47 1 RUTH Guaifenesin/ Dextromethorphan 10 ml Q4HP PRN PO 06/24/24 16:00 06/26/24 10:40 10 ML Albuterol 2.5 mg Q4HPRN PRN NEB 06/24/24 16:15 Cancel Ipratropium [place] 0.5 mg Q4HPRN PRN NEB 06/24/24 19:15 Cancel Oseltamivir Phosphate 75 mg Q12HR PO 06/25/24 22:00 06/30/24 21:59 Hold Vancomycin HCl 250 mg Q6HR PO 06/26/24 18:00 06/27/24 13:05 250 MG Sodium Bicarbonate 650 mg QID PO 06/27/24 12:00 06/27/24 13:05 650 MG laboratory and microbiology Laboratory Tests 06/26/24 06:23 06/25/24 07:22 Test 06/26/24 06:23 Range/Units Serum Glucose 106 74-106 mg/dL Microbiology Date/Time Source Procedure Growth Status 06/25/24 12:52 Stool Clostridium difficile Toxin Assay - Final Complete Problem List/Assessment/Plan Problem List/Assessment/Plan IMP: !) hemodynamically mediated acute kidney injury superimposed on CKD 5 2) Hyperkalemia - improved 3) Influenza illness 4) colon cancer 5) anemia recs dc ivf has avf / need vasc sx procedure as outpt per pt monitor for spare hand needs daily Plan discussed with: Patient My Orders My Orders Orders - URSZULA RAI MD Procedure Category Date Status Time Sodium Bicarb Tab PHA 06/27/24 In Process 12:00 Communication Order ORDERS 06/27/24 Transmitted 10:54 URSZULA RAI MD Jun 27, 2024 15:30
--- NOTE | 2024-06-27 16:23 | DVHPN2 ---
Subjective Patient is influenza A positive also has a acute kidney injury with underlying CKD . Insufficiency diff positive, diarrhea is getting better. Reviewed: Care Plan Changes from previous H/P or p: No Changes Eyes: No Pain, No Vision change, No Conjunctivae inflammation, No Eyelid inflammation, No Other, No Redness ENT: No Ear pain, No Ear discharge, No Nose pain, No Nose discharge, No Nose congestion, No Mouth pain, No Mouth swelling, No Throat pain, No Throat swelling, No Other Cardiovascular: No Chest Pain, No Palpitations, No Orthopnea, No Paroxysmal Noc. Dyspnea, No Edema, No Lt Headedness, No Other Respiratory: Cough; No Dry; Shortness of breath, SOB with excertion; No Wheezing, No Hemoptysis, No Pleuritic Pain, No Sputum, No Other Gastrointestinal: No Nausea, No Vomiting, No Abdominal Pain, No Diarrhea, No Constipation, No Melena, No Hematochezia, No Other Genitourinary: No Dysuria, No Frequency, No Incontinence, No Hematuria, No Retention, No Other Musculoskeletal: No other, No neck pain, No shoulder pain, No arm pain, No back pain, No hand pain, No leg pain, No foot pain Skin: No Rash, No Lesions, No Jaundice, No Bruising, No Other Objective Vitals Vital Signs Date Time Temp Pulse Resp B/P (MAP) Pulse Ox O2 Delivery O2 Flow Rate FiO2 06/27/24 10:31 86 160/64 06/27/24 09:35 96 Nasal Cannula 2.0 06/27/24 09:35 28 06/27/24 09:00 97.5 18 97.5 Intake/Output Intake and Output 06/27/24 07:00 Intake Total 3880 ml Output Total 400 ml Balance 3480 ml Intake Oral 2340 ml IV Total 1540 ml Output Urine Total 400 ml # Voids 4 # Bowel Movements 1 Exam HEENT pupils are reactive Neck is supple CV is S1-S2 regular rate and rhythm Respiratory are clear GI positive bowel sound Extremity 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 Medications Current Medications Medications Dose Ordered Sig/Thanh Route Start Time Stop Time Status Last Admin Dose Admin Acetaminophen/ Hydrocodone Bitart 1 tab Q4HP PRN PO 06/24/24 16:00 Ondansetron HCl 4 mg Q4HP PRN IV 06/24/24 16:00 Docusate Sodium 100 mg BIDPRN PRN PO 06/24/24 16:00 Acetaminophen 650 mg Q6HP PRN PO 06/24/24 16:00 Nitroglycerin 0.4 mg Q5MINP PRN SL 06/24/24 16:00 Morphine Sulfate 2 mg Q30M PRN IV 06/24/24 16:00 Alprazolam 0.5 mg DAILY PRN PO 06/24/24 16:00 06/27/24 00:07 0.5 MG Buspirone HCl 10 mg BID PO 06/24/24 22:00 06/27/24 10:29 10 MG Calcitriol 0.25 mcg DAILY PO 06/25/24 10:00 06/27/24 10:29 0.25 MCG Loratadine 10 mg DAILY PO 06/25/24 10:00 06/27/24 10:31 10 MG Multivitamins 1 tab DAILY PO 06/25/24 10:00 06/27/24 10:30 1 TAB Atorvastatin Calcium 20 mg HS PO 06/24/24 22:00 06/26/24 21:30 20 MG Sertraline HCl 50 mg DAILY PO 06/25/24 10:00 06/27/24 10:29 50 MG Amlodipine Besylate 10 mg DAILY PO 06/25/24 10:00 06/27/24 10:30 10 MG Patient Own Medication 1 tab DAILY PO 06/25/24 10:00 Carvedilol 6.25 mg BID PO 06/24/24 22:00 06/27/24 10:31 6.25 MG Levothyroxine Sodium 75 mcg DAILY PO 06/25/24 10:00 06/27/24 10:29 75 MCG Throat Lozenges 1 ruth Q2HP PRN MT 06/24/24 16:00 06/27/24 05:47 1 RUTH Guaifenesin/ Dextromethorphan 10 ml Q4HP PRN PO 06/24/24 16:00 06/26/24 10:40 10 ML Albuterol 2.5 mg Q4HPRN PRN NEB 06/24/24 16:15 Cancel Ipratropium [place] 0.5 mg Q4HPRN PRN NEB 06/24/24 19:15 Cancel Oseltamivir Phosphate 75 mg Q12HR PO 06/25/24 22:00 06/30/24 21:59 Hold Vancomycin HCl 250 mg Q6HR PO 06/26/24 18:00 06/27/24 13:05 250 MG Sodium Bicarbonate 650 mg QID PO 06/27/24 12:00 06/27/24 13:05 650 MG Laboratory Results Laboratory Tests 06/25/24 07:22 06/26/24 06:23 Urinalysis Test 06/24/24 19:00 Urine Color Light-yellow (Yellow) Urine Clarity Turbid (Clear) H Urine pH 5.5 (5.0-9.0) Urine Specific [place] 1.017 (1.001-1.035) Urine Protein 3+ (Negative) H Urine Ketones Trace (Negative) Urine Blood Negative /uL (Negative) Urine Nitrite Negative (Negative) Urine Bilirubin Negative (Negative) Urine Urobilinogen Normal mg/dL (Negative) Urine Leukocyte Esterase Negative /uL (Negative) Urine RBC 1 /hpf (0 - 4) Urine WBC 3 /hpf (0 - 5) Urine Squamous Epithelial Cells Few /hpf (<5) Urine Bacteria Few /hpf (None Seen) H Urine Mucus Few (None Seen) Urine Glucose Normal mg/dL (Normal) Microbiology Microbiology Date/Time Source Procedure Growth Status 06/25/24 12:52 Stool Clostridium difficile Toxin Assay - Final Complete Assessment/Plan Assessment/Plan 68-year-old female with a known history of colon cancer , CKD who initially admitted to the hospital with a flu-like symptoms found to have 1. Acute kidney injury with underlying CKD 2. Hyperkalemia suspect secondary to Aldactone 3. Mildly elevated troponin suspect demand ischemia and decreased renal clearance 4. Hypertension 5. History of colon cancer 6. Influenza A positive 7. C diff colitis 8. METABOLIC ACIDOSIS -vancomycin p.o. 250 mg Q 6 hours -gentle IV hydration, droplet and contact isolation, nephrology consultation appreciated Plan discussed with: Patient Date of Service: Jun 27, 2024 Billing Provider: NHI CHIRINOS MD Common Visit Codes: NOT BILLABLE NHI CHIRINOS MD Jun 27, 2024 16:23
--- NOTE | 2024-06-27 23:36 | DVHPN2 ---
Progress Note - Dictate Date Seen: Jun 27, 2024 Medical Necessity Reason Pt with a Central, PICC or Fol: No Subjective Patient is influenza A positive also has a acute kidney injury with underlying CKD . Insufficiency diff positive, diarrhea is getting better. vital signs Vital Sign Date Time Temp Pulse Resp B/P (MAP) Pulse Ox O2 Delivery O2 Flow Rate FiO2 06/27/24 22:04 95 157/75 06/27/24 21:00 97.9 18 98 97.9 06/27/24 20:00 Nasal Cannula* 2 28 Total Intake and Output 06/26/24 06/26/24 06/27/24 15:00 23:00 07:00 Intake Total 480 ml 2100 ml 1300 ml Output Total 400 ml Balance 480 ml 1700 ml 1300 ml medications Current Medications Medications Dose Ordered Sig/Thanh Route Start Time Stop Time Status Last Admin Dose Admin Acetaminophen/ Hydrocodone Bitart 1 tab Q4HP PRN PO 06/24/24 16:00 Ondansetron HCl 4 mg Q4HP PRN IV 06/24/24 16:00 Docusate Sodium 100 mg BIDPRN PRN PO 06/24/24 16:00 Acetaminophen 650 mg Q6HP PRN PO 06/24/24 16:00 Nitroglycerin 0.4 mg Q5MINP PRN SL 06/24/24 16:00 Morphine Sulfate 2 mg Q30M PRN IV 06/24/24 16:00 Alprazolam 0.5 mg DAILY PRN PO 06/24/24 16:00 06/27/24 00:07 0.5 MG Buspirone HCl 10 mg BID PO 06/24/24 22:00 06/27/24 21:53 10 MG Calcitriol 0.25 mcg DAILY PO 06/25/24 10:00 06/27/24 10:29 0.25 MCG Loratadine 10 mg DAILY PO 06/25/24 10:00 06/27/24 10:31 10 MG Multivitamins 1 tab DAILY PO 06/25/24 10:00 06/27/24 10:30 1 TAB Atorvastatin Calcium 20 mg HS PO 06/24/24 22:00 06/27/24 21:53 20 MG Sertraline HCl 50 mg DAILY PO 06/25/24 10:00 06/27/24 10:29 50 MG Amlodipine Besylate 10 mg DAILY PO 06/25/24 10:00 06/27/24 10:30 10 MG Patient Own Medication 1 tab DAILY PO 06/25/24 10:00 Carvedilol 6.25 mg BID PO 06/24/24 22:00 06/27/24 22:04 6.25 MG Levothyroxine Sodium 75 mcg DAILY PO 06/25/24 10:00 06/27/24 10:29 75 MCG Throat Lozenges 1 ruth Q2HP PRN MT 06/24/24 16:00 06/27/24 18:39 1 RUTH Guaifenesin/ Dextromethorphan 10 ml Q4HP PRN PO 06/24/24 16:00 06/26/24 10:40 10 ML Albuterol 2.5 mg Q4HPRN PRN NEB 06/24/24 16:15 Cancel Ipratropium [place] 0.5 mg Q4HPRN PRN NEB 06/24/24 19:15 Cancel Oseltamivir Phosphate 75 mg Q12HR PO 06/25/24 22:00 06/30/24 21:59 Hold Vancomycin HCl 250 mg Q6HR PO 06/26/24 18:00 06/27/24 17:23 250 MG Sodium Bicarbonate 650 mg QID PO 06/27/24 12:00 06/27/24 21:53 650 MG laboratory and microbiology Laboratory Tests 06/26/24 06:23 06/25/24 07:22 Test 06/26/24 06:23 Range/Units Serum Glucose 106 74-106 mg/dL Assessment/Plan A 68 yo F with Influenza A C diff diarrhea JOSIE on CKD electrolyte imbalance recommendations gentle IV hydration po vancomycin 125 q6h not a candidate for Tamiflu due to low GFR thank you for consult LAILA CUMMINS MD Jun 27, 2024 23:36
[2024-06-28] VITALS (8 sets, daily range): BP systolic 153–157; BP diastolic 65–72; PULSE 58–83; RESP 16–19; TEMP 97.2–98.1; O2SAT 93–97
[2024-06-28 15:11] LABS: Sodium 145 mmol/L (136-145)
[2024-06-28 15:12] LABS: Anion Gap 15 (5-15); Calcium 8.9 mg/dL (8.7-10.4); Carbon Dioxide 20 mmol/L (20-31)
[2024-06-28 15:17] LABS: Glucose 97 mg/dL (74-106)
[2024-06-28 15:18] LABS: BUN/Creatinine Ratio 8.1 (10.0-20.0); Blood Urea Nitrogen 56 mg/dL (9-23); Chloride 110 mmol/L (98-107); Potassium 2.7 mmol/L (3.5-5.1)
[2024-06-28] MEDS: POTASSIUM CHL 20 Meq TABLET PO ONE (17:01)
--- NOTE | 2024-06-28 17:12 | DVHPN2 ---
Progress Note Date Seen: Jun 28, 2024 Medical Necessity Reason Pt with a Central, PICC or Fol: No Subjective Patient reports: No new complaints, Feels better Review of Systems: HEENT:Normal, CVS:Normal, RESPIRATORY:Normal, GI:Normal, :Normal, MSK:Normal, NEURO:Normal Objective vital signs Vital Sign Date Time Temp Pulse Resp B/P (MAP) Pulse Ox O2 Delivery O2 Flow Rate FiO2 06/28/24 13:00 97.8 76 18 153/68 (96) 97 97.8 06/28/24 11:45 Room Air* 0 21 Total Intake and Output 06/27/24 06/27/24 06/28/24 15:00 23:00 07:00 Intake Total 620 ml 1380 ml 700 ml Output Total 900 ml 600 ml Balance 620 ml 480 ml 100 ml medications Current Medications Medications Dose Ordered Sig/Thanh Route Start Time Stop Time Status Last Admin Dose Admin Acetaminophen/ Hydrocodone Bitart 1 tab Q4HP PRN PO 06/24/24 16:00 Ondansetron HCl 4 mg Q4HP PRN IV 06/24/24 16:00 Docusate Sodium 100 mg BIDPRN PRN PO 06/24/24 16:00 Acetaminophen 650 mg Q6HP PRN PO 06/24/24 16:00 Nitroglycerin 0.4 mg Q5MINP PRN SL 06/24/24 16:00 Morphine Sulfate 2 mg Q30M PRN IV 06/24/24 16:00 Alprazolam 0.5 mg DAILY PRN PO 06/24/24 16:00 06/28/24 00:43 0.5 MG Buspirone HCl 10 mg BID PO 06/24/24 22:00 06/28/24 09:57 10 MG Calcitriol 0.25 mcg DAILY PO 06/25/24 10:00 06/28/24 09:58 0.25 MCG Loratadine 10 mg DAILY PO 06/25/24 10:00 06/28/24 09:57 10 MG Multivitamins 1 tab DAILY PO 06/25/24 10:00 06/28/24 09:58 1 TAB Atorvastatin Calcium 20 mg HS PO 06/24/24 22:00 06/27/24 21:53 20 MG Sertraline HCl 50 mg DAILY PO 06/25/24 10:00 06/28/24 09:58 50 MG Amlodipine Besylate 10 mg DAILY PO 06/25/24 10:00 06/28/24 09:58 10 MG Patient Own Medication 1 tab DAILY PO 06/25/24 10:00 Carvedilol 6.25 mg BID PO 06/24/24 22:00 06/28/24 09:58 6.25 MG Levothyroxine Sodium 75 mcg DAILY PO 06/25/24 10:00 06/28/24 09:58 75 MCG Throat Lozenges 1 ruth Q2HP PRN MT 06/24/24 16:00 06/27/24 18:39 1 RUTH Guaifenesin/ Dextromethorphan 10 ml Q4HP PRN PO 06/24/24 16:00 06/26/24 10:40 10 ML Albuterol 2.5 mg Q4HPRN PRN NEB 06/24/24 16:15 Cancel Ipratropium [place] 0.5 mg Q4HPRN PRN NEB 06/24/24 19:15 Cancel Oseltamivir Phosphate 75 mg Q12HR PO 06/25/24 22:00 06/30/24 21:59 Hold Vancomycin HCl 250 mg Q6HR PO 06/26/24 18:00 06/28/24 12:57 250 MG Sodium Bicarbonate 650 mg QID PO 06/27/24 12:00 06/28/24 12:57 650 MG laboratory and microbiology Laboratory Tests 06/28/24 14:50 06/25/24 07:22 Test 06/28/24 14:50 Range/Units Serum Glucose 97 74-106 mg/dL Microbiology Date/Time Source Procedure Growth Status 06/25/24 12:52 Stool Clostridium difficile Toxin Assay - Final Complete Problem List/Assessment/Plan Problem List/Assessment/Plan IMP: 1> hemodynamically mediated acute kidney injury superimposed on CKD 5 2) Hypokalemia 3) Influenza illness 4) colon cancer 5) anemia recs dc ivf has avf / need vasc sx procedure as outpt per pt kcl replace bicarb as ordered Plan discussed with: Patient URSZULA RAI MD Jun 28, 2024 17:12
[2024-06-28] MEDS ORDERED: VANC250C4 PO (17:15)
[2024-06-28] MEDS ORDERED: SODI650T PO (17:16)
[2024-06-28] MEDS ORDERED: CARV6.2517 PO (17:16)
--- NOTE | 2024-06-28 17:19 | DVHDS2 ---
Discharge Summary Date of Admission Jun 24, 2024 at 15:46 Date of Discharge: Jun 28, 2024 Labs/Diagnostic Data: Laboratory Results Test 06/28/24 14:50 06/25/24 07:22 06/24/24 19:00 06/24/24 15:51 Sodium Level 145 mmol/L (136-145) Potassium Level 2.7 mmol/L (3.5-5.1) Chloride Level 110 mmol/L (98-107) Carbon Dioxide Level 20 mmol/L (20-31) Anion Gap 15 (5-15) Blood Urea Nitrogen 56 mg/dL (9-23) Creatinine 6.91 mg/dL (0.550-1.02) Glomerular Filtration Rate Calc 6 mL/min (>90) BUN/Creatinine Ratio 8.1 (10.0-20.0) Serum Glucose 97 mg/dL (74-106) Calcium Level 8.9 mg/dL (8.7-10.4) White Blood Count 3.8 10^3/uL (4.4-10.8) Red Blood Count 2.36 10^6/uL (4.0-5.20) Hemoglobin 7.7 g/dL (12.2-16.2) Hematocrit 22.7 % (36.0-46.0) Mean Corpuscular Volume 96.3 fL (80.0-100.0) Mean Corpuscular Hemoglobin 32.8 pg (28.0-32.0) Mean Corpuscular Hemoglobin Concent 34.0 g/dL (32.0-36.0) Red Cell Distribution Width 15.0 % (11.8-14.3) Platelet Count 209 10^3/uL (140-450) Mean Platelet Volume 7.8 fL (6.9-10.8) Neutrophils (%) (Auto) 67.1 % (37.0-80.0) Lymphocytes (%) (Auto) 19.7 % (10.0-50.0) Monocytes (%) (Auto) 12.3 % (0.0-12.0) Eosinophils (%) (Auto) 0.5 % (0.0-7.0) Basophils (%) (Auto) 0.4 % (0.0-2.0) Neutrophils # (Auto) 2.5 10 ^3/uL (1.6-8.6) Lymphocytes # (Auto) 0.7 10 ^3/uL (0.4-5.4) Monocytes # (Auto) 0.5 10 ^3/uL (0-1.3) Eosinophils # (Auto) 0 10 ^3/uL (0-0.8) Basophils # (Auto) 0 10 ^3/uL (0-0.2) Nucleated Red Blood Cells 0.1 % Total Bilirubin < 0.2 mg/dL (0.2-1.0) Aspartate Amino Transferase (AST) 32 U/L (13-40) Alanine Aminotransferase (ALT) 61 U/L (7-40) Alkaline Phosphatase 70 U/L (46-116) Total Protein 5.7 g/dL (5.7-8.2) Albumin 3.5 g/dL (3.2-4.8) Hepatitis B Surface Antigen Negative (Negative) Urine Color Light-yellow (Yellow) Urine Clarity Turbid (Clear) Urine pH 5.5 (5.0-9.0) Urine Specific [place] 1.017 (1.001-1.035) Urine Protein 3+ (Negative) Urine Ketones Trace (Negative) Urine Blood Negative /uL (Negative) Urine Nitrite Negative (Negative) Urine Bilirubin Negative (Negative) Urine Urobilinogen Normal mg/dL (Negative) Urine Leukocyte Esterase Negative /uL (Negative) Urine RBC 1 /hpf (0 - 4) Urine WBC 3 /hpf (0 - 5) Urine Squamous Epithelial Cells Few /hpf (<5) Urine Bacteria Few /hpf (None Seen) Urine Mucus Few (None Seen) Urine Glucose Normal mg/dL (Normal) Troponin I High Sensitivity 65 ng/L (</=34) Test 06/24/24 11:23 Influenza Type A Antigen Positive (Negative) Influenza Type B Antigen Negative (Negative) SARS-CoV-2 Antigen (Rapid) Negative (NEGATIVE) Other Laboratory Tests 06/28/24 14:50 06/25/24 07:22 Brief Hx & Hospital Course: 68-year-old female with a known history of colon cancer , CKD who initially admitted to the hospital with a flu-like symptoms found to have acute kidney injury with a underlying CKD . Patient was found to have influenza positive but medication was not given because of contraindication because of CKD. Patient had hyperkalemia which was thought secondary to Aldactone which was held as well as potassium supplement was held. Patient's medication and yesterday started on beta padmini. Also patient has metabolic acidosis with underlying acute kidney injury on CKD, started on p.o. bicarb. Nephrology cleared the patient to be discharged. Patient's hospital course was eventful for C diff colitis requiring vancomycin p.o.. Infectious Disease was consulted patient is currently cleared to be discharged. Patient's vitals remained stable physical examination no change. Condition at Discharge: Stable Final Diagnosis/Problems List 68-year-old female with a known history of colon cancer , CKD who initially admitted to the hospital with a flu-like symptoms found to have 1. Acute kidney injury with underlying CKD 2. Hyperkalemia suspect secondary to Aldactone 3. Mildly elevated troponin suspect demand ischemia and decreased renal clearance 4. Hypertension 5. History of colon cancer 6. Influenza A positive 7. C diff colitis 8. METABOLIC ACIDOSIS Discharge Disposition: Home SNF Discharge Will this Physician continue t: No Discharge Instruct/Medications Diet: Cardiac 2g Na,low cholest Diet comment: Renal diet. Activity: No Restrictions, As Tolerated Follow Up/Referral: Follow up with the PCP in one week Follow up with the Nephrology in one week Medications: As reconciled and prescribed Discharge Statement: "Patient was advised to return to the ER or call 911 if any headaches, dizziness, shortness of breath, chest pain, abdominal pain, bleeding, fevers, or worsening of medical condition. Patient was counseled about treatment plan, medications, possible side effects, patientverbalized understanding. All questions were answered to the best of my ability. This discharge took greater then 30 minutes in planning, reviewing documentation, counseling the patient, and discussing with other team members." ASSESSMENT ASSESSMENT Assessment 68-year-old female with a known history of colon cancer , CKD who initially admitted to the hospital with a flu-like symptoms found to have 1. Acute kidney injury with underlying CKD 2. Hyperkalemia suspect secondary to Aldactone 3. Mildly elevated troponin suspect demand ischemia and decreased renal clearance 4. Hypertension 5. History of colon cancer 6. Influenza A positive 7. C diff colitis 8. METABOLIC ACIDOSIS Date of Service: Jun 28, 2024 Billing Provider: NHI CHIRINOS MD Common Visit Codes: NOT BILLABLE NHI CHIRINOS MD Jun 28, 2024 17:19
== END 2024-06-28 18:50 | disposition home or self-care (01) | DRG 193 ==
LOC: ER 09:12 → TELE 15:46 → TELE-WESTW 21:20 → TELE-EAST 06-27 22:23
PROVIDERS: ADMIT Nurse Practitioner Family; ATTEND Internal Medicine
DX: J10.1 Influenza due to other identified influenza virus with other respiratory manifestations (principal); I21.A1 Myocardial infarction type 2; N17.0 Acute kidney failure with tubular necrosis; A04.72 Enterocolitis due to Clostridium difficile, not specified as recurrent; N18.5 Chronic kidney disease, stage 5; E87.20 Acidosis, unspecified; I12.0 Hypertensive chronic kidney disease with stage 5 chronic kidney disease or end stage renal disease; Z20.822 Contact with and (suspected) exposure to COVID-19; D64.9 Anemia, unspecified; E87.5 Hyperkalemia; E87.6 Hypokalemia; T50.0X5A Adverse effect of mineralocorticoids and their antagonists, initial encounter; Z88.1 Allergy status to other antibiotic agents; Z88.0 Allergy status to penicillin; Z85.038 Personal history of other malignant neoplasm of large intestine; Z80.0 Family history of malignant neoplasm of digestive organs; Y92.89 Other specified places as the place of occurrence of the external cause
CPT/HCPCS: 36415; 71046; 80048; 80053; 81001; 84484; 85025; 87340; 87426; 87493; 87804; 93005; 94640; 96360; G0378

== ENCOUNTER 2024-11-07 20:55 | Inpatient (IN) | payer OTHER ==
[~2024-11-07] VITALS: Ht 152.4 cm; Wt 64.5 kg
[~2024-11-07 20:55] MED LIST changes: +CARV6.2517 PO; +GABA-1308 PO; -LEVO250T58 PO; -METR-344 PO; -POTA1TAB4 PO; +ROPI5TAB20 PO; +SODI650T PO; -SPIR50TA5 PO; +VANC250C4 PO
--- NOTE | 2024-11-07 21:05 | ED.PDOC ---
History of Present Illness HPI Comments 69-year-old female brought in by EMS presents with a chief complaint of generalized weakness, SOB, and irregular heart rhythm. Patient states that she was at dialysis and went to use the restroom, came back, and was feeling extremely weak and SOB. Patient was hooked up to a monitor and they found her heart rate to be in the 170's. They called EMS thereafter. Patient has no known history of A-Fib and has been compliant with all her medications. Time Seen by MD: 21:02 Primary Care Provider: Jessi GRIFFIN) Reviewed Notes: Medications, Allergies Allergies: Coded Allergies: Amoxicillin (Verified Allergy, Severe, 02/02/24) Cephalexin (Verified Allergy, Severe, 02/02/24) Clavulanic Acid (Verified Allergy, Severe, 02/02/24) Erythromycin (Verified Allergy, Severe, 02/02/24) Home Meds Active Scripts Carvedilol (Coreg) 6.25 Mg Tab, 1 TAB PO BID, #60 TAB 5 Refills Prov:NHI CHIRINOS MD 06/28/24 Sodium Bicarbonate (Sodium Bicarbonate) 650 Mg Tab, 650 MG PO TID for 7 Days, #21 TAB Prov:NHI CHIRINOS MD 06/28/24 Vancomycin HCl (Vancomycin HCl) 250 Mg Cap, 250 MG PO Q6HR for 10 Days, #40 CAP Prov:NHI CHIRINOS MD 06/28/24 Reported Medications Gabapentin (Gabapentin) 100 Mg Cap, 100 MG PO BID for 30 Days, MG 06/25/24 Ropinirole Hydrochloride (Ropinirole Hcl) 0.25 Mg Tab, 0.25 MG PO DAILY, TAB 06/24/24 Loratadine (Loratadine) 10 Mg Tab, 10 MG PO DAILY, TAB 04/04/24 B-Complex Vitamins (Vitamin B Complex) Complex Tab, 1 TAB PO DAILY, TAB 04/04/24 Multiple Vitamin (Multivitamins) Tab, 1 TAB PO DAILY, TAB 04/04/24 Alprazolam (Alprazolam) 0.5 Mg Tab, 1 TAB PO DAILY PRN for ANXIETY 04/04/24 Ondansetron HCl (Ondansetron Hydrochloride) 4 Mg Tab, 1 TAB PO DAILY PRN for NAUSEA / VOMITING 04/04/24 Buspirone HCl (Buspirone HCl) 10 Mg Tab, 1 TAB PO BID 04/04/24 Calcitriol (Calcitriol) 0.25 Mcg Cap, 1 CAP PO DAILY 04/04/24 Levothyroxine Sodium (Levothyroxine Sodium) 75 Mcg Tab, 1 TAB PO DAILY 04/04/24 Sertraline Hcl (Sertraline Hcl) 50 Mg Tab, 1 TAB PO DAILY 04/04/24 Amlodipine Besylate (Amlodipine Besylate) 10 Mg Tab, 1 TAB PO DAILY 04/04/24 Carvedilol (Carvedilol) 6.25 Mg Tab, 1 TAB PO BID 04/04/24 Pravastatin Sodium (PRAVACHOL TABLET) 20 Mg Tb, 80 MG PO DAILY 04/04/24 Information Source: Patient, Emergency Med Personnel Mode of Arrival: EMS Severity: Moderate Timing: Hours Duration: Since onset Prehospital treatment: [employer] Past Medical History PAST MEDICAL HISTORY: Cancer, CKF, ESRD, HTN CODING DIRECTOR History: No Pertinent CODING DIRECTOR History Family History Family History: Reviewed,noncontributory to illness, No family hx of Cancer, No family hx of DM, No family hx of Heart gerri, No family hx of HTN, No family hx ofKidney gerri, No family hx of Liver gerri, No family hx of Lung gerri, No family hx of Stroke Social History Smoker: Non-Smoker Alcohol: Denies ETOH Use Drugs: Denies Drug Use Lives In: Home Constitutional: reports: weakness; denies: chills, diaphoresis, fatigue, fever, malaise, sweats, others EENTM: denies: blurred vision, double vision, ear bleeding, ear discharge, ear drainage, ear pain, ear ringing, eye pain, eye redness, hearing loss, mouth pain, mouth swelling, nasal discharge, nose bleeding, nose congestion, nose pain, photophobia, tearing, throat pain, throat swelling, voice changes, others Respiratory: reports: shortness of breath; denies: cough, hemoptysis, orthopnea, SOB at rest, SOB with excertion, stridor, wheezing, others Cardiovascular: reports: irregular heart beat; denies: chest pain, dizzy spells, diaphoresis, Dyspnea on exertion, edema, left arm pain, lightheadedness, palpitations, PND, syncope, others Gastrointestinal: denies: abdomen distended, abdominal pain, blood streaked bowels, constipated, diarrhea, dysphagia, difficulty swallowing, hematemesis, melena, nausea, poor appetite, poor fluid intake, rectal bleeding, rectal pain, vomiting, others Genitourinary: denies: abnormal vagina bleeding, burning, dyspareunia, dysuria, flank pain, frequency, hematuria, incontinence, pain, , vagina discharge, urgency, others Neurological: denies: dizziness, fainting, headache, left sided numbness, left sided weakness, numbness, paresthesia, pre-existing deficit, right sided numbness, right sided weakness, seizure, speech problems, tingling, tremors, weakness, others Musculoskeletal: denies: back pain, gout, joint pain, joint swelling, muscle pain, muscle stiffness, neck pain, others Integumetry: denies: bruises, change in color, change in hair/nails, dryness, laceration, lesions, lumps, rash, wounds, others Allergic/Immunocompromised: denies: Difficulty Healing, Frequent Infections, Hives, Itching, others Hematologic/Lymphatic: denies: anemia, blood clots, easy bleeding, easy bruising, swollen glands, others Endocrine: denies: excessive hunger, excessive sweating, excessive thirst, excessive urination, flushing, intolerance to cold, intolerance to heat, unexplained weight gain, unexplained weight loss, others Psychiatric: denies: anxiety, bipolar disorder, depression, hopeless, panic disorder, schizophrenia, sleepless, suicidal, others All Other Systems: Reviewed and Negative Physical Exam General Appearance: No Apparent Distress, Normal HEENT: Normal ENT Inspection, Pharynx Normal, TMs Normal Neck: Full Range of Motion, Non-Tender, Normal, Normal Inspection Respiratory: Chest Non-Tender, Lungs Clear, No Accessory Muscle Use, No Respiratory Distress, Normal Breath Sounds Cardiovascular: No Edema, No JVD, No Murmur, No Gallop, Normal Peripheral Pulses, Tachycardia Breast Exam: Deferred Gastrointestinal: No Organomegaly, Non Tender, No Pulsatile Mass, Normal Bowel Sounds, Soft Genitalia: Deferred Pelvic: Deferred Rectal: Deferred Extremities: No calf tenderness, Normal capillary refill, Normal inspection, Normal range of motion, Non-tender, No pedal edema Musculoskeletal : Apperance: Normal Neurologic: Alert, project admin II-XII nml as Tested, No Motor Deficits, Normal Affect, Normal Mood, No Sensory Deficits Cerebellar Function: Normal Reflexes: Normal Skin: Dry, Normal Color, Warm Lymphatic: No Adenopathy Was a procedure done? Was a procedure done?: No Differential Dx Considerations may include: ACS, CVA, electrolyte abnormality, metabolic disarray X-Ray, Labs, Meds, VS Vital Signs Date Time Temp Pulse Resp B/P (MAP) Pulse Ox O2 Delivery O2 Flow Rate FiO2 11/08/24 02:00 96 21 167/78 (107) 92 11/08/24 01:30 94 22 157/75 (102) 94 11/08/24 01:00 132/68 11/08/24 01:00 126 17 132/68 (89) 95 11/08/24 00:30 151 17 156/86 (109) 96 11/08/24 00:25 144/80 11/08/24 00:00 119 17 144/80 (101) 96 11/07/24 23:52 148 11/07/24 23:51 171/74 11/07/24 23:00 92 23 171/74 (106) 97 11/07/24 21:47 94 11/07/24 21:13 98.2 96 18 161/77 (105) 99 98.2 11/07/24 21:11 96 18 99 Nasal Cannula* 4 36 11/07/24 21:02 98.0 170 20 153/88 (109) 98 98.0 11/07/24 20:56 158 Lab Test 11/08/24 00:50 11/07/24 22:31 11/07/24 21:21 11/07/24 21:11 Range/Units Troponin I High Sensitivity 184 *H 86 *H 50 *H </=34 ng/L White Blood Count 6.3 4.4-10.8 10^3/uL Red Blood Count 2.35 L 4.0-5.20 10^6/uL Hemoglobin 7.3 L 12.2-16.2 g/dL Hematocrit 21.6 L 36.0-46.0 % Mean Corpuscular Volume 92.0 80.0-100.0 fL Mean Corpuscular Hemoglobin 31.1 28.0-32.0 pg Mean Corpuscular Hemoglobin Concent 33.8 32.0-36.0 g/dL Red Cell Distribution Width 15.7 H 11.8-14.3 % Platelet Count 179 140-450 10^3/uL Mean Platelet Volume 7.7 6.9-10.8 fL Neutrophils (%) (Auto) 74.2 37.0-80.0 % Lymphocytes (%) (Auto) 14.9 10.0-50.0 % Monocytes (%) (Auto) 9.7 0.0-12.0 % Eosinophils (%) (Auto) 1.0 0.0-7.0 % Basophils (%) (Auto) 0.2 0.0-2.0 % Neutrophils # (Auto) 4.7 1.6-8.6 10 ^3/uL Lymphocytes # (Auto) 0.9 0.4-5.4 10 ^3/uL Monocytes # (Auto) 0.6 0-1.3 10 ^3/uL Eosinophils # (Auto) 0.1 0-0.8 10 ^3/uL Basophils # (Auto) 0 0-0.2 10 ^3/uL Nucleated Red Blood Cells 0.0 % Sodium Level 142 136-145 mmol/L Potassium Level 3.6 3.5-5.1 mmol/L Chloride Level 107 98-107 mmol/L Carbon Dioxide Level 27 20-31 mmol/L Anion Gap 8 5-15 Blood Urea Nitrogen 26 H 9-23 mg/dL Creatinine 3.77 H 0.550-1.02 mg/dL Glomerular Filtration Rate Calc 12 >90 mL/min BUN/Creatinine Ratio 6.9 L 10.0-20.0 Serum Glucose 149 H 74-106 mg/dL Calcium Level 9.2 8.7-10.4 mg/dL Phosphorus Level 3.2 2.4-5.1 mg/dL Magnesium Level 1.8 1.6-2.6 mg/dL B-Type Natriuretic Peptide 477.15 0-100 pg/mL POC Glucose 139 H 70-106 mg/dl Current Medications Medications (Trade) Dose Ordered Sig/Thanh Route Start Time Stop Time Status Last Admin Diltiazem HCl 125 ml @ 5 mls/hr Q24H ONCE IV 11/07/24 23:30 11/08/24 23:29 11/07/24 23:51 Diltiazem HCl (Cardizem Injection) 10 mg ONCE ONCE IV 11/07/24 23:30 11/07/24 23:31 DC 11/07/24 23:38 Time of 1ST Reevaluation: 21:32 Reevaluation 1ST: Unchanged Patient Education/Counseling: Diagnosis, Treatment Family Education/Counseling: No Family Present Departure 1 Departure Time of Disposition: 02:43 (Patient with AFib with RVR. Patient was started on diltiazem drip rockets this is patient's home medication. We will admit patient for further workup and expert consultation) Impression: Primary Impression: Atrial fibrillation with RVR Additional Impressions: Shortness of breath Palpitations Disposition: 09 ADMITTED INPATIENT Admit to: Med Surg Condition: Serious Critical Care Note Critical Care Time?: Yes Critical care comment: AFib with RVR Authorized and Performed by: Negro Reese MD Total critical care time: Approximately 42 minutes Due to a high probability of clinically significant, life threatening deterioration, the patient required my highest level of preparedness to intervene emergently and I personally spent this critical care time directly and personally managing the patient. This critical care time included obtaining a history; examining the patient; pulse oximetry; ordering and review of studies; arranging urgent treatment with development of a management plan; evaluation of patient's response to treatment; frequent reassessment; and, discussions with other providers. This critical care time was performed to assess and manage the high probability of imminent, life-threatening deterioration that could result in multi-organ failure. It was exclusive of separately billable procedures and treating other patients and teaching time. Please see my other sections and the rest of the note for further information on patient assessment and treatment. Stability Stability form required: No I personally scribed for NEGRO REESE MD ([email or web address]) on 11/07/24 at 21:05. El ectronically submitted by Shalom Jordan ([email or web address]). NEGRO REESE MD Nov 07, 2024 21:05
[2024-11-07 21:11] VITALS: PULSE 96; RESP 18; O2SAT 99
--- NOTE | 2024-11-07 21:36 | DVH ---
EXAM: XY CHEST PORTABLE TECHNIQUE: Single frontal chest radiograph CLINICAL HISTORY: sob COMPARISON: XY CHEST XRAY 1 VIEW on DOS: 04/04/24 Findings/Impression: Frontal chest radiograph demonstrates no acute osseous or superficial soft tissue abnormalities. The trachea is midline. Cardiomegaly with pulmonary vascular congestion. Small left pleural effusion and/or atelectasis. No pneumothorax.
[2024-11-07 21:43] LABS: Basophils # (auto) 0 10 ^3/uL (0-0.2); Basophils % (auto) 0.2 % (0.0-2.0); Eosinophils # (auto) 0.1 10 ^3/uL (0-0.8); Hematocrit 21.6 % (36.0-46.0); Hemoglobin 7.3 g/dL (12.2-16.2); Lymphocytes # (auto) 0.9 10 ^3/uL (0.4-5.4); Lymphocytes % (auto) 14.9 % (10.0-50.0); Mean Corpuscular Hemoglobin 31.1 pg (28.0-32.0); Mean Corpuscular Hgb Conc. 33.8 g/dL (32.0-36.0); Monocytes # (auto) 0.6 10 ^3/uL (0-1.3); Monocytes % (auto) 9.7 % (0.0-12.0); Neutrophils # (auto) 4.7 10 ^3/uL (1.6-8.6); Neutrophils % (auto) 74.2 % (37.0-80.0); Platelet Count (auto) 179 10^3/uL (140-450); Red Blood Cells 2.35 10^6/uL (4.0-5.20); Red Cell Distribution Width 15.7 % (11.8-14.3); White Blood Cell 6.3 10^3/uL (4.4-10.8)
[2024-11-07 21:53] LABS: Potassium 3.6 mmol/L (3.5-5.1); Sodium 142 mmol/L (136-145)
[2024-11-07 21:54] LABS: Anion Gap 8 (5-15); Carbon Dioxide 27 mmol/L (20-31)
[2024-11-07 21:55] LABS: Calcium 9.2 mg/dL (8.7-10.4)
[2024-11-07 21:59] LABS: Chloride 107 mmol/L (98-107)
[2024-11-07 22:00] LABS: BUN/Creatinine Ratio 6.9 (10.0-20.0); Blood Urea Nitrogen 26 mg/dL (9-23); Glucose 149 mg/dL (74-106); Magnesium 1.8 mg/dL (1.6-2.6)
[2024-11-07 22:02] LABS: Phosphorus 3.2 mg/dL (2.4-5.1)
[2024-11-07] MEDS: dilTIAZem 25 MG/5 ML VIAL IV ONE (23:38)
[2024-11-07] MEDS: dilTIAZem 125mg/125ml BAG KIT 125 ML IV ONE (23:51)
[2024-11-08] VITALS (30 sets, daily range): BP systolic 113–178; BP diastolic 49–84; PULSE 73–138; RESP 12–26; TEMP 97.8–99.3; O2SAT 93–98
[2024-11-08] MEDS ORDERED: HYDROcodone-ACET 5/325MG TAB PO PRN (03:30)
[2024-11-08] MEDS ORDERED: ACETAMINOPHEN 325 MG TAB PO PRN (03:30)
[2024-11-08] MEDS ORDERED: NITROGLYCERIN 0.4 MG SL TAB SL PRN (03:30)
[2024-11-08] MEDS ORDERED: MORPHINE SULFATE INJ 2 MG/ml SYRG IV PRN (03:30)
--- NOTE | 2024-11-08 03:43 | DVHHP2 ---
Admitting Diagnosis: Afib with RVR, Elevated troponin, CHF, ESRD on HD History of Present Illness History Source: Patient Exam Limitations: No limitations HPI Donya Palomares is a 69-year-old female with a history of ESRD on HD, colon cancer, hypertension who presents with a chief complaint of generalized weakness, SOB, and irregular heart rhythm. Patient states that she was at dialysis and went to use the restroom, came back, and was feeling extremely weak and SOB. Patient was hooked up to a monitor and they found her heart rate to be in the 170's. Patient reports she has a history of an irregular hear rate but it has never lasted this long. Patient reports associated dyspnea, and midsternal chest tightness with palpitations x 1 day. Patient states "I am scared my brother two weeks ago of a heart attack". Patient denies any headaches, dizziness, blurry vision, abdominal pain, nausea, vomiting, melena, hematochezia, dysuria, hematuria. Patient admitted for further evaluation and treatment. Home Meds Active Scripts Carvedilol (Coreg) 6.25 Mg Tab, 1 TAB PO BID, #60 TAB 5 Refills Prov:NHI CHIRINOS MD 06/28/24 Sodium Bicarbonate (Sodium Bicarbonate) 650 Mg Tab, 650 MG PO TID for 7 Days, #21 TAB Prov:NHI CHIRINOS MD 06/28/24 Vancomycin HCl (Vancomycin HCl) 250 Mg Cap, 250 MG PO Q6HR for 10 Days, #40 CAP Prov:NHI CHIRINOS MD 06/28/24 Reported Medications Gabapentin (Gabapentin) 100 Mg Cap, 100 MG PO BID for 30 Days, MG 06/25/24 Ropinirole Hydrochloride (Ropinirole Hcl) 0.25 Mg Tab, 0.25 MG PO DAILY, TAB 06/24/24 Loratadine (Loratadine) 10 Mg Tab, 10 MG PO DAILY, TAB 04/04/24 B-Complex Vitamins (Vitamin B Complex) Complex Tab, 1 TAB PO DAILY, TAB 04/04/24 Multiple Vitamin (Multivitamins) Tab, 1 TAB PO DAILY, TAB 04/04/24 Alprazolam (Alprazolam) 0.5 Mg Tab, 1 TAB PO DAILY PRN for ANXIETY 04/04/24 Ondansetron HCl (Ondansetron Hydrochloride) 4 Mg Tab, 1 TAB PO DAILY PRN for NAUSEA / VOMITING 04/04/24 Buspirone HCl (Buspirone HCl) 10 Mg Tab, 1 TAB PO BID 04/04/24 Calcitriol (Calcitriol) 0.25 Mcg Cap, 1 CAP PO DAILY 04/04/24 Levothyroxine Sodium (Levothyroxine Sodium) 75 Mcg Tab, 1 TAB PO DAILY 04/04/24 Sertraline Hcl (Sertraline Hcl) 50 Mg Tab, 1 TAB PO DAILY 04/04/24 Amlodipine Besylate (Amlodipine Besylate) 10 Mg Tab, 1 TAB PO DAILY 04/04/24 Carvedilol (Carvedilol) 6.25 Mg Tab, 1 TAB PO BID 04/04/24 Pravastatin Sodium (PRAVACHOL TABLET) 20 Mg Tb, 80 MG PO DAILY 04/04/24 Past Medical History Cardiac: HTN Pulmonary: No pertinent Hx Central Nervous System: No pertinent Hx GI: Colon cancer Hemotology/Oncology: No pertinent Hx Hepatobiliary: No pertinent Hx Psychiatric: No pertinent Hx Musculoskeletal: No pertinent Hx Rheumotologic: No pertinent Hx Infectious Disease: No peritnent Hx ENT: No pertinent Hx Renal/: ESRD HD/PD Endocrine: No pertinent Hx Dermatology: No pertinent Hx Patient Family History: FH: brain aneurysm G8 MOTHER, FH: pancreatic cancer G8 FATHER, Smoker: No Hx (Negative) Alocohol: None Drugs: None Lives with: With family Domestic Violence: Neg Review of Systems Constitutional: No symptom reported Ears, Nose, & Throat: No symptom reported Eyes: No symptom reported Pulmonary/Respiratory: Dyspnea Cardiovascular: Palpitations, Other (chest tightness) Gastrointestinal: No symptom reported Genitourinary: No symptom reported Musculoskeletal: No symptom reported Skin: No symptom reported Psychiatric: No symptom reported Endocrine: No symptom reported Hemotologic/Lymphatic: No symptom reported H&P Exam Vital Signs Vital Signs Date Time Temp Pulse Resp B/P (MAP) Pulse Ox O2 Delivery O2 Flow Rate FiO2 11/08/24 02:00 96 21 167/78 (107) 92 11/07/24 21:13 98.2 98.2 11/07/24 21:11 Nasal Cannula* 4 36 General Appeara: Well developed, Well nourished, Normal Appearance Head Exam: Normal inspection Neck Exam: Normal inspection, Non-tender, Normal alignment Eye Exam: bilateral eye Normal inspection, bilateral eye PERRL, bilateral eye EOMI Ear Exam: bilateral ear Auricle normal Nasal Exam: Normal inspection Mouth: Normal Inspection Pulmonary/Respiratory: Normal inspection, Normal breath sounds, Chest non- tender, Lungs clear Cardiovascular/Chest: Normal inspection, Regular rate, Normal Rhythm Peripheral Pulses: 2+ dorsalis pedis (R), 2+ dorsalis pedis (L), 2+ Radial (R), 2+ Radial (L) Abdominal Exam: Normal bowel sounds, Soft, No tenderness Rectal Exam: Deferred Back Exam: Normal inspection 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: Normal hearing, Normal speech, PERRL Motor/Sensory: Normal sensory function, Normal motor function Neuro/Mental St: Alert, Oriented Appearance: Appropriate appearance, Appropriate insight Eye contact/ Speech: Cooperative, Good eye contact, Normal speech Thoughts/Psych: Normal thought pattern Skin Exam: Normal inspection, Normal color, Warm/dry Labs/Xrays Labs Test 11/08/24 00:50 11/07/24 21:21 11/07/24 21:11 Range/Units Troponin I High Sensitivity 184 *H </=34 ng/L White Blood Count 6.3 4.4-10.8 10^3/uL Red Blood Count 2.35 L 4.0-5.20 10^6/uL Hemoglobin 7.3 L 12.2-16.2 g/dL Hematocrit 21.6 L 36.0-46.0 % Mean Corpuscular Volume 92.0 80.0-100.0 fL Mean Corpuscular Hemoglobin 31.1 28.0-32.0 pg Mean Corpuscular Hemoglobin Concent 33.8 32.0-36.0 g/dL Red Cell Distribution Width 15.7 H 11.8-14.3 % Platelet Count 179 140-450 10^3/uL Mean Platelet Volume 7.7 6.9-10.8 fL Neutrophils (%) (Auto) 74.2 37.0-80.0 % Lymphocytes (%) (Auto) 14.9 10.0-50.0 % Monocytes (%) (Auto) 9.7 0.0-12.0 % Eosinophils (%) (Auto) 1.0 0.0-7.0 % Basophils (%) (Auto) 0.2 0.0-2.0 % Neutrophils # (Auto) 4.7 1.6-8.6 10 ^3/uL Lymphocytes # (Auto) 0.9 0.4-5.4 10 ^3/uL Monocytes # (Auto) 0.6 0-1.3 10 ^3/uL Eosinophils # (Auto) 0.1 0-0.8 10 ^3/uL Basophils # (Auto) 0 0-0.2 10 ^3/uL Nucleated Red Blood Cells 0.0 % Sodium Level 142 136-145 mmol/L Potassium Level 3.6 3.5-5.1 mmol/L Chloride Level 107 98-107 mmol/L Carbon Dioxide Level 27 20-31 mmol/L Anion Gap 8 5-15 Blood Urea Nitrogen 26 H 9-23 mg/dL Creatinine 3.77 H 0.550-1.02 mg/dL Glomerular Filtration Rate Calc 12 >90 mL/min BUN/Creatinine Ratio 6.9 L 10.0-20.0 Serum Glucose 149 H 74-106 mg/dL Calcium Level 9.2 8.7-10.4 mg/dL Phosphorus Level 3.2 2.4-5.1 mg/dL Magnesium Level 1.8 1.6-2.6 mg/dL B-Type Natriuretic Peptide 477.15 0-100 pg/mL POC Glucose 139 H 70-106 mg/dl Assessment/Plan Problem List: (1) Atrial fibrillation with RVR (2) NSTEMI (non-ST elevated myocardial infarction) (3) CHF (congestive heart failure) (4) Acute on chronic kidney failure Plan This is a 69 yo female with a known history of hypertension, Diverticulitis, colon cancer, hypothyroidism, ESRD on HD who presents to the hospital with generalized weakness, shortness of breath, irregular heart rate. Patient was found to have 1. A fib with RVR 2. Elevated troponin levels 3. CHF 4. ESRD on HD 5. Hypertension 6. Hx of colon cancer Plan: Admit SDU Cardiology consultation, 2D echocardiogram, serial troponin levels, ASA, Statin Heparin drip per pharmacy ACS protocol Fluid restriction, strict I&O , daily weight Antihypertensive as needed for BP management Cardizem drip continued as per protocol Continue home medications when reconciled Discussed all above with patient. Discussed adverse effects of medication Heparin drip including bleeding. Patient verbalizes agreement and understanding of care plan. All questions were answered. Discussed assessment and care plan with supervising MD. Plan discussed with: Patient, Other Code Visit Code Visit Total Time (mins): 45 Additional Comments Additional Comments Additional Comments 69-year-old female with a known history of hypertension, hypothyroidism, end- stage renal disease on hemodialysis, recent diagnosis of colon cancer in December 2023 status post partial colectomy, left AV fistula initially presented to the hospital with generalized weakness and palpitations found to have 1. AFib with RVR 2. Elevated troponin rule out acute DC 3. Congestive heart failure unspecified currently compensated 4. End-stage renal disease on hemodialysis 5. Hypertension 6. Hypothyroidism 7. History of colon cancer status post partial colectomy, currently in remission -continue amiodarone drip, heparin drip, 2D echo and cardiology consultation -hemodialysis per Nephrology. -plan of care discussed with the patient and patient's at bedside, -risks benefits alternatives of heparin drip and green life-threatening bleeding disorder that explained to the patient in detail who understand verbalized understanding and agreeable to plan [facility] Nov 08, 2024 03:43 NHI CHIRINOS MD Nov 08, 2024 11:43
[2024-11-08 03:53] LABS: Urine Bacteria None Seen /hpf (None Seen)
[2024-11-08 03:55] LABS: Basophils # (auto) 0 10 ^3/uL (0-0.2); Basophils % (auto) 0.3 % (0.0-2.0); Eosinophils # (auto) 0.1 10 ^3/uL (0-0.8); Eosinophils % (auto) 1.1 % (0.0-7.0); Hematocrit 21.1 % (36.0-46.0); Hemoglobin 7.1 g/dL (12.2-16.2); Lymphocytes # (auto) 1.2 10 ^3/uL (0.4-5.4); Lymphocytes % (auto) 17.9 % (10.0-50.0); Mean Corpuscular Hemoglobin 31.1 pg (28.0-32.0); Mean Corpuscular Hgb Conc. 33.9 g/dL (32.0-36.0); Mean Corpuscular Volume 91.7 fL (80.0-100.0); Monocytes # (auto) 0.8 10 ^3/uL (0-1.3); Monocytes % (auto) 11.8 % (0.0-12.0); Neutrophils # (auto) 4.5 10 ^3/uL (1.6-8.6); Neutrophils % (auto) 68.9 % (37.0-80.0); Nucleated Red Blood Cells % 0.1 %; Platelet Count (auto) 182 10^3/uL (140-450); Red Cell Distribution Width 15.4 % (11.8-14.3); White Blood Cell 6.5 10^3/uL (4.4-10.8)
[2024-11-08 04:03] LABS: Potassium 3.6 mmol/L (3.5-5.1); Sodium 145 mmol/L (136-145)
[2024-11-08 04:04] LABS: Urine Blood Negative /uL (Negative); Urine Clarity Clear (Clear); Urine Color Colorless (Yellow); Urine Protein, UAD 1+ (Negative); Urine Specific Gravity 1.004 (1.001-1.035); Urine Squamous Epithelial Cell None Seen /hpf (<5); Urine Urobilinogen Normal (Negative); Urine WBC < 1 /HPF (0-5)
[2024-11-08 04:04] LABS: Anion Gap 9 (5-15); Calcium 9.2 mg/dL (8.7-10.4); Carbon Dioxide 26 mmol/L (20-31); Chloride 110 mmol/L (98-107)
[2024-11-08 04:09] LABS: BUN/Creatinine Ratio 6.4 (10.0-20.0); Blood Urea Nitrogen 28 mg/dL (9-23); Glucose 88 mg/dL (74-106); Triglycerides 58 mg/dL (< 150)
[2024-11-08 04:10] LABS: LDL Cholesterol 44 mg/dL (< 100); Magnesium 1.9 mg/dL (1.6-2.6)
[2024-11-08 04:11] LABS: Cholesterol 110 mg/dL (< 200); HDL Cholesterol 53 mg/dL (40-59)
[2024-11-08 04:14] LABS: INR 1.14 (0.9-1.15); Partial Thromboplastin Time 29.5 SEC (24.5-34.5); Prothrombin Time 11.9 sec (9.3-11.8)
[2024-11-08] MEDS: HEPARIN SODIUM (PORCINE) 5000 UNITS/ML 1ML VIAL IV ONE (04:47)
[2024-11-08] MEDS: HEPARIN DRIP/D5W 100UNITS/ML 250 ML IV SCH (05:07)
[2024-11-08] MEDS: ONDANSETRON HCL 4 MG/2 ML VIAL IV PRN ×2 (05:58→16:01)
[2024-11-08] MEDS ORDERED: SODIUM BICARBONATE 650 MG TAB PO SCH (06:00)
[2024-11-08] MEDS ORDERED: PATIENTS OWN MEDICATION (Sodium Bicarbonate 650 MG) PO SCH (06:00)
--- NOTE | 2024-11-08 06:24 | ECG ---
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
--- NOTE | 2024-11-08 06:25 | ECG ---
[facility] Test Date: 2024-11-07 Test Time: 21:47:07 Pat Name: BRITTA YARBROUGH Department: ED Room: 0280T Gender: F Measurement Superintendent: ARMOND : 1955 Requested By: NEGRO BELLAMY Order Number: [id number] Reading MD: Santiago Cordero Measurements Intervals [place] Rate: 94 P: 75 KS: 151 QRS: 7 QRSD: 81 T: 70 QT: 356 QTc: 446 Interpretive Statements Sinus rhythm Consider left atrial enlargement Probable anterior infarct, old Electronically Signed On 11-09-2024 13:11:12 PDT by Santiago Cordero Please click the below link to view image of tracing.
[2024-11-08] MEDS: hydrALAZINE HCL 20 MG/ML VL IV PRN (08:20)
[2024-11-08] MEDS ORDERED: PATIENTS OWN MEDICATION (Levothyroxine Sodium 1 TAB) PO SCH (10:00)
[2024-11-08] MEDS ORDERED: PATIENTS OWN MEDICATION (Carvedilol 1 TAB) PO SCH (10:00)
[2024-11-08] MEDS ORDERED: amLODIPine BESYLATE 5 MG TAB PO SCH (10:00)
[2024-11-08] MEDS ORDERED: CARVEDILOL 3.125 MG TAB PO SCH (10:00)
[2024-11-08] MEDS ORDERED: PATIENTS OWN MEDICATION (Amlodipine Besylate 1 TAB) PO SCH (10:00)
[2024-11-08] MEDS ORDERED: ALBUMIN 25% 50 ML IV ONE (10:15)
--- NOTE | 2024-11-08 10:21 | ECG ---
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
[2024-11-08] MEDS: ALPRAZolam 0.5 MG TAB PO PRN (10:25)
[2024-11-08] MEDS: PANTOPRAZOLE 40 MG/10 ML VIAL INJ IV SCH (10:28)
[2024-11-08] MEDS: AMIODARONE BOLUS KIT 100 ML IV ONE (10:31)
[2024-11-08] MEDS: CARVEDILOL 12.5 MG TAB PO SCH (10:31)
[2024-11-08] MEDS: SERTRALINE HCL 50 MG TAB PO SCH (10:32)
[2024-11-08] MEDS: busPIRone HCL 10 MG TAB PO SCH (10:33)
[2024-11-08] MEDS: ASPirin-EC 81 mg tab PO SCH (10:33)
[2024-11-08] MEDS: GABAPENTIN 100 MG CAP PO SCH (10:33)
[2024-11-08] MEDS: CALCITRIOL 0.25 MCG CAP PO SCH (10:33)
[2024-11-08] MEDS: AMIODARONE 360mg/200mL PREMIX 200 ML IV ONE (10:52)
[2024-11-08] MEDS: LEVOTHYROXINE SODIUM 25 MCG TAB PO SCH (10:53)
--- NOTE | 2024-11-08 10:54 | DVHINCON2 ---
Date Seen: Nov 08, 2024 Referring Physician BRENDA Walker Reason for Consultation A-fib with RVR History of Present Illness This is a pleasant 69-year-old female who presented to the emergency room via EMS with a chief complaint of generalized weakness. The patient who is ESRD states she was at a Hemodialysis Center when she developed increased weakness to her lower extremities followed by cardiac palpitations associated with shortness of breath. Upon EMS arrival, she was found in an atrial fibrillation rhythm with rapid ventricular rate and an associated BGL of 71 mg/dL. Medicated with IV fluids and oral glucose x 15 g. At time of assessment, the patient was fluct uating in between a normal sinus rhythm and atrial fibrillation with rapid ventricular rate. She also complaints of left-sided chest tightness, nonradiating, and rated as 3/10. Multiple 12 lead electrocardiograms x 4 revealed intermittent a-fib with RVR up to 150s bpm and a sinus rhythm without evident ST-segment changes. The patient reports significant family history for coronary artery disease including his brother two weeks ago from an massive myocardial infarction at age 67 y.o. with history of PTCAs including 2-3 FILIBERTO and other family members including a paternal uncle and two cousins from massive myocardial infarctions. Significant medical history includes hypertension, dyslipidemia, hypothyroidism, end-stage renal disease on hemod ialysis M-W-F, history of colon cancer with colectomy on 12/2023 at [facility], anxiety, and remote history of tobacco use including 30 pack-years. Past Medical History Past medical history reviewed. No other significant than mentioned above. Past Surgical History Left arm fistula Colon cancer with colectomy, 12/2023 Family History: FH: brain aneurysm G8 MOTHER, FH: pancreatic cancer G8 FATHER, Family History Family history reviewed. See HPI. Social History Denies the use of illicit drugs, alcohol, or tobacco use. Allergies: Coded Allergies: Amoxicillin (Verified Allergy, Severe, 02/02/24) Cephalexin (Verified Allergy, Severe, 02/02/24) Clavulanic Acid (Verified Allergy, Severe, 02/02/24) Erythromycin (Verified Allergy, Severe, 02/02/24) Home Meds Active Scripts Carvedilol (Coreg) 6.25 Mg Tab, 1 TAB PO BID, #60 TAB 5 Refills Prov:NHI CHIRINOS MD 06/28/24 Sodium Bicarbonate (Sodium Bicarbonate) 650 Mg Tab, 650 MG PO TID for 7 Days, #21 TAB Prov:NHI CHIRINOS MD 06/28/24 Vancomycin HCl (Vancomycin HCl) 250 Mg Cap, 250 MG PO Q6HR for 10 Days, #40 CAP Prov:NHI CHIRINOS MD 06/28/24 Reported Medications Gabapentin (Gabapentin) 100 Mg Cap, 100 MG PO BID for 30 Days, MG 06/25/24 Ropinirole Hydrochloride (Ropinirole Hcl) 0.25 Mg Tab, 0.25 MG PO DAILY, TAB 06/24/24 Loratadine (Loratadine) 10 Mg Tab, 10 MG PO DAILY, TAB 04/04/24 B-Complex Vitamins (Vitamin B Complex) Complex Tab, 1 TAB PO DAILY, TAB 04/04/24 Multiple Vitamin (Multivitamins) Tab, 1 TAB PO DAILY, TAB 04/04/24 Alprazolam (Alprazolam) 0.5 Mg Tab, 1 TAB PO DAILY PRN for ANXIETY 04/04/24 Ondansetron HCl (Ondansetron Hydrochloride) 4 Mg Tab, 1 TAB PO DAILY PRN for NAUSEA / VOMITING 04/04/24 Buspirone HCl (Buspirone HCl) 10 Mg Tab, 1 TAB PO BID 04/04/24 Calcitriol (Calcitriol) 0.25 Mcg Cap, 1 CAP PO DAILY 04/04/24 Levothyroxine Sodium (Levothyroxine Sodium) 75 Mcg Tab, 1 TAB PO DAILY 04/04/24 Sertraline Hcl (Sertraline Hcl) 50 Mg Tab, 1 TAB PO DAILY 04/04/24 Amlodipine Besylate (Amlodipine Besylate) 10 Mg Tab, 1 TAB PO DAILY 04/04/24 Carvedilol (Carvedilol) 6.25 Mg Tab, 1 TAB PO BID 04/04/24 Pravastatin Sodium (PRAVACHOL TABLET) 20 Mg Tb, 80 MG PO DAILY 04/04/24 Home Meds Home medications reviewed. Current Medications Current Medications Medications (Trade) Dose Ordered Sig/Thanh Route PRN Reason Start Time Stop Time Status Last Admin Nitroglycerin (Ntrostat Sublingual) 0.4 mg Q5MINP PRN SL FOR CHEST PAIN 11/08/24 03:30 Morphine Sulfate 2 mg Q30M PRN IV FOR CHEST PAIN 11/08/24 03:30 Heparin Sodium/ Dextrose 250 ml @ 7 mls/hr Q24H IV 11/08/24 04:45 11/08/24 05:07 Ondansetron HCl (Zofran) 4 mg Q6HP PRN IV NAUSEA / VOMITING 11/08/24 03:30 11/08/24 05:58 Acetaminophen/ Hydrocodone Bitart ([place] 5/325MG Tab) 1 tab Q6HPRN PRN PO PAIN SCALE 1 THRU 6 11/08/24 03:30 Pantoprazole Sodium (Protonix) 40 mg DAILY IV 11/08/24 10:00 Acetaminophen (Tylenol Tablet) 650 mg Q6HPRN PRN PO PAIN SCALE 1-3 OR TEMP>100.4 11/08/24 03:30 Atorvastatin Calcium (Lipitor) 40 mg HS PO 11/08/24 22:00 Aspirin (Ecotrin Enteric Coated Tablet) 81 mg DAILY PO 11/08/24 10:00 Hydralazine HCl (Apresoline Injection) 10 mg Q6HPRN PRN IV SBP>160 or DBP>105 11/08/24 03:45 11/08/24 08:20 Alprazolam (Xanax Tablet) 0.5 mg DAILY PRN PO ANXIETY 11/08/24 05:00 11/08/24 10:25 Buspirone HCl (Buspar Tablet) 10 mg BID PO 11/08/24 10:00 Gabapentin (Neurontin Capsule) 100 mg BID PO 11/08/24 10:00 Sertraline HCl (Zoloft) 50 mg DAILY PO 11/08/24 10:00 Patient Own Medication 1 tab DAILY PO 11/08/24 10:00 11/08/24 05:20 WA Patient Own Medication 1 tab BID PO 11/08/24 10:00 11/08/24 05:20 WA Patient Own Medication 1 tab DAILY PO 11/08/24 10:00 11/08/24 05:20 WA Patient Own Medication 0.25 mg HS PO 11/08/24 22:00 Patient Own Medication 650 mg TID PO 11/08/24 06:00 11/08/24 05:20 DC Calcitriol (Rocaltrol Capsule) 0.25 mcg DAILY PO 11/08/24 10:00 Amlodipine Besylate (Norvasc Tablet) 10 mg DAILY PO 11/08/24 10:00 11/08/24 10:08 DC Carvedilol (Coreg Tablet) 6.25 mg BID PO 11/08/24 10:00 11/08/24 10:08 DC Levothyroxine Sodium (Synthroid Tablet) 75 mcg DAILY@0630 PO 11/08/24 06:30 Sodium Bicarbonate 650 mg TID PO 11/08/24 06:00 Carvedilol (Coreg Tablet) 12.5 mg BID PO 11/08/24 10:11 Review of Systems Constitutional: Generalized weakness Ears, Nose, & Throat: No symptom reported Eyes: No symptom reported Neurological: No symptoms reported Pulmonary/Respiratory: SOB Cardiovascular: Chest pain, palpitations Gastrointestinal: No symptom reported Genitourinary: No symptom reported Musculoskeletal: No symptom reported Skin: No symptom reported Psychiatric: No symptom reported Endocrine: No symptom reported Hemotologic/Lymphatic: No symptom reported Vital Signs Vital Signs Date Time Temp Pulse Resp B/P (MAP) Pulse Ox O2 Delivery O2 Flow Rate FiO2 11/08/24 08:20 172/75 11/08/24 08:00 104 11/08/24 07:00 19 96 11/07/24 21:13 98.2 98.2 11/07/24 21:11 Nasal Cannula* 4 36 Physical Exam General Appearance: Cooperative. Well developed. Pale. In no acute distress Head Exam: Normal inspection Neck Exam: Normal inspection. Non-tender. Normal alignment Pulmonary/Respiratory: Chest non-tender. Crackles to bilateral breath sounds Cardiovascular/Chest: Irregularly irregular rate and rhythm. Paroxysmal AFib with RVR. Peripheral Pulses: 2+ Radial (R). 2+ Radial (L). 2+ Pedal (R). 2+ Pedal (L) Abdominal Exam: Normal bowel sounds. Soft. Nontender. Ankle Exam: Negative ankle edema Lower extremities: Negative lower extremity edema Neuro/Mental Status: A&O x4. Coherent Thoughts/Psych: Normal thought pattern. Appropriate mood and affect. Good judgement and insight Appearance: In no acute distress Skin Exam: Normal inspection. Pale color. Warm. Dry Labs/Diagnostic Data Labs Test 11/08/24 03:51 11/08/24 03:40 11/07/24 21:21 11/07/24 21:11 Range/Units Urine Color Colorless Yellow Urine Clarity Clear Clear Urine pH 8.0 5.0-9.0 Urine Specific [place] 1.004 1.001-1.035 Urine Protein 1+ H Negative Urine Ketones Negative Negative Urine Blood Negative Negative /uL Urine Nitrite Negative Negative Urine Bilirubin Negative Negative Urine Urobilinogen Normal Negative mg/dL Urine Leukocyte Esterase Negative Negative /uL Urine RBC 1 0 - 4 /hpf Urine Microscopic WBC < 1 0-5 /HPF Urine Squamous Epithelial Cells None seen <5 /hpf Urine Bacteria None seen None Seen /hpf Urine Glucose Trace Normal mg/dL White Blood Count 6.5 4.4-10.8 10^3/uL Red Blood Count 2.30 L 4.0-5.20 10^6/uL Hemoglobin 7.1 L 12.2-16.2 g/dL Hematocrit 21.1 L 36.0-46.0 % Mean Corpuscular Volume 91.7 80.0-100.0 fL Mean Corpuscular Hemoglobin 31.1 28.0-32.0 pg Mean Corpuscular Hemoglobin Concent 33.9 32.0-36.0 g/dL Red Cell Distribution Width 15.4 H 11.8-14.3 % Platelet Count 182 140-450 10^3/uL Mean Platelet Volume 7.4 6.9-10.8 fL Neutrophils (%) (Auto) 68.9 37.0-80.0 % Lymphocytes (%) (Auto) 17.9 10.0-50.0 % Monocytes (%) (Auto) 11.8 0.0-12.0 % Eosinophils (%) (Auto) 1.1 0.0-7.0 % Basophils (%) (Auto) 0.3 0.0-2.0 % Neutrophils # (Auto) 4.5 1.6-8.6 10 ^3/uL Lymphocytes # (Auto) 1.2 0.4-5.4 10 ^3/uL Monocytes # (Auto) 0.8 0-1.3 10 ^3/uL Eosinophils # (Auto) 0.1 0-0.8 10 ^3/uL Basophils # (Auto) 0 0-0.2 10 ^3/uL Nucleated Red Blood Cells 0.1 % Prothrombin Time 11.9 H 9.3-11.8 sec Prothrombin Time INR 1.14 0.9-1.15 Activated Partial Thromboplast Time 29.5 24.5-34.5 SEC Sodium Level 145 136-145 mmol/L Potassium Level 3.6 3.5-5.1 mmol/L Chloride Level 110 H 98-107 mmol/L Carbon Dioxide Level 26 20-31 mmol/L Anion Gap 9 5-15 Blood Urea Nitrogen 28 H 9-23 mg/dL Creatinine 4.40 H 0.550-1.02 mg/dL Glomerular Filtration Rate Calc 10 >90 mL/min BUN/Creatinine Ratio 6.4 L 10.0-20.0 Serum Glucose 88 74-106 mg/dL Calcium Level 9.2 8.7-10.4 mg/dL Magnesium Level 1.9 1.6-2.6 mg/dL Troponin I High Sensitivity 255 *H </=34 ng/L Triglycerides Level 58 < 150 mg/dL Cholesterol Level 110 < 200 mg/dL LDL Cholesterol 44 < 100 mg/dL HDL Cholesterol 53 40-59 mg/dL Thyroid Stimulating Hormone (TSH) 5.26 H 0.55-4.78 uIU/mL Free Thyroxine (T4) Calculated 0.91 0.89-1.76 ng/dL Phosphorus Level 3.2 2.4-5.1 mg/dL B-Type Natriuretic Peptide 477.15 0-100 pg/mL POC Glucose 139 H 70-106 mg/dl Assessment Non ST-elevation myocardial infarction Paroxysmal atrial fibrillation with RVR, Stage IIIa, newly diagnosed Rule out structural heart disease Hypertension Dyslipidemia Hypothyroidism ESRD on HD Anemia in chronic disease Hx of colon cancer with colectomy Remote hx of tobacco use including 30 pack-years Pertinent family history of coronary artery disease Anxiety Plan/Recommendation (Dr. Raymond) We will continue further cardiac evaluation with a transthoracic echocardiogram to evaluate cardiac function. Currently on heparin drip per pharmacy protocol, repeat H&H given down trending levels. Collect FOBT. [id number] Score 4 points, HAS-BLED Score 3 pints. Discontinue Cardizem drip, continue Coreg therapy, and initiate antiarrhythmic with amiodarone IV including bolus dosage. The patient presents with multiple risk factors for coronary artery disease, given severe anemia we will hold off from invasive cardiac procedures at this time and maximize medical therapy. Monitor ECG changes closely and notify. Rest of plan per clinical course. Thank you for allowing us to participate in this patient's care. Please call if you have any questions or concerns. Critical care time: 40 min. This medical document was created using an electronic medical record system with voice recognition software and computerized dictation system. Although this document has been carefully reviewed, there might still be some phonetic and typographical errors. Occasional wrong-word or ``sound-alike substitutions may have occurred due to the inherent limitations of voice recognition software. These areas are purely typographical due to imperfections of the software programs and do not reflect any compromise in the patient's medical care. Please read the chart carefully and recognize, using context, where these substitutions have occurred. Plan discussed with: Patient, Daughter, Other NYHA Physical activity limitations: NA Date of Service: Nov 08, 2024 Billing Provider: BILL ANDERSEN Cardiology Common Codes: [id number] CARE 30-74 MIN BILL ANDERSEN Nov 08, 2024 10:54
[2024-11-08] MEDS: MAGNESIUM SULFATE 1GM/100ML 100 ML IV ONE (11:16)
--- NOTE | 2024-11-08 11:21 | DVHCONRES ---
Date Seen: Nov 08, 2024 Resident Creating Document: ROMEO NUÑEZ RESIDENT Referring Physician Reason for Consultation ESRD on HD History of Present Illness 69-year-old female patient has past medical history of diverticulitis, colon cancer status post colectomy in December 2023 at [place], end-stage renal disease on hemodialysis Thursday- Thursday- and Thursday via left upper extremity AV fistula, hypertension, and remote 30 pack year tobacco history. She presented to emergency department due to generalized weakness and bilateral lower extremity weakness that began during the scheduled hemodialysis session previous symptoms were associated with palpitation and dyspnea. On arrival EKG showed atrial fibrillation with rapid ventricular response heart rate reaching until 170s, without ST changes. No evidence of fluid overload was found on physical examination. Initial management including diltiazem, later transitioned to amiodarone and carvedilol. However blood pressure remains elevated likely secondary due to underlying end-stage renal disease. The patient is not anuric and continues to produce urine. Chest x-ray revealed mild cardiomegaly and vascular congestion with a small left pleural effusion. Lab showed elevated troponin suggestive of NSTEMI type 2, BUN 64, creatinine 4.4, chloride 110 and TSH mildly elevated at 5.26 with a low normal free T4 at 0.9, hemoglobin is 7.1 (borderline). She has never received a transfusion. Trace protein and glucose were found on urinalysis she experienced nausea and was started on on the center on IV 4 mg. Additional labs including PTH vitamin- D urine protein/creatinine ratio and urine osmolality were ordered. Iron panel pending. Past Surgical History Left arm AV fistula for hemodialysis Colectomy December 2023 [place] Family History: FH: brain aneurysm G8 MOTHER, FH: pancreatic cancer G8 FATHER, Allergies: Coded Allergies: Amoxicillin (Verified Allergy, Severe, 02/02/24) Cephalexin (Verified Allergy, Severe, 02/02/24) Clavulanic Acid (Verified Allergy, Severe, 02/02/24) Erythromycin (Verified Allergy, Severe, 02/02/24) Home Meds Active Scripts Carvedilol (Coreg) 6.25 Mg Tab, 1 TAB PO BID, #60 TAB 5 Refills Prov:NHI CHIRINOS MD 06/28/24 Sodium Bicarbonate (Sodium Bicarbonate) 650 Mg Tab, 650 MG PO TID for 7 Days, #21 TAB Prov:NHI CHIRINOS MD 06/28/24 Vancomycin HCl (Vancomycin HCl) 250 Mg Cap, 250 MG PO Q6HR for 10 Days, #40 CAP Prov:NHI CHIRINOS MD 06/28/24 Reported Medications Gabapentin (Gabapentin) 100 Mg Cap, 100 MG PO BID for 30 Days, MG 06/25/24 Ropinirole Hydrochloride (Ropinirole Hcl) 0.25 Mg Tab, 0.25 MG PO DAILY, TAB 06/24/24 Loratadine (Loratadine) 10 Mg Tab, 10 MG PO DAILY, TAB 04/04/24 B-Complex Vitamins (Vitamin B Complex) Complex Tab, 1 TAB PO DAILY, TAB 04/04/24 Multiple Vitamin (Multivitamins) Tab, 1 TAB PO DAILY, TAB 04/04/24 Alprazolam (Alprazolam) 0.5 Mg Tab, 1 TAB PO DAILY PRN for ANXIETY 04/04/24 Ondansetron HCl (Ondansetron Hydrochloride) 4 Mg Tab, 1 TAB PO DAILY PRN for NAUSEA / VOMITING 04/04/24 Buspirone HCl (Buspirone HCl) 10 Mg Tab, 1 TAB PO BID 04/04/24 Calcitriol (Calcitriol) 0.25 Mcg Cap, 1 CAP PO DAILY 04/04/24 Levothyroxine Sodium (Levothyroxine Sodium) 75 Mcg Tab, 1 TAB PO DAILY 04/04/24 Sertraline Hcl (Sertraline Hcl) 50 Mg Tab, 1 TAB PO DAILY 04/04/24 Amlodipine Besylate (Amlodipine Besylate) 10 Mg Tab, 1 TAB PO DAILY 04/04/24 Carvedilol (Carvedilol) 6.25 Mg Tab, 1 TAB PO BID 04/04/24 Pravastatin Sodium (PRAVACHOL TABLET) 20 Mg Tb, 80 MG PO DAILY 04/04/24 Current Medications Current Medications Medications (Trade) Dose Ordered Sig/Thanh Route PRN Reason Start Time Stop Time Status Last Admin Nitroglycerin (Ntrostat Sublingual) 0.4 mg Q5MINP PRN SL FOR CHEST PAIN 11/08/24 03:30 Morphine Sulfate 2 mg Q30M PRN IV FOR CHEST PAIN 11/08/24 03:30 Heparin Sodium/ Dextrose 250 ml @ 7 mls/hr Q24H IV 11/08/24 04:45 11/08/24 05:07 Ondansetron HCl (Zofran) 4 mg Q6HP PRN IV NAUSEA / VOMITING 11/08/24 03:30 11/08/24 10:52 DC 11/08/24 05:58 Acetaminophen/ Hydrocodone Bitart ([place] 5/325MG Tab) 1 tab Q6HPRN PRN PO PAIN SCALE 1 THRU 6 11/08/24 03:30 Pantoprazole Sodium (Protonix) 40 mg DAILY IV 11/08/24 10:00 11/08/24 10:28 Acetaminophen (Tylenol Tablet) 650 mg Q6HPRN PRN PO PAIN SCALE 1-3 OR TEMP>100.4 11/08/24 03:30 Atorvastatin Calcium (Lipitor) 40 mg HS PO 11/08/24 22:00 Aspirin (Ecotrin Enteric Coated Tablet) 81 mg DAILY PO 11/08/24 10:00 11/08/24 10:33 Hydralazine HCl (Apresoline Injection) 10 mg Q6HPRN PRN IV SBP>160 or DBP>105 11/08/24 03:45 11/08/24 08:20 Alprazolam (Xanax Tablet) 0.5 mg DAILY PRN PO ANXIETY 11/08/24 05:00 11/08/24 10:25 Buspirone HCl (Buspar Tablet) 10 mg BID PO 11/08/24 10:00 11/08/24 10:33 Gabapentin (Neurontin Capsule) 100 mg BID PO 11/08/24 10:00 11/08/24 10:33 Sertraline HCl (Zoloft) 50 mg DAILY PO 11/08/24 10:00 11/08/24 10:32 Patient Own Medication 1 tab DAILY PO 11/08/24 10:00 11/08/24 05:20 DC Patient Own Medication 1 tab BID PO 11/08/24 10:00 11/08/24 05:20 DC Patient Own Medication 1 tab DAILY PO 11/08/24 10:00 11/08/24 05:20 DC Patient Own Medication 0.25 mg HS PO 11/08/24 22:00 Patient Own Medication 650 mg TID PO 11/08/24 06:00 11/08/24 05:20 DC Calcitriol (Rocaltrol Capsule) 0.25 mcg DAILY PO 11/08/24 10:00 11/08/24 10:33 Amlodipine Besylate (Norvasc Tablet) 10 mg DAILY PO 11/08/24 10:00 11/08/24 10:08 DC Carvedilol (Coreg Tablet) 6.25 mg BID PO 11/08/24 10:00 11/08/24 10:08 DC Levothyroxine Sodium (Synthroid Tablet) 75 mcg DAILY@0630 PO 11/08/24 06:30 11/08/24 10:53 Sodium Bicarbonate 650 mg TID PO 11/08/24 06:00 Carvedilol (Coreg Tablet) 12.5 mg BID PO 11/08/24 10:11 11/08/24 10:31 Ondansetron HCl (Zofran) 4 mg Q4HP PRN IV NAUSEA / VOMITING 11/08/24 11:00 UNV Review of Systems Constitutional: No: Fever, Chills, Sweats, Weakness, Malaise, Other Eyes: No: Pain, Vision change, Conjunctivae inflammation, Eyelid inflammation, Other, Redness ENT: No: Ear pain, Ear discharge, Nose pain, Nose discharge, Nose congestion, Mouth pain, Mouth swelling, Throat pain, Throat swelling, Other Respiratory: Shortness of breath, improving No Wheezing, Hemoptysis, Pleuritic Pain, Sputum, Wheezing, Other Cardiovascular: No: Chest Pain, Palpitations, Orthopnea, Paroxysmal Noc. Dyspnea, Edema, Lt Headedness, Other Gastrointestinal: yes: Nausea no: Vomiting, Abdominal Pain, Diarrhea, Constipation, Melena, Hematochezia, Other Musculoskeletal: No: other, neck pain, shoulder pain, arm pain, back pain, hand pain, leg pain, foot pain Vital Signs Vital Signs Date Time Temp Pulse Resp B/P (MAP) Pulse Ox O2 Delivery O2 Flow Rate FiO2 11/08/24 10:31 129 138/84 11/08/24 07:00 19 96 11/07/24 21:13 98.2 98.2 11/07/24 21:11 Nasal Cannula* 4 36 Physical Exam Examination General Appearance: Alert, Oriented X3, Cooperative, No acute distress Respiratory: Crackles present, Normal air movement, no wheezing Cardiovascular: Regular rate, Normal S1, Normal S2 Abdominal: Normal bowel sounds Extremities: No cyanosis, No edema, Normal pulses, No tenderness/swelling Skin: No rashes, No breakdown Neuro: Normal speech, Strength at 5/5 X4 ext, Normal tone, Sensation intact, Cranial nerves 3-12 NL, Reflexes 2+ Psych/Mental Status: Mental status NL, Mood NL Labs/Diagnostic Data Labs Test 11/08/24 03:51 11/08/24 03:40 11/07/24 21:21 11/07/24 21:11 Range/Units Urine Color Colorless Yellow Urine Clarity Clear Clear Urine pH 8.0 5.0-9.0 Urine Specific [place] 1.004 1.001-1.035 Urine Protein 1+ H Negative Urine Ketones Negative Negative Urine Blood Negative Negative /uL Urine Nitrite Negative Negative Urine Bilirubin Negative Negative Urine Urobilinogen Normal Negative mg/dL Urine Leukocyte Esterase Negative Negative /uL Urine RBC 1 0 - 4 /hpf Urine Microscopic WBC < 1 0-5 /HPF Urine Squamous Epithelial Cells None seen <5 /hpf Urine Bacteria None seen None Seen /hpf Urine Glucose Trace Normal mg/dL White Blood Count 6.5 4.4-10.8 10^3/uL Red Blood Count 2.30 L 4.0-5.20 10^6/uL Hemoglobin 7.1 L 12.2-16.2 g/dL Hematocrit 21.1 L 36.0-46.0 % Mean Corpuscular Volume 91.7 80.0-100.0 fL Mean Corpuscular Hemoglobin 31.1 28.0-32.0 pg Mean Corpuscular Hemoglobin Concent 33.9 32.0-36.0 g/dL Red Cell Distribution Width 15.4 H 11.8-14.3 % Platelet Count 182 140-450 10^3/uL Mean Platelet Volume 7.4 6.9-10.8 fL Neutrophils (%) (Auto) 68.9 37.0-80.0 % Lymphocytes (%) (Auto) 17.9 10.0-50.0 % Monocytes (%) (Auto) 11.8 0.0-12.0 % Eosinophils (%) (Auto) 1.1 0.0-7.0 % Basophils (%) (Auto) 0.3 0.0-2.0 % Neutrophils # (Auto) 4.5 1.6-8.6 10 ^3/uL Lymphocytes # (Auto) 1.2 0.4-5.4 10 ^3/uL Monocytes # (Auto) 0.8 0-1.3 10 ^3/uL Eosinophils # (Auto) 0.1 0-0.8 10 ^3/uL Basophils # (Auto) 0 0-0.2 10 ^3/uL Nucleated Red Blood Cells 0.1 % Prothrombin Time 11.9 H 9.3-11.8 sec Prothrombin Time INR 1.14 0.9-1.15 Activated Partial Thromboplast Time 29.5 24.5-34.5 SEC Sodium Level 145 136-145 mmol/L Potassium Level 3.6 3.5-5.1 mmol/L Chloride Level 110 H 98-107 mmol/L Carbon Dioxide Level 26 20-31 mmol/L Anion Gap 9 5-15 Blood Urea Nitrogen 28 H 9-23 mg/dL Creatinine 4.40 H 0.550-1.02 mg/dL Glomerular Filtration Rate Calc 10 >90 mL/min BUN/Creatinine Ratio 6.4 L 10.0-20.0 Serum Glucose 88 74-106 mg/dL Calcium Level 9.2 8.7-10.4 mg/dL Magnesium Level 1.9 1.6-2.6 mg/dL Troponin I High Sensitivity 255 *H </=34 ng/L Triglycerides Level 58 < 150 mg/dL Cholesterol Level 110 < 200 mg/dL LDL Cholesterol 44 < 100 mg/dL HDL Cholesterol 53 40-59 mg/dL Thyroid Stimulating Hormone (TSH) 5.26 H 0.55-4.78 uIU/mL Free Thyroxine (T4) Calculated 0.91 0.89-1.76 ng/dL Phosphorus Level 3.2 2.4-5.1 mg/dL B-Type Natriuretic Peptide 477.15 0-100 pg/mL POC Glucose 139 H 70-106 mg/dl Assessment Assessment: Acute respiratory distress likely due to congestive heart failure exacerbation NYHA III End-stage renal disease on hemodialysis Paroxysmal Atrial fibrillation with rapid ventricular response Secondary hypertension NSTEMI type 2 Severe normocytic normochromic Anemia 6.9 hb anemia of chronic disease in the setting of ESRD Subclinical hypothyroidism Colon cancer status post colectomy Anxiety Plan: PRBC transfusion No signs of fluid overload Volume status must be closely monitored given cardiac findings. Continue hemodialysis as scheduled. Monitor pre and post dialysis weight is an electrolytes. Optimize cardiac rate and blood pressure control Avoid excess fluid Consider transfusion if hemoglobin dropped below 7 Urine osmolality Protein/creatinine ratio Urine sodium Parathyroid hormone Vitamin-D levels Epogen Iron panel Ferritin levels case discussed with goals of care discussed with the patient for 21 min code status: full code Plan discussed with: Patient ROMEO NUÑEZ RESIDENT Nov 08, 2024 11:21
[2024-11-08 11:59] LABS: Hematocrit 20.7 % (36.0-46.0)
[2024-11-08 12:02] LABS: Hemoglobin 6.9 g/dL (12.2-16.2)
[2024-11-08 12:11] LABS: INR 1.34 (0.9-1.15); Partial Thromboplastin Time 43.1 SEC (24.5-34.5); Prothrombin Time 13.8 sec (9.3-11.8)
[2024-11-08 12:12] LABS: % Iron Saturation 17.3 % (15-50)
[2024-11-08 13:01] LABS: Protein, Urine 98.6 mg/dL (1-14)
[2024-11-08 13:04] LABS: Creatinine, Urine 9.42 mg/dL (30.0-125.0); Urine Protein/Creatinine Ratio 10.47
[2024-11-08] MEDS: AMIODARONE HCL 200 MG TAB PO ONE (16:02)
[2024-11-08] MEDS: AMIODARONE 360mg/200mL PREMIX 200 ML IV SCH (16:37)
--- NOTE | 2024-11-08 20:04 | ECG ---
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
--- NOTE | 2024-11-08 20:04 | ECG ---
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
[2024-11-08] MEDS: ROPINIROLE HYDROCHLORIDE 0.25 MG PO SCH (22:00)
[2024-11-08] MEDS: AMIODARONE HCL 200 MG TAB PO SCH (22:00)
[2024-11-08] MEDS: ATORVASTATIN 20 MG TAB PO SCH (22:27)
[2024-11-09] VITALS (8 sets, daily range): BP systolic 112–151; BP diastolic 57–70; PULSE 68–83; RESP 16–19; TEMP 97.5–98.1; O2SAT 92–96
[2024-11-09] MEDS ORDERED: SODIUM CHL 0.9% 1000 ML BAG XX ONE (07:00)
[2024-11-09 08:43] LABS: Basophils # (auto) 0 10 ^3/uL (0-0.2); Eosinophils # (auto) 0.1 10 ^3/uL (0-0.8); Hematocrit 25.4 % (36.0-46.0); Hemoglobin 8.4 g/dL (12.2-16.2); Lymphocytes # (auto) 0.9 10 ^3/uL (0.4-5.4); Monocytes # (auto) 0.7 10 ^3/uL (0-1.3); Neutrophils # (auto) 4.4 10 ^3/uL (1.6-8.6)
[2024-11-09 08:45] LABS: Basophils % (auto) 0.4 % (0.0-2.0); Eosinophils % (auto) 1.8 % (0.0-7.0); Lymphocytes % (auto) 14.2 % (10.0-50.0); Mean Corpuscular Hemoglobin 29.6 pg (28.0-32.0); Mean Corpuscular Volume 89.6 fL (80.0-100.0); Monocytes % (auto) 11.4 % (0.0-12.0); Neutrophils % (auto) 72.2 % (37.0-80.0); Nucleated Red Blood Cells % 0.1 %; Platelet Count (auto) 181 10^3/uL (140-450); Red Blood Cells 2.84 10^6/uL (4.0-5.20); Red Cell Distribution Width 17.5 % (11.8-14.3); White Blood Cell 6.2 10^3/uL (4.4-10.8)
[2024-11-09 09:13] LABS: Albumin 3.7 g/dL (3.2-4.8); Alkaline Phosphatase 49 U/L (46-116); Anion Gap 13 (5-15); BUN/Creatinine Ratio 5.9 (10.0-20.0); Calcium 9.7 mg/dL (8.7-10.4); Carbon Dioxide 24 mmol/L (20-31); Chloride 106 mmol/L (98-107); Magnesium 2.2 mg/dL (1.6-2.6); Sodium 143 mmol/L (136-145); Total Protein 5.7 g/dL (5.7-8.2)
--- NOTE | 2024-11-09 09:19 | DVHDSRES ---
Discharge Summary Date of Admission Resident Creating Document: ROMEO NUÑEZ RESIDENT Nov 08, 2024 at 03:21 Labs/Diagnostic Data: Laboratory Results Test 11/09/24 08:33 11/08/24 11:43 11/08/24 03:51 11/08/24 03:40 White Blood Count 6.2 10^3/uL (4.4-10.8) Red Blood Count 2.84 10^6/uL (4.0-5.20) Hemoglobin 8.4 g/dL (12.2-16.2) Hematocrit 25.4 % (36.0-46.0) Mean Corpuscular Volume 89.6 fL (80.0-100.0) Mean Corpuscular Hemoglobin 29.6 pg (28.0-32.0) Mean Corpuscular Hemoglobin Concent 33.0 g/dL (32.0-36.0) Red Cell Distribution Width 17.5 % (11.8-14.3) Platelet Count 181 10^3/uL (140-450) Mean Platelet Volume 7.5 fL (6.9-10.8) Neutrophils (%) (Auto) 72.2 % (37.0-80.0) Lymphocytes (%) (Auto) 14.2 % (10.0-50.0) Monocytes (%) (Auto) 11.4 % (0.0-12.0) Eosinophils (%) (Auto) 1.8 % (0.0-7.0) Basophils (%) (Auto) 0.4 % (0.0-2.0) Neutrophils # (Auto) 4.4 10 ^3/uL (1.6-8.6) Lymphocytes # (Auto) 0.9 10 ^3/uL (0.4-5.4) Monocytes # (Auto) 0.7 10 ^3/uL (0-1.3) Eosinophils # (Auto) 0.1 10 ^3/uL (0-0.8) Basophils # (Auto) 0 10 ^3/uL (0-0.2) Nucleated Red Blood Cells 0.1 % Prothrombin Time 13.8 sec (9.3-11.8) Prothrombin Time INR 1.34 (0.9-1.15) Activated Partial Thromboplast Time 43.1 SEC (24.5-34.5) Iron Level 43 ug/dL (50-170) Total Iron Binding Capacity 248 ug/dL (250-425) Percent Iron Saturation 17.3 % (15-50) Ferritin 162.6 ng/mL (10-291) Urine Color Colorless (Yellow) Urine Clarity Clear (Clear) Urine pH 8.0 (5.0-9.0) Urine Specific [place] 1.004 (1.001-1.035) Urine Protein 1+ (Negative) Urine Ketones Negative (Negative) Urine Blood Negative /uL (Negative) Urine Nitrite Negative (Negative) Urine Bilirubin Negative (Negative) Urine Urobilinogen Normal mg/dL (Negative) Urine Leukocyte Esterase Negative /uL (Negative) Urine RBC 1 /hpf (0 - 4) Urine Microscopic WBC < 1 /HPF (0-5) Urine Squamous Epithelial Cells None seen /hpf (<5) Urine Bacteria None seen /hpf (None Seen) Urine Glucose Trace mg/dL (Normal) Troponin I High Sensitivity 255 ng/L (</=34) Triglycerides Level 58 mg/dL (< 150) Cholesterol Level 110 mg/dL (< 200) LDL Cholesterol 44 mg/dL (< 100) HDL Cholesterol 53 mg/dL (40-59) Vitamin D 25-Hydroxy 30.0 ng/mL (30.0-100) Thyroid Stimulating Hormone (TSH) 5.26 uIU/mL (0.55-4.78) Free Thyroxine (T4) Calculated 0.91 ng/dL (0.89-1.76) Parathyroid Hormone (Intact) 488.5 pg/mL (18.4-80.1) Test 11/08/24 03:31 11/07/24 21:21 11/07/24 21:11 Urine Osmolality 168 mOsm/kg Urine Creatinine 9.42 mg/dL (30.0-125.0) Urine Protein/Creatinine Ratio 10.47 Urine Total Protein 98.6 mg/dL (1-14) Phosphorus Level 3.2 mg/dL (2.4-5.1) B-Type Natriuretic Peptide 477.15 pg/mL (0-100) POC Glucose 139 mg/dl (70-106) Other Laboratory Tests 11/09/24 08:33 Discharge Statement: "Patient was advised to return to the ER or call 911 if any headaches, dizziness, shortness of breath, chest pain, abdominal pain, bleeding, fevers, or worsening of medical condition. Patient was counseled about treatment plan, medications, possible side effects, patientverbalized understanding. All questions were answered to the best of my ability. This discharge took greater then 30 minutes in planning, reviewing documentation, counseling the patient, and discussing with other team members." ASSESSMENT ASSESSMENT Assessment ROMEO NUÑEZ RESIDENT Nov 09, 2024 09:19
[2024-11-09 09:22] LABS: Alanine Aminotransferase 53 U/L (7-40); Aspartate Aminotransferase 10 U/L (13-40); Bilirubin, Total 0.2 mg/dL (0.2-1.0); Blood Urea Nitrogen 36 mg/dL (9-23); Glucose 148 mg/dL (74-106); Potassium 3.4 mmol/L (3.5-5.1)
--- NOTE | 2024-11-09 10:26 | DVHPN2 ---
Consult Progress Note Subjective Other Systems: Patient in normal sinus rhythm on commercial attorney Objective vital signs Vital Sign Date Time Temp Pulse Resp B/P (MAP) Pulse Ox O2 Delivery O2 Flow Rate FiO2 11/09/24 08:37 69 112/67 11/09/24 08:36 98.1 19 96 98.1 11/08/24 22:46 Nasal Cannula* 3 32 Total Intake and Output 11/08/24 11/08/24 11/09/24 15:00 23:00 07:00 Intake Total 583.33 ml 600 ml 300 ml Output Total 1000 ml 650 ml Balance 583.33 ml -400 ml -350 ml medications Current Medications Medications Dose Ordered Sig/Thanh Route Start Time Stop Time Status Last Admin Dose Admin Nitroglycerin 0.4 mg Q5MINP PRN SL 11/08/24 03:30 Morphine Sulfate 2 mg Q30M PRN IV 11/08/24 03:30 Acetaminophen/ Hydrocodone Bitart 1 tab Q6HPRN PRN PO 11/08/24 03:30 Pantoprazole Sodium 40 mg DAILY IV 11/08/24 10:00 11/09/24 08:36 40 MG Acetaminophen 650 mg Q6HPRN PRN PO 11/08/24 03:30 Atorvastatin Calcium 40 mg HS PO 11/08/24 22:00 11/08/24 22:27 40 MG Hydralazine HCl 10 mg Q6HPRN PRN IV 11/08/24 03:45 11/08/24 08:20 10 MG Alprazolam 0.5 mg DAILY PRN PO 11/08/24 05:00 11/08/24 10:25 0.5 MG Buspirone HCl 10 mg BID PO 11/08/24 10:00 11/09/24 08:36 10 MG Gabapentin 100 mg BID PO 11/08/24 10:00 11/09/24 08:37 100 MG Sertraline HCl 50 mg DAILY PO 11/08/24 10:00 11/09/24 08:36 50 MG Patient Own Medication 0.25 mg HS PO 11/08/24 22:00 Calcitriol 0.25 mcg DAILY PO 11/08/24 10:00 11/09/24 08:37 0.25 MCG Levothyroxine Sodium 75 mcg DAILY@0630 PO 11/08/24 06:30 11/09/24 06:06 75 MCG Carvedilol 12.5 mg BID PO 11/08/24 10:11 11/08/24 22:27 12.5 MG Ondansetron HCl 4 mg Q4HP PRN IV 11/08/24 11:00 11/09/24 08:36 4 MG Amiodarone HCl 200 mg Q12HR PO 11/08/24 22:00 11/09/24 08:51 200 MG Epoetin Neal-epbx 10,000 unit MWF@2100 [place] 11/09/24 21:00 Examination: GENERAL:Abnormal (Generalized weakness), LUNGS:Normal, CVS:Normal, NEURO:Normal laboratory and microbiology Laboratory Tests 11/09/24 08:33 Test 11/09/24 08:33 Range/Units Serum Glucose 148 H 74-106 mg/dL Problem List/Assessment/Plan Problem List/Assessment/Plan Non ST-elevation myocardial infarction Paroxysmal atrial fibrillation with RVR, Stage IIIa, newly diagnosed, now normal sinus rhythm Chronic HFmrEF, NYHA class III Hypertension Dyslipidemia Hypothyroidism ESRD on HD Acute on chronic anemia Hx of colon cancer with colectomy Remote hx of tobacco use including 30 pack-years Pertinent family history of coronary artery disease Anxiety Plan/Recommendation (Dr. Arroyo) Patient was seen and examined at bedside with . The patient is now back in normal sinus rhythm on continuous commercial attorney. Transthoracic echocardiogram reveals EF 45-50% with mild global hypokinesis. [id number] Score 4 points, HAS-BLED Score 3 points. The patient had severe anemia requiring one PRBC. We will continue with beta-padmini for rate control and amiodarone for antiarrhythmic control. Consider NOAC therapy if feasible as outpatient. The patient presents with multiple risk factors for coronary artery disease. Given severe anemia, we will hold off from invasive cardiac procedures at this time. There is no further inpatient cardiac workup indicated at this time. Patient educated on the need to follow up with Cardiology in the outpatient setting in 1-2 weeks post discharge. The patient verbalized an understanding. Please reconsult if needed. Thank you for allowing us to care for this patient. Please call with any questions or concerns. This medical document was created using an electronic medical record system with voice recognition software and computerized dictation system. Although this document has been carefully reviewed, there might still be some phonetic and typographical errors. Occasional wrong-word or ``sound-alike substitutions may have occurred due to the inherent limitations of voice recognition software. These areas are purely typographical due to imperfections of the software programs and do not reflect any compromise in the patient's medical care. Please read the chart carefully and recognize, using context, where these substitutions have occurred. Plan discussed with: Patient, Daughter Date of Service: Nov 09, 2024 Billing Provider: IRVING TO Common Visit Codes: [id number] INP/OBS CARE(HIGH) IRVING TO Nov 09, 2024 10:26
--- NOTE | 2024-11-09 12:43 | DVHPN2 ---
Progress Note Date Seen: Nov 09, 2024 Resident Creating Document: ROMEO NUÑEZ RESIDENT Has the PT tested + for MRSA If YES, has PT been informed?: No Medical Necessity Reason Pt with a Central, PICC or Fol: No Subjective Review of Systems Patient had dialysis today, 2 L fluid removal. Potassium was found to be 3.4 which was replaced. Patient will need to continue dialysis on her dialysis center this Thursday. Patient reports: No new complaints Changes from previous H/P or p: No Changes Review of Systems: HEENT:Normal, CVS:Normal, RESPIRATORY:Normal, GI:Normal, :Normal, MSK:Normal, NEURO:Normal Objective vital signs Vital Sign Date Time Temp Pulse Resp B/P (MAP) Pulse Ox O2 Delivery O2 Flow Rate FiO2 11/09/24 08:37 69 112/67 11/09/24 08:36 98.1 19 96 98.1 11/09/24 08:00 Nasal Cannula* 3 32 Total Intake and Output 11/08/24 11/08/24 11/09/24 15:00 23:00 07:00 Intake Total 583.33 ml 600 ml 300 ml Output Total 1000 ml 650 ml Balance 583.33 ml -400 ml -350 ml medications Current Medications Medications Dose Ordered Sig/Thanh Route Start Time Stop Time Status Last Admin Dose Admin Nitroglycerin 0.4 mg Q5MINP PRN SL 11/08/24 03:30 Morphine Sulfate 2 mg Q30M PRN IV 11/08/24 03:30 Acetaminophen/ Hydrocodone Bitart 1 tab Q6HPRN PRN PO 11/08/24 03:30 Pantoprazole Sodium 40 mg DAILY IV 11/08/24 10:00 11/09/24 08:36 40 MG Acetaminophen 650 mg Q6HPRN PRN PO 11/08/24 03:30 Atorvastatin Calcium 40 mg HS PO 11/08/24 22:00 11/08/24 22:27 40 MG Hydralazine HCl 10 mg Q6HPRN PRN IV 11/08/24 03:45 11/08/24 08:20 10 MG Alprazolam 0.5 mg DAILY PRN PO 11/08/24 05:00 11/08/24 10:25 0.5 MG Buspirone HCl 10 mg BID PO 11/08/24 10:00 11/09/24 08:36 10 MG Gabapentin 100 mg BID PO 11/08/24 10:00 11/09/24 08:37 100 MG Sertraline HCl 50 mg DAILY PO 11/08/24 10:00 11/09/24 08:36 50 MG Patient Own Medication 0.25 mg HS PO 11/08/24 22:00 Calcitriol 0.25 mcg DAILY PO 11/08/24 10:00 11/09/24 08:37 0.25 MCG Levothyroxine Sodium 75 mcg DAILY@0630 PO 11/08/24 06:30 11/09/24 06:06 75 MCG Carvedilol 12.5 mg BID PO 11/08/24 10:11 11/08/24 22:27 12.5 MG Ondansetron HCl 4 mg Q4HP PRN IV 11/08/24 11:00 11/09/24 08:36 4 MG Amiodarone HCl 200 mg Q12HR PO 11/08/24 22:00 11/09/24 08:51 200 MG Epoetin Neal-epbx 10,000 unit MWF@2100 [place] 11/09/24 21:00 Examination: GENERAL:Normal, HEENT:Normal, NECK:Normal, LUNGS:Normal, CVS:Normal, ABDOMEN:Normal, MSK:Normal, SKIN:Normal, NEURO:Normal, :Normal laboratory and microbiology Laboratory Tests 11/09/24 08:33 Test 11/09/24 08:33 Range/Units Serum Glucose 148 H 74-106 mg/dL Problem List/Assessment/Plan Problem List/Assessment/Plan Acute respiratory distress likely due to congestive heart failure 45% ejection fraction End-stage renal disease on hemodialysis Mild hypokalemia Paroxysmal Atrial fibrillation with rapid ventricular response, currently on sinus rhythm Secondary hypertension NSTEMI type 2 Severe normocytic normochromic Anemia 6.9 hb anemia of chronic disease in the setting of ESRD Subclinical hypothyroidism Colon cancer status post colectomy Anxiety Plan: 2 L fluid removal through hemodialysis Hemodialysis performed today, continues hemodialysis at her hemodialysis center this Thursday Hemoglobin stable Potassium replacement 25 p.o. effervescent No signs of fluid overload Volume status must be closely monitored given cardiac findings. Monitor pre and post dialysis weight is an electrolytes. case discussed with goals of care discussed with the patient for 21 min code status: full code Plan discussed with: Patient, Daughter My Orders My Orders Orders - ROMEO NUÑEZ Procedure Category Date Status Time Stool Occult Blood LAB 11/08/24 Logged 13:16 Potassium Effervesent PHA 11/09/24 In Process Tab (Klor-Con/Ef) 12:45 ROMEO NUÑEZ RESIDENT Nov 09, 2024 12:43
[2024-11-09] MEDS: POTASSIUM EFFERVESENT TAB 25 MEQ PO ONE (12:45)
--- NOTE | 2024-11-09 14:25 | DVHSR ---
APPROVED REPORT EXAM: Two-dimensional and M-mode echocardiogram with Doppler and color Doppler. Blood Pressure: 159/66 mmHg INDICATION Elevated trops, CHF RISK FACTORS Height: 60, Weight: 121 DIMENSIONS LVDd5.2 (3.8-5.7cm)LA (2D)4.4 (1.9-4.0cm)Aortic Root3.3 (2.0-3.7cm) LVDs3.7 (2.5-4.0cm)LA (MM) (1.9-4.0cm)Aortic Cusp Exc1.6 (1.5-2.0cm) EF (%) 54.0 (55-70%)Rt. Atrium3.5 (1.9-4.0cm)Asc. Aorta cm IVSd1.1 (0.7-1.1cm)RV (D) (1.8-2.4cm) PWd1.2 (0.7-1.1cm) Mitral Valve MitralMitral Stenosis E wave0.96m/sMV Mean GR.2mmHg A wave1.19m/sMV Peak GR.66mmHg E/A ratio0.82D MVAcm2 DECEL [id number] 1/2 Wium82gd IVRTmsDop MVA3.73cm2 Aortic Valve Aortic ValveAortic Stenosis V11.21m/[place] Mean GR.5mmHg V21.50m/[place] Peak GR.9mmHg LVOT Diameter2.0 (1.8-2.4cm)Doppler AVA2.53cm2 Pulmonic Valve V20.84m/s Other Information Quality : Technically LimitedRhythm : Technically limited study due to Conclusion LVEF borderline 45-50%, mild global hypokinesis MIld diastolic dysfunction RV function normal mildly dilated left atrium
[2024-11-09] MEDS ORDERED: AMIO200T13 PO (14:33)
[2024-11-09] MEDS ORDERED: CARV-216 PO (14:33)
[2024-11-09] MEDS ORDERED: APIX2.5T PO (14:33)
--- NOTE | 2024-11-09 14:56 | DVHDS2 ---
Discharge Summary Date of Admission Nov 08, 2024 at 03:21 Date of Discharge: Nov 09, 2024 Labs/Diagnostic Data: Laboratory Results Test 11/09/24 08:33 11/08/24 11:43 11/08/24 03:51 11/08/24 03:40 White Blood Count 6.2 10^3/uL (4.4-10.8) Red Blood Count 2.84 10^6/uL (4.0-5.20) Hemoglobin 8.4 g/dL (12.2-16.2) Hematocrit 25.4 % (36.0-46.0) Mean Corpuscular Volume 89.6 fL (80.0-100.0) Mean Corpuscular Hemoglobin 29.6 pg (28.0-32.0) Mean Corpuscular Hemoglobin Concent 33.0 g/dL (32.0-36.0) Red Cell Distribution Width 17.5 % (11.8-14.3) Platelet Count 181 10^3/uL (140-450) Mean Platelet Volume 7.5 fL (6.9-10.8) Neutrophils (%) (Auto) 72.2 % (37.0-80.0) Lymphocytes (%) (Auto) 14.2 % (10.0-50.0) Monocytes (%) (Auto) 11.4 % (0.0-12.0) Eosinophils (%) (Auto) 1.8 % (0.0-7.0) Basophils (%) (Auto) 0.4 % (0.0-2.0) Neutrophils # (Auto) 4.4 10 ^3/uL (1.6-8.6) Lymphocytes # (Auto) 0.9 10 ^3/uL (0.4-5.4) Monocytes # (Auto) 0.7 10 ^3/uL (0-1.3) Eosinophils # (Auto) 0.1 10 ^3/uL (0-0.8) Basophils # (Auto) 0 10 ^3/uL (0-0.2) Nucleated Red Blood Cells 0.1 % Sodium Level 143 mmol/L (136-145) Potassium Level 3.4 mmol/L (3.5-5.1) Chloride Level 106 mmol/L (98-107) Carbon Dioxide Level 24 mmol/L (20-31) Anion Gap 13 (5-15) Blood Urea Nitrogen 36 mg/dL (9-23) Creatinine 6.07 mg/dL (0.550-1.02) Glomerular Filtration Rate Calc 7 mL/min (>90) BUN/Creatinine Ratio 5.9 (10.0-20.0) Serum Glucose 148 mg/dL (74-106) Calcium Level 9.7 mg/dL (8.7-10.4) Magnesium Level 2.2 mg/dL (1.6-2.6) Total Bilirubin 0.2 mg/dL (0.2-1.0) Aspartate Amino Transferase (AST) 10 U/L (13-40) Alanine Aminotransferase (ALT) 53 U/L (7-40) Alkaline Phosphatase 49 U/L (46-116) Total Protein 5.7 g/dL (5.7-8.2) Albumin 3.7 g/dL (3.2-4.8) Prothrombin Time 13.8 sec (9.3-11.8) Prothrombin Time INR 1.34 (0.9-1.15) Activated Partial Thromboplast Time 43.1 SEC (24.5-34.5) Iron Level 43 ug/dL (50-170) Total Iron Binding Capacity 248 ug/dL (250-425) Percent Iron Saturation 17.3 % (15-50) Ferritin 162.6 ng/mL (10-291) Urine Color Colorless (Yellow) Urine Clarity Clear (Clear) Urine pH 8.0 (5.0-9.0) Urine Specific [place] 1.004 (1.001-1.035) Urine Protein 1+ (Negative) Urine Ketones Negative (Negative) Urine Blood Negative /uL (Negative) Urine Nitrite Negative (Negative) Urine Bilirubin Negative (Negative) Urine Urobilinogen Normal mg/dL (Negative) Urine Leukocyte Esterase Negative /uL (Negative) Urine RBC 1 /hpf (0 - 4) Urine Microscopic WBC < 1 /HPF (0-5) Urine Squamous Epithelial Cells None seen /hpf (<5) Urine Bacteria None seen /hpf (None Seen) Urine Glucose Trace mg/dL (Normal) Troponin I High Sensitivity 255 ng/L (</=34) Triglycerides Level 58 mg/dL (< 150) Cholesterol Level 110 mg/dL (< 200) LDL Cholesterol 44 mg/dL (< 100) HDL Cholesterol 53 mg/dL (40-59) Vitamin D 25-Hydroxy 30.0 ng/mL (30.0-100) Thyroid Stimulating Hormone (TSH) 5.26 uIU/mL (0.55-4.78) Free Thyroxine (T4) Calculated 0.91 ng/dL (0.89-1.76) Parathyroid Hormone (Intact) 488.5 pg/mL (18.4-80.1) Test 11/08/24 03:31 11/07/24 21:21 11/07/24 21:11 Urine Osmolality 168 mOsm/kg Urine Creatinine 9.42 mg/dL (30.0-125.0) Urine Protein/Creatinine Ratio 10.47 Urine Total Protein 98.6 mg/dL (1-14) Phosphorus Level 3.2 mg/dL (2.4-5.1) B-Type Natriuretic Peptide 477.15 pg/mL (0-100) POC Glucose 139 mg/dl (70-106) Other Laboratory Tests 11/09/24 08:33 Brief Hx & Hospital Course: 69-year-old female with a known history of hypertension, hypothyroidism, end- stage renal disease on hemodialysis, recent diagnosis of colon cancer in December 2023 status post partial colectomy, left AV fistula initially presented to the hospital with generalized weakness and palpitations found to have with a RVR requiring Cardizem drip which was switched to amiodarone. Patient is currently in normal sinus rhythm off the amiodarone. Patient's mildly elevated troponin suspected secondary to demand ischemia secondary to AFib with a RVR. Cardiology evaluated the patient and recommended the patient to be on anticoagulants for primary prevention of stroke. Patient has also had anemia without any active evidence of bleeding status post 1 unit of packed RBC and currently getting dialysis as well. Patient is being discharged under stable condition with the home health home safety evaluation. Patient will be on amiodarone Eliquis as well as beta padmini. Condition at Discharge: Stable Final Diagnosis/Problems List 69-year-old female with a known history of hypertension, hypothyroidism, end-stage renal disease on hemodialysis, recent diagnosis of colon cancer in December 2023 status post partial colectomy, left AV fistula initially presented to the hospital with generalized weakness and palpitations found to have 1. AFib with RVR , currently converted to normal sinus rhythm 2. Elevated troponin ruled out acute AR 3. Congestive heart failure unspecified currently compensated 4. End-stage renal disease on hemodialysis 5. Hypertension 6. Hypothyroidism 7. History of colon cancer status post partial colectomy, currently in remission Discharge Disposition: Home with Health Services SN[facility] Discharge Will this Physician continue t: No Discharge Instruct/Medications Diet: Cardiac 2g Na,low cholest Activity: No Restrictions, As Tolerated Follow Up/Referral: Follow up with the PCP in 1-2 weeks Follow up with Dr. Arroyo in 1-2 weeks Medications: New prescription prescribed are : Eliquis 2.5 p.o. twice a day with meals amiodarone 200 mg p.o. twice a day Carvedilol 12.5 mg p.o. q.12 hours Discharge Statement: "Patient was advised to return to the ER or call 911 if any headaches, dizziness, shortness of breath, chest pain, abdominal pain, bleeding, fevers, or worsening of medical condition. Patient was counseled about treatment plan, medications, possible side effects, patientverbalized understanding. All questions were answered to the best of my ability. This discharge took greater then 30 minutes in planning, reviewing documentation, counseling the patient, and discussing with other team members." ASSESSMENT ASSESSMENT Assessment 69-year-old female with a known history of hypertension, hypothyroidism, end- stage renal disease on hemodialysis, recent diagnosis of colon cancer in December 2023 status post partial colectomy, left AV fistula initially presented to the hospital with generalized weakness and palpitations found to have 1. AFib with RVR , currently converted to normal sinus rhythm 2. Elevated troponin ruled out acute AR 3. Congestive heart failure unspecified currently compensated 4. End-stage renal disease on hemodialysis 5. Hypertension 6. Hypothyroidism 7. History of colon cancer status post partial colectomy, currently in remission Date of Service: Nov 09, 2024 Billing Provider: NHI CHIRINOS MD Common Visit Codes: NOT BILLABLE NHI CHIRINOS MD Nov 09, 2024 14:56
[2024-11-09] MEDS ORDERED: EPOETIN ALFA-EPBX 10,000 UNIT/1ML VIAL SC SCH (21:00)
== END 2024-11-09 17:25 | disposition home or self-care (01) | DRG 682 ==
LOC: ER 20:55 → EDBD 20:55 → OVERFLOW 11-08 03:21 → TELE-WESTW 11-08 21:09
PROVIDERS: ADMIT Nurse Practitioner Family; ATTEND Nurse Practitioner Family
PROC: 30233N1 Transfusion of Nonautologous Red Blood Cells into Peripheral Vein, Percutaneous Approach (ICD-10-PCS; principal; 2024-11-08)
PROC: 5A1D70Z Performance of Urinary Filtration, Intermittent, Less than 6 Hours Per Day (ICD-10-PCS; 2024-11-09)
DX: N17.0 Acute kidney failure with tubular necrosis (principal); I50.33 Acute on chronic diastolic (congestive) heart failure; J96.00 Acute respiratory failure, unspecified whether with hypoxia or hypercapnia; I13.2 Hypertensive heart and chronic kidney disease with heart failure and with stage 5 chronic kidney disease, or end stage renal disease; I48.0 Paroxysmal atrial fibrillation; N18.6 End stage renal disease; E87.6 Hypokalemia; E03.9 Hypothyroidism, unspecified; F41.9 Anxiety disorder, unspecified; D63.8 Anemia in other chronic diseases classified elsewhere; E78.5 Hyperlipidemia, unspecified; Z88.1 Allergy status to other antibiotic agents; Z88.5 Allergy status to narcotic agent; Z88.8 Allergy status to other drugs, medicaments and biological substances; Z79.899 Other long term (current) drug therapy; Z85.038 Personal history of other malignant neoplasm of large intestine; Z82.49 Family history of ischemic heart disease and other diseases of the circulatory system; Z63.4 Disappearance and death of family member; Z80.0 Family history of malignant neoplasm of digestive organs; Z99.2 Dependence on renal dialysis; Z87.891 Personal history of nicotine dependence; Z90.49 Acquired absence of other specified parts of digestive tract
CPT/HCPCS: 36415; 71045; 80048; 80053; 80061; 81001; 82306; 82570; 82728; 82962; 83540; 83550; 83735; 83880; 83935; 83970; 84100; 84156; 84439; 84443; 84484; 85014; 85018; 85025; 85610; 85730; 86850; 86900; 86901; 86920; 87081; 87086; 90935; 93005; 93306; 96365; 99291; G0378; J2405; J2470